=== PATIENT | female | born 1960 | race Caucasian/White ===

== ENCOUNTER 2020-06-09 14:18 | Outpatient (CLI) | payer OTHER, SELFPAY ==
--- NOTE | ~2020-06-09 | XR_ITS ---
XR lumbar spine 2-3V DATE: 06/09/2020 14:40 INDICATION: Low back pain. Injured back lifting items upstairs. TECHNIQUE: AP, lateral, coned lateral lumbosacral views COMPARISON: 05/24/2016 lumbar spine FINDINGS: There is interval mild anterior wedge compression fracture deformity of L3 since 05/24/2006, very likely acute. No other fracture of the lumbar spine is evident. There is diffuse osteopenia. There is severe degenerative disc disease at L5-S1. The sacroiliac joints are intact. Abdominal aortic and bilateral iliac arterial calcifications are noted. IMPRESSION: Likely acute mild anterior wedge compression fracture of L3 Severe degenerative disc disease at L5-S1 Diffuse osteopenia Reviewed, dictated and finalized at location B.
== END 2020-06-09 14:19 | disposition home or self-care (01) ==
LOC: ANHIMG 14:25
PROVIDERS: PCP Physician Assistant; Visit Provider Physician Assistant
DX: M54.5 Low back pain (principal); M51.37 Other intervertebral disc degeneration, lumbosacral region; M85.88 Other specified disorders of bone density and structure, other site
CPT/HCPCS: 72100

== ENCOUNTER 2020-07-02 06:33 | Outpatient (CLI) | payer OTHER, SELFPAY ==
--- NOTE | ~2020-07-02 | MR_ITS ---
EXAMINATION: MR lumbar spine wo con DATE: 07/02/2020 07:13 INDICATION: Wedge fracture of lumbar vertebra. TECHNIQUE: Magnetic resonance imaging (MRI) of the lumbar spine was performed without intravenous con trast. Sequences included sagittal T2-weighted FSE, sagittal STIR FSE, sagittal T1-weighted FSE, and axial T2-weighted FSE. COMPARISON: Lumbar spine radiographs 06/09/2020 FINDINGS: There is 3 degrees levocurvature of lumbar spine. There is a burst fracture of L3 superior endplate with 1/5 loss of height, bone marrow edema, and retropulsion of bone 1 mm into central spina l canal. There is mildly decreased disc height at L4-L5 and severely decreased disc height at L5-S1. The distal spinal cord signal intensity is normal. The conus medullaris is at L1. The following disc levels are specifically discussed: L1-L2: The disc does not extend beyond the endplate margin. There is mild bilateral facet joint osteo arthritis. There is no neural foraminal stenosis. There is no central canal stenosis. L2-L3: The disc is bulging. There is mild bilateral facet joint osteoarthritis. There is mild bilater al neural foraminal stenosis. There is mild central canal stenosis. L3-L4: The disc is bulging. There is mild bilateral facet joint osteoarthritis. There is mild bilater al neural foraminal stenosis. There is no central canal stenosis. L4-L5: The disc is bulging. There is mild right facet joint osteoarthritis. There is mild bilateral n eural foraminal stenosis. There is mild central canal stenosis. L5-S1: The disc is bulging with superimposed right central extrusion that abuts right S1 nerve root i n right lateral recess. There is severe bilateral facet joint osteoarthritis. There is mild bilateral neural foraminal stenosis. There is mild central canal stenosis. IMPRESSION: 1. Subacute L3 burst fracture, stable from 06/09/2020. 2. Severe lower lumbar spondylosis. Reviewed, dictated and finalized at location B.
[2020-07-02 07:39] LABS: Add Urine Microscopic? YES; Appearance Urine Cloudy (Clear); Bacteria Urine Trace /hpf; Bilirubin Urine Negative (Negative); Blood Urine 1+ (Negative); Color Urine Straw (Yellow); Glucose Urine UA Negative (Negative); Ketones Urine Negative (Negative); Leukocyte Esterase Ur Trace LEU/UL (Negative); Mucus Urine Rare /lpf; Nitrate Urine Negative (Negative); Protein Urine Negative (Negative); RBC Urine 0-2 /hpf (0-2); Specific Grav Ur 1.015 (1.001-1.035); Squamous Epithelial Cell Urine Many /hpf (Few); Urobilinogen Urine Negative mg/dL (<2.0); WBC Urine 0-3 /hpf
[2020-07-02 07:46] LABS: Hemoglobin A1C 5.6 % (<5.7)
[2020-07-02 07:48] LABS: Alanine Aminotransferase 22 U/L (4-35); Albumin Level 4.3 g/dL (3.5-5.1); Alkaline Phosphatase 84 U/L (38-126); Anion Gap 8 mmol/L (8-16); Aspartate Amino Transferase 22 U/L (14-36); Bilirubin,Total 0.4 mg/dL (0.2-1.3); Blood Urea Nitrogen 40 mg/dL (7-17); Calcium 8.9 mg/dL (8.4-10.2); Carbon Dioxide 26 mmol/L (22-30); Chloride 101 mmol/L (98-107); Cholesterol 217 mg/dL (0-200); Estimated Glomerular Filt Rate 51; Glucose 99 mg/dL (65-105); HDL Direct 68 mg/dL; Potassium 3.7 mmol/L (3.4-5.0); Sodium 135 mmol/L (137-145); Triglycerides 119 mg/dL (<150)
[2020-07-02 07:55] LABS: Basophils Absolute Auto 0.1 K/mm3 (0.0-0.1); Basophils Percent Auto 0.8 % (0.2-1.2); Eosinophils Absolute Auto 0.3 K/mm3 (0-0.3); Eosinophils Percent Auto 3.9 % (0-4.4); Hematocrit 39.4 % (37.0-47.0); Hemoglobin 12.6 g/dL (12.0-15.0); Immature Granulocyte Absolute 0.04 K/mm3 (0.00-0.031); Immature Granulocyte Percent A 0.5 % (0-0.5); Lymphocytes Absolute Auto 2.19 K/mm3 (0.9-3.2); Lymphocytes Percent Auto 27.4 % (18.3-44.2); Mean Corpuscular Hemoglobin 28.6 pg (26-34); Mean Corpuscular Volume 89.5 fl (80-100); Mean Platelet Volume 9.5 fl (7.4-10.4); Monocytes Absolute Auto 0.9 K/mm3 (0.1-0.6); Monocytes Percent Auto 11.4 % (2.6-8.5); Neutrophils Absolute Auto 4.5 K/mm3 (1.3-6.7); Platelet Count Result 284 k/mm3 (150-375); Red Cell Distribution Width 14.6 % (11.5-14.5)
[2020-07-02 07:59] LABS: LDL Cholesterol Direct 126 mg/dL
[2020-07-02 08:18] LABS: Vitamin D 25 Hydroxy 35.3 ng/mL
== END 2020-07-02 06:34 | disposition home or self-care (01) ==
PROVIDERS: PCP Physician Assistant; Visit Provider Physician Assistant
DX: E55.9 Vitamin D deficiency, unspecified (principal); S32.000A Wedge compression fracture of unspecified lumbar vertebra, initial encounter for closed fracture; I10 Essential (primary) hypertension; E78.5 Hyperlipidemia, unspecified; Z79.899 Other long term (current) drug therapy; Z13.1 Encounter for screening for diabetes mellitus; S32.031A Stable burst fracture of third lumbar vertebra, initial encounter for closed fracture; M47.816 Spondylosis without myelopathy or radiculopathy, lumbar region
CPT/HCPCS: 36415; 72148; 80048; 80061; 80076; 81001; 82306; 83036; 84443; 85025

== ENCOUNTER 2021-03-14 07:25 | Outpatient (CLI) | payer OTHER, SELFPAY ==
[2021-03-14 08:14] LABS: Basophils Absolute Auto 0.1 K/mm3 (0.0-0.1); Basophils Percent Auto 0.5 % (0.2-1.2); Eosinophils Absolute Auto 0.2 K/mm3 (0-0.3); Eosinophils Percent Auto 1.7 % (0-4.4); Hematocrit 40.7 % (37.0-47.0); Immature Granulocyte Absolute 0.04 K/mm3 (0.00-0.031); Immature Granulocyte Percent A 0.4 % (0-0.5); Lymphocytes Absolute Auto 2.02 K/mm3 (0.9-3.2); Lymphocytes Percent Auto 20.6 % (18.3-44.2); Mean Corpuscular HGB Conc 31.9 g/dl (32-36); Mean Corpuscular Hemoglobin 28.4 pg (26-34); Mean Corpuscular Volume 89.1 fl (80-100); Mean Platelet Volume 9.4 fl (7.4-10.4); Monocytes Absolute Auto 1.1 K/mm3 (0.1-0.6); Monocytes Percent Auto 10.7 % (2.6-8.5); Neutrophils Absolute Auto 6.5 K/mm3 (1.3-6.7); Neutrophils Percent Auto 66.1 % (45.5-73.1); Platelet Count Result 289 k/mm3 (150-375); Red Blood Count 4.57 M/mm3 (4.2-5.4); Red Cell Distribution Width 14.2 % (11.5-14.5); White Blood Count 9.8 K/mm3 (4.5-10.0)
[2021-03-14 08:16] LABS: Add Urine Microscopic? YES; Appearance Urine Cloudy (Clear); Bacteria Urine Trace /hpf; Bilirubin Urine Negative (Negative); Blood Urine 1+ (Negative); Color Urine Yellow (Yellow); Glucose Urine UA Negative (Negative); Ketones Urine Negative (Negative); Leukocyte Esterase Ur 1+ LEU/UL (Negative); Mucus Urine Rare /lpf; Nitrate Urine Negative (Negative); Protein Urine 1+ mg/dL (Negative); Specific Grav Ur 1.025 (1.001-1.035); Squamous Epithelial Cell Urine Many /hpf (Few); Urobilinogen Urine Negative mg/dL (<2.0)
[2021-03-14 08:23] LABS: Hemoglobin A1C 5.6 % (<5.7)
[2021-03-14 08:26] LABS: Alanine Aminotransferase 18 U/L (4-35); Albumin Level 4.3 g/dL (3.5-5.1); Alkaline Phosphatase 82 U/L (38-126); Anion Gap 9 mmol/L (8-16); Aspartate Amino Transferase 22 U/L (14-36); Bilirubin,Total 0.5 mg/dL (0.2-1.3); Blood Urea Nitrogen 32 mg/dL (7-17); Calcium 9.4 mg/dL (8.4-10.2); Carbon Dioxide 26 mmol/L (22-30); Chloride 104 mmol/L (98-107); Cholesterol 223 mg/dL (0-200); Estimated Glomerular Filt Rate > 60; Glucose 104 mg/dL (65-105); HDL Direct 74 mg/dL; Potassium 3.4 mmol/L (3.4-5.0); Sodium 139 mmol/L (137-145); Triglycerides 76 mg/dL (<150)
[2021-03-14 08:37] LABS: LDL Cholesterol Direct 121 mg/dL
== END 2021-03-14 07:26 | disposition home or self-care (01) ==
PROVIDERS: PCP Physician Assistant; Visit Provider Physician Assistant
DX: E78.5 Hyperlipidemia, unspecified (principal); Z79.899 Other long term (current) drug therapy; Z13.1 Encounter for screening for diabetes mellitus
CPT/HCPCS: 36415; 80053; 80061; 81001; 83036; 84443; 85025

== ENCOUNTER → 2021-03-15 06:47 | Outpatient (CLI) | payer OTHER, SELFPAY ==
[2021-03-15 20:46] LABS: SARS-CoV-2 RNA PCR Negative
== END ==
PROVIDERS: PCP Physician Assistant; Visit Provider Internal Medicine Gastroenterology
DX: Z01.812 Encounter for preprocedural laboratory examination (principal); Z20.822 Contact with and (suspected) exposure to COVID-19
CPT/HCPCS: C9803; U0003; U0005

== ENCOUNTER 2021-03-16 12:51 | Outpatient (CLI) | payer OTHER, SELFPAY | END 2021-03-16 12:52 | disposition home or self-care (01) | LOC: ANHAUDIO 12:52 | PROVIDERS: PCP Physician Assistant; Visit Provider Physician Assistant | DX: H90.3 Sensorineural hearing loss, bilateral (principal) | CPT/HCPCS: 92557; 92567 ==

== ENCOUNTER 2021-03-18 01:06 | Day surgery (SDC) | payer OTHER, SELFPAY ==
[2021-03-14 15:35] VITALS: BMI 30.7
[2021-03-18 11:59] VITALS: BMI 30.8
[2021-03-18] MEDS: LACTATED RINGERS 1,000 ML 150 ML IV CONT (12:05)
--- NOTE | 2021-03-18 12:06 | WPDANESEPPF ---
Anes - Initial Pre Proc Eval Procedure: Operation Date: 03/18/21 13:00 Proposed Procedures p Esophagogastroduodenoscopy - Nj Wolff MD Date/Time: 03/18/21 12:06 Surgeon: Nj Wolff MD Pre Op Diagnosis: GERD Patient Data Age: 61 Gender: F Height: 5 ft 1 in Weight: 74 kg Allergies Allergy/AdvReac Type Severity Reaction Status Date / Time No Known Allergies Allergy Unverified 03/18/21 11:44 Home Medications Medication Instructions Recorded Confirmed Type diclofenac sodium 75 mg PO DAILY 10/25/19 03/14/21 History esomeprazole magnesium 40 mg PO DAILY 10/25/19 03/14/21 History fluoxetine [Prozac] 20 mg PO DAILY 10/25/19 03/14/21 History hydrochlorothiazide 12.5 mg PO DAILY 10/25/19 03/14/21 History losartan 100 mg PO DAILY 10/25/19 03/14/21 History rosuvastatin 20 mg PO DAILY 10/25/19 03/14/21 History pantoprazole 40 mg PO DAILY 03/14/21 03/14/21 History Patient hx anesthesia problems: none Family hx anesthesia problems: none PMFSH Past Medical History Medical History (Updated 03/18/21 @ 12:06 by George Leahy MD) Anxiety GERD (gastroesophageal reflux disease) Hyperlipidemia Hypertension Family History Family History (Updated 02/23/17 @ 23:56 by DOCTOR UNKNOWN) Father Family history of premature coronary heart disease, Onset Age: 60 Patient's father is Mother Hypertension Family history of elevated blood lipids Other Family history of osteoarthritis Social History Social History Smoking status: Former smoker Tobacco type: cigarettes Alcohol intake: never Substance use type: does not use Living arrangements: with family Gender identity (if verbalized by the patient): Female Spiritual care concerns: No Anes - Eval Final PreProcedure Day of Procedure 03/18/21 12:06 Patient weight: overweight Heart: regular rate and rhythm Lungs: clear to auscultation Airway: Mallampati scale class II Neurological: alert and oriented Last oral intake: >/= 8 hours ASA classification: III Emergent: no Anesthetic plan: proceed Anesthesia type and monitoring: general GIVS and standard monitoring Informed Consent: The patient's anesthetic plan and its attendant risks and benefits were discussed with the patient/family/POA. Questions were solicited and answers provided to the satisfaction of the patient/family/POA.
--- NOTE | 2021-03-18 12:49 | P.CONGI_ITS ---
Assessment and Plan Assessment and plan (1) GERD (gastroesophageal reflux disease): Code(s): K21.9 - Gastro-esophageal reflux disease without esophagitis Status: Inactive Assessment and Plan: patient has chronic heartburn. Many of his symptoms have improved with pantoprazole. She continues to have additional discomfort burning. Is for EGD to assess ongoing pain. Further recommendations will be given after endoscopy. (2) Dysphagia: Code(s): R13.10 - Dysphagia, unspecified Status: Acute Assessment and Plan: Patient notes food catching the mid substernal portion the chest. Plan is for EGD to assess and exclude narrowing or stricture. Further recommendations will be given after endoscopy. GI Consult Note Consult date/time: 03/18/21 12:49 HPI: Rachel Raman is a 61 year old female Presents for evaluation of substernal pain and dysphagia. Patient complains of epigastric substernal discomfort. She has has GE reflux for many years but this symptom has persisted over the last several months. She states that food will catch in the mid substernal portion of the chest. Previously on Nexium her medications were rec ently taken and changed to pantoprazole. She states this helps her heartburn but the chest pain persists. Patient denies any weight loss. Because of ongoing pain she has presents today for EGD. Family history is noncontributory. She denies weight loss or bleeding. Review of Systems Review of Systems: All systems reviewed & are unremarkable except as noted in HPI and below PMFSH Past Medical History Medical History (Updated 03/18/21 @ 12:51 by Nj Wolff MD) Anxiety GERD (gastroesophageal reflux disease) Hyperlipidemia Hypertension Family History Family History (Updated 02/23/17 @ 23:56 by DOCTOR UNKNOWN) Father Family history of premature coronary heart disease, Onset Age: 60 Patient's father is Mother Hypertension Family history of elevated blood lipids Other Family history of osteoarthritis Social History Social History Smoking status: Former smoker Tobacco type: cigarettes Alcohol intake: never Substance use type: does not use Living arrangements: with family Gender identity (if verbalized by the patient): Female Spiritual care concerns: No Meds Home Medications and Allergies Home Medications Medication Instructions Recorded Confirmed Type diclofenac sodium 75 mg PO DAILY 10/25/19 03/14/21 History esomeprazole magnesium 40 mg PO DAILY 10/25/19 03/14/21 History fluoxetine [Prozac] 20 mg PO DAILY 10/25/19 03/14/21 History hydrochlorothiazide 12.5 mg PO DAILY 10/25/19 03/14/21 History losartan 100 mg PO DAILY 10/25/19 03/14/21 History rosuvastatin 20 mg PO DAILY 10/25/19 03/14/21 History pantoprazole 40 mg PO DAILY 03/14/21 03/14/21 History Allergies Allergy/AdvReac Type Severity Reaction Status Date / Time No Known Allergies Allergy Unverified 03/18/21 11:44 Exam Narrative: Exam Narrative: Physical exam reveals patient to be alert. Vital signs stable. HEENT exam unremarkable. Patient is anicteric. Lungs are clear to auscultation and Percussion. Heart is without murmur. abdomen is soft bowel sounds are present nontender with no organomegaly. Digital external rectal exam normal per
[2021-03-18 13:05] VITALS: BP 120/73; PULSE 61; RESP 13; O2SAT 96
[2021-03-18 13:15] VITALS: BP 127/94; PULSE 65; RESP 17; O2SAT 98
[2021-03-18 13:25] VITALS: BP 133/71; PULSE 62; RESP 21; O2SAT 97
== END 2021-03-18 13:44 | disposition home or self-care (01) ==
PROVIDERS: PCP Physician Assistant; Visit Provider Internal Medicine Gastroenterology
PROC: 0DJ08ZZ Inspection of Upper Intestinal Tract, Via Natural or Artificial Opening Endoscopic (ICD-10-PCS; CPT 43235; principal; 2021-03-18 13:00)
DX: R10.13 Epigastric pain (principal); K44.9 Diaphragmatic hernia without obstruction or gangrene; R13.10 Dysphagia, unspecified; F41.9 Anxiety disorder, unspecified; K21.9 Gastro-esophageal reflux disease without esophagitis; E78.5 Hyperlipidemia, unspecified; I10 Essential (primary) hypertension; Z87.891 Personal history of nicotine dependence
CPT/HCPCS: 43235; J2704; J7120

== ENCOUNTER 2021-04-11 08:18 | Outpatient (CLI) | payer OTHER, SELFPAY ==
--- NOTE | ~2021-04-11 | XR_ITS ---
EXAMINATION: XR UGIAC w barium swallow DATE: 04/11/2021 08:58 INDICATION: Diaphragmatic hernia without obstruction or gangrene TECHNIQUE: The patient drank thick barium, gas-producing crystals, and thin barium. Fluoroscopy of th e esophagus, stomach, and proximal small bowel were performed. Fluoroscopy exposure time was 2.1 radha gudelia. The DAP for this procedure was 13.569 Gycm2. COMPARISON: None. FINDINGS: There is no mass or stricture of the esophagus. Esophageal motility is normal. There is a l arge hiatal hernia with much of the stomach intrathoracic in location. Overall there has been little change since the comparison examination. There was no gastroesophageal reflux with provocative maneuv ers. The stomach and proximal small bowel show normal folding patterns. IMPRESSION: 1. Large hiatal hernia without significant change. Reviewed, dictated and finalized at location A.
== END 2021-04-11 08:19 | disposition home or self-care (01) ==
PROVIDERS: PCP Physician Assistant; Visit Provider Surgery
DX: K44.9 Diaphragmatic hernia without obstruction or gangrene (principal)
CPT/HCPCS: 74246

== ENCOUNTER 2021-04-11 15:00 | Outpatient (RCR) | payer OTHER, SELFPAY | END 2021-04-11 23:59 | disposition home or self-care (01) | LOC: ANHAUDIO 15:00 | PROVIDERS: PCP Physician Assistant; Visit Provider Physician Assistant | DX: Z46.1 Encounter for fitting and adjustment of hearing aid (principal) | CPT/HCPCS: V5261 ==

== ENCOUNTER 2021-05-28 06:56 | Outpatient (CLI) | payer OTHER, SELFPAY ==
--- NOTE | 2021-05-28 07:17 | ECG_ITS ---
Measurements Intervals [place] Rate: 70 P: 50 WA: 159 QRS: 50 QRSD: 86 T: 53 QT: 396 QTc: 429 Interpretive Statements SINUS RHYTHM POSSIBLE LEFT ATRIAL ENLARGEMENT DELAYED PRECORDIAL R/S TRANSITION BASELINE ARTIFACT- I, II, III, AVR, AVL, AVF BORDERLINE ECG Electronically Signed On 05-28-2021 15:13:43 CDT by Benjamin Allen D.O.
[2021-05-28 07:24] LABS: Anion Gap 12 mmol/L (8-16); Blood Urea Nitrogen 34 mg/dL (7-17); Carbon Dioxide 23 mmol/L (22-30); Chloride 104 mmol/L (98-107); Estimated Glomerular Filt Rate 56; Glucose 86 mg/dL (65-105); Potassium 3.9 mmol/L (3.4-5.0); Sodium 139 mmol/L (137-145)
== END 2021-05-28 06:57 | disposition home or self-care (01) ==
LOC: ANHLAB 06:58
PROVIDERS: PCP Physician Assistant; Referring Provider Anesthesiology; Visit Provider Surgery
DX: Z01.818 Encounter for other preprocedural examination (principal); Z53.31 Laparoscopic surgical procedure converted to open procedure; I10 Essential (primary) hypertension
CPT/HCPCS: 36415; 80048; 86850; 86900; 86901; 93005

== ENCOUNTER 2021-06-01 13:51 | Inpatient (IN) | payer OTHER, SELFPAY ==
[2021-05-25 13:16] VITALS: BMI 30.8
--- NOTE | 2021-05-30 17:12 | PM.IMHP ---
H&P: HPI History of Present Illness Date/Time: 05/30/21 17:12 Chief Complaint: Chest pain after eating Narrative: patient is a 61-year-old woman who has had trouble with dysphagia and chest pain for quite some time. She had heartburn with burning pain in the substernal area but this was pretty much relieved by taking Protonix daily. However she would notice substernal chest pain that lasted anywhere from 30 minutes to a few hours after eating. She feels that food gets stuck after swallowing. She was seen by Dr. jasmyn mckeon in February and underwent an EGD. This showed a very large hiatal hernia. She was seen in my office in consultation. She had a barium swallow upper GI which showed a very large hiatal hernia with nearly complete intrathoracic stomach. She also underwent esophageal manometry at [facility]. This showed a large hiatal hernia. It also showed normal esophageal peristalsis and a hypotensive lower esophageal sphincter. After discussion, she is taken to surgery now for laparoscopic repair of paraesophageal hiatal hernia with Sherrell fundoplication. Review of Systems Review of Systems: All systems reviewed & are unremarkable except as noted in HPI and below Constitutional: Constitutional: Denies chills and Denies fever(s) Cardiovascular: Cardiovascular: Reports chest pain, Denies diaphoresis, Denies dyspnea and Denies paroxysmal nocturnal dyspnea Respiratory: Respiratory: Denies chest congestion, Denies cough and Denies dyspnea Gastrointestinal: Gastrointestinal: Reports as per HPI and Reports heartburn Integumentary/Breasts: Skin/Breast: Denies lesions and Denies rash PMFSH Past Medical History Medical History Anxiety Depression GERD (gastroesophageal reflux disease) Hyperlipidemia Hypertension Surgical History Surgical History H/O: hysterectomy S/p bilateral carpal tunnel release S/P hemorrhoidectomy S/P trigger finger release Family History Family History Father Family history of premature coronary heart disease, Onset Age: 60 Patient's father is Mother Hypertension Family history of elevated blood lipids Unknown Heart disease Hypertension Nervous disorder Other Family history of osteoarthritis Social History Social History Smoking packs per day: 0.15 Smoking cigarettes per day: 3.0 Years smoked: 5 Smoking pack-years: 0.75 Smoking status: Former smoker Tobacco type: cigarettes Smoking end date: 11/19/89 Alcohol intake: current Substance use: never Substance use type: does not use Gender identity (if verbalized by the patient): Female Spiritual care concerns: No Meds Home Medications and Allergies Home Medications Medication Instructions Recorded Confirmed Type diclofenac sodium 75 mg PO DAILY 10/25/19 05/25/21 History fluoxetine [Prozac] 40 mg PO DAILY 10/25/19 05/25/21 History hydrochlorothiazide 12.5 mg PO DAILY 10/25/19 05/25/21 History losartan 100 mg PO DAILY 10/25/19 05/25/21 History rosuvastatin 20 mg PO DAILY 10/25/19 05/25/21 History pantoprazole 40 mg PO DAILY 03/14/21 05/25/21 History Allergies Allergy/AdvReac Type Severity Reaction Status Date / Time No Known Allergies Allergy Verified 04/04/21 13:57 Exam Const: General: comfortable, no acute distress, alert and awake HENMT: Head: normocephalic and atraumatic Ears: hearing grossly normal bilaterally ( Patient has bilateral hearing aids) and external ears normal General nose exam: Normal external nose present, no nasal discharge noted and no epistaxis Face and sinus: normal facial exam, face symmetric, no tenderness and dry mucous membranes Mouth: Yes Normal oral and palatal mucosa present and No tongue abnormal Eyes: Conjunctivae:
[2021-06-01] VITALS (15 sets, daily range): BP systolic 112–146; BP diastolic 59–85; PULSE 67–87; RESP 12–18; TEMP 35.8–36.7; O2SAT 93–100
--- NOTE | ~2021-06-01 | XR_ITS ---
EXAMINATION: XR esophogram water soluble DATE: 06/04/2021 11:24 INDICATION: Patient status post repair of esophageal laceration TECHNIQUE: The patient drank water-soluble contrast. Fluoroscopy of the esophagus was performed. Fluo roscopy exposure time was 0.8 minutes. The DAP for this procedure was 21.923 Gycm2. COMPARISON: 04/11/2021 FINDINGS: Changes of interval hiatal hernia repair are noted. No esophageal leak is identified. IMPRESSION: 1. No esophageal leak identified. Reviewed, dictated and finalized at location A.
--- NOTE | 2021-06-01 06:26 | WPDANESEPPF ---
Anes - Initial Pre Proc Eval Procedure: Operation Date: 06/01/21 07:30 Proposed Procedures p Laparoscopic Sherrell Fundoplication - Tima Victor MD Date/Time: 06/01/21 06:26 Surgeon: Tima Victor MD Pre Op Diagnosis: paraesophageal hiatal hernia Patient Data Age: 61 Gender: F Height: 1.55 m Weight: 74 kg Allergies Allergy/AdvReac Type Severity Reaction Status Date / Time No Known Allergies Allergy Verified 06/01/21 06:14 Home Medications Medication Instructions Recorded Confirmed Type diclofenac sodium 75 mg PO DAILY 10/25/19 06/01/21 History fluoxetine [Prozac] 40 mg PO DAILY 10/25/19 06/01/21 History hydrochlorothiazide 12.5 mg PO DAILY 10/25/19 06/01/21 History losartan 100 mg PO DAILY 10/25/19 06/01/21 History rosuvastatin 20 mg PO DAILY 10/25/19 06/01/21 History pantoprazole 40 mg PO DAILY 03/14/21 06/01/21 History Patient hx anesthesia problems: none Family hx anesthesia problems: none PMFSH Past Medical History Medical History (Updated 06/01/21 @ 06:26 by Paras Sorensen MD) Anxiety Depression GERD (gastroesophageal reflux disease) Hyperlipidemia Hypertension SVT (supraventricular tachycardia) Surgical History Surgical History H/O: hysterectomy S/p bilateral carpal tunnel release S/P hemorrhoidectomy S/P trigger finger release Family History Family History Father Family history of premature coronary heart disease, Onset Age: 60 Patient's father is Mother Hypertension Family history of elevated blood lipids Unknown Heart disease Hypertension Nervous disorder Other Family history of osteoarthritis Social History Social History Smoking packs per day: 0.15 Smoking cigarettes per day: 3.0 Years smoked: 5 Smoking pack-years: 0.75 Smoking status: Former smoker Tobacco type: cigarettes Smoking end date: 11/19/89 Alcohol intake: current Substance use: never Substance use type: does not use Living arrangements: with family Gender identity (if verbalized by the patient): Female Sexual Orientation (if Verbalized by the Patient): Lesbian, Hyatt, or Homosexual Spiritual care concerns: No Anes - Eval Final PreProcedure Day of Procedure 06/01/21 06:26 Patient weight: obese Heart: regular rate and rhythm Lungs: clear to auscultation Airway: Mallampati scale class II Neurological: alert and oriented Last oral intake: >/= 8 hours ASA classification: III Emergent: no Anesthetic plan: proceed Anesthesia type and monitoring: general ETT and standard monitoring Informed Consent: The patient's anesthetic plan and its attendant risks and benefits were discussed with the patient/family/POA. Questions were solicited and answers provided to the satisfaction of the patient/family/POA.
[2021-06-01] MEDS: LACTATED RINGERS 1,000 ML 30 ML IV CONT ×2 (06:50→12:01)
--- NOTE | 2021-06-01 06:54 | WPDHPUPDATE1 ---
History and Physical Update Update Date/Time: 06/01/21 06:54 History and Physical has been reviewed, including an updated exam of the patient. There are NO changes in the patient's condition. Risks, benefits, and alternatives have been discussed and questions answered. Patient agrees to proceed with procedure.
[2021-06-01] MEDS: ceFAZolin 2 GM/D5W 50 ML 2 GM/50 ML BAG IVPB (07:23)
[2021-06-01] MEDS: BUPIVACAINE/EPINEPHRINE 0.5% 30 ML VIAL INFILTRATE (07:49)
[2021-06-01] MEDS: ceFAZolin 1 GM in DEXTROSE 5% IN WATER 50 ML IVPB (12:27)
[2021-06-01] MEDS: fentaNYL CITRATE INJ (*CRX) 100 MCG/2 ML VIAL 25 MCG IV PUSH ×6 (12:39→13:26)
--- NOTE | 2021-06-01 12:42 | SUR.PHASEI ---
1235; DR CABAN AT BEDSIDE, SPEAKING WITH PT REGARDING PAIN CONTROL. PT STARTED MOANING SOFTLY 5-6 MINUTES AGO. PT STATES PAIN 4/10. DR CABAN SAID IF PAIN WORSENS SHE CAN HAVE OTHER MEANS OF PAIN CONTROL. DR FINNEY ORDERED A TEST ENGINE MECHANIC FOR THE FLOOR.
--- NOTE | 2021-06-01 13:20 | SUR.PHASEI ---
DR FINNEY AT BEDSIDE SPEAKING WITH PT. NOTIFIED OF 2 SHADOW DRAINAGE SPOTS, CIRCLED.
--- NOTE | 2021-06-01 13:55 | ADMGEN ---
This patient, Rachel Raman, was admitted to Medical Room 250-01. Patient/family oriented to hospital policies and general routines including ID bracelet, bed and alarms, visiting hours, pain management, procedures, bathroom and other care routines, personal items, smoking policy, room service/diet, and visiting hours. Information on how to activate the Rapid Response Team has been discussed. Patient/Family are encouraged to report perceived risks to care and to ask questions if they do not understand what they are told or what they should do.
--- OUTSIDE RECORDS SUMMARY | 2021-06-01 14:04 | XMS_ITS ---
:1960 Author Care Team Providers Name Role Phone Menossi Primary Care Provider Unavailable Allergies Code Code System Name Reaction Severity Status Onset NKDA ? Medications Name Status Start Date Stop Date ? ? diclofenac sodium 75 mg tablet,delayed release Active ? Not available TAKE ONE TABLET TWICE A DAY WITH MEALS esomeprazole magnesium 40 mg capsule,delayed release Completed ? 02/25/2021 TAKE 1 CAPSULE BY MOUTH EVERY DAY. CALL FOR APPOINTMENT Estrace 0.01% (0.1 mg/gram) vaginal cream Completed ? 02/13/2018 INSERT 0.5 GRAMS TWICE A WEEK VAGINALLY HS FOR 14 DAYS fluconazole 150 mg tablet Completed ? 2016 TK 2 TS PO FOR 1 DAY. REPEAT IN 1 WK fluoxetine 20 mg capsule Completed ? 019 fluoxetine 40 mg capsule Active ? Not lila ilable TAKE 1 CAPSULE BY MOUTH EVERY DAY hydrochlorothiazide 12.5 mg tablet Active ? Not available TAKE 1 TABLET BY MOUTH EVERY DAY Iron (ferrous sulfate) 325 mg (65 mg iron) tablet Completed ? 08/20/2018 Take 1 tablet twice a day by oral route. ketoconazole 2 % shampoo Completed ? 018 U BODY WASH D FOR 1 WK FOR FLARES THEN 1 TO 2 TIMES PER WK FOR MAINTENANCE losartan 100 mg tablet Active ? Not avail able TAKE 1 TABLET BY MOUTH EVERY DAY losartan 50 mg tablet Completed ? 08/27/2017 TAKE ONE TABLET BY MOUTH ONCE DAILY lovastatin 10 mg tablet Completed ? 02/14/20 18 TK 1 T PO QD lovastatin 20 mg tablet Completed
--- OUTSIDE RECORDS SUMMARY | 2021-06-01 14:04 | XMS_ITS ---
:1960 Author Care Team Providers Name Role Phone ALLEY ACEVEDO MD Weather Forecaster [phone] Allergies Code Code System Name Reaction Severity Status Onset NKDA ? Medications Name Status Start Date Stop Date ? ? diclofenac sodium 75 mg tablet,delayed release Active ? Not available TAKE ONE TABLET TWICE A DAY WITH MEALS esomeprazole magnesium 40 mg capsule,delayed release Active ? Not available TAKE 1 CAPSULE BY MOUTH EVERY DAY. [...] T PO QD lovastatin 20 mg tablet Comple
[2021-06-01] MEDS: LACTATED RINGERS 1,000 ML 100 ML IV CONT (14:20)
[2021-06-01] MEDS: ONDANSETRON INJ 4 MG/2 ML VIAL IV PUSH ×2 (14:20→20:19)
[2021-06-01] MEDS: IBUPROFEN IV 800 MG/200 ML 800 MG/200 ML BAG 400 MG IVPB ×2 (14:39→21:56)
[2021-06-01] MEDS: MORPHINE SULFATE PCA (*CRX) 30 MG/30 ML SYR IV CONT ×2 (15:06→15:10)
--- NOTE | 2021-06-01 16:45 | W.PM.PROC2 ---
Procedure Note - Detailed Date of Procedure 06/01/21 Pre-op Diagnosis paraesophageal hiatal hernia Post-op Diagnosis other ( paraesophageal hiatal hernia, distal esophageal injury) Procedure Performed attempted laparoscopic repair of paraesophageal hiatal hernia with Sherrell fundoplication, open repair of esophageal laceration, open Sherrell fundoplication Surgeon Tima Victor MD Business Continuity Strategy Director Taylor ZHOU Anesthesia general and local ( 0.5% Marcaine with epinephrine) Indications the patient is a 61-year-old woman who has had gastroesophageal reflux disease and a large hiatal hernia for quite some time. She takes Protonix which relieves the heartburn. However she has been having obstructive symptoms and was found to have a paraesophageal hiatal hernia. Her symptoms have been getting worse. She is taken to surgery now for repair with Sherrell fundoplication. Findings Very large hiatal hernia with probably 80% of the stomach in the mediastinum. After having repair the esophageal hiatus laparoscopically, we created the fundoplication held in place by noncrushing clamps. While passing esophageal bougie dilators, it was noted there was a linear distal esophageal perforation. It is unclear at what point in the surgery this occurred. The surgery was converted to open surgery so that the esophageal opening could be safely repaired. The fundoplication was then done in open fashion. Description of Procedure The patient was taken to surgery and induced into general anesthesia. The abdomen was prepped and draped. Local anesthetic was infiltrated prior to placement of each of the trocars. 0.5% Marcaine with epinephrine was used. The initial trocar was in the midline above the umbilicus. Local was infiltrated and incision was made. The varies needle was passed through the abdominal wall into the peritoneal cavity. This was verified by saline drop technique. We then insufflated CO2 through the varies needle. Once there was adequate insufflation, a 10 11 trocar was with optical placement was positioned in the peritoneal cavity without incident. We then insufflated through this trocar and placed our left subcostal trocar which was also a 10 11 trocar. We placed the camera in this location. Right and left hypogastric 10 11 trocars were then placed under direct visualization. A 12 mm right subcostal trocar was also placed. The liver retractor was then placed in the 12 mm port and positioned so that the lateral segment of the left lobe of the liver was elevated and the esophageal hiatus and stomach were exposed. The patient was placed in reverse Trendelenburg. The LigaSure was used for hemostasis and much of the dissection. We started by reducing as much of the stomach as we could. Probably 60-70% of the hiatal hernia was able to be reduced in this fashion. However the stomach was reluctant to stay in this position which is not unusual. Noncrushing clamps were used to place mild traction on the stomach. The right chris was exposed. Using the LigaSure, the hepatogastric ligament was divided. There was some bleeding associated with this which required cautery. There appeared to be an aberrant vessel possibly the left gastric coming off the SMA. It traversed from the liver area under the diaphragm to the herniated stomach. This was preserved throughout the surgery. We further exposed the rice chris of the diaphragm and then proceeded to the apex of the diaphragm. This was likewise freed using the LigaSure. We were then able to reduce a bit more of the stomach. This dissection was continued over to the left chris at its anterior aspect. We went back to the right side and eventually freed enough of the hernia sac that we could see the mediastinum and the remaining herniated stomach quite well. Further dissection was done freeing more the stomach and eventually I was able to see some of the esophagus. I then flipped the stomach to the patient's right si
--- NOTE | 2021-06-01 20:26 | PC.NURSE ---
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 unable to set rate to 0 on JAN. Pharmacy notified by Stephanie FRENCH.
[2021-06-01] MEDS: ENOXAPARIN 30 MG/0.3 ML SYRINGE SUB-Q (21:58)
[2021-06-02] VITALS (7 sets, daily range): BP systolic 122–148; BP diastolic 68–83; PULSE 82–96; RESP 16–20; TEMP 37–37.2; O2SAT 92–94
[2021-06-02] MEDS: LACTATED RINGERS 1,000 ML 100 ML IV CONT ×2 (00:51→13:28)
[2021-06-02] MEDS: IBUPROFEN IV 800 MG/200 ML 800 MG/200 ML BAG 400 MG IVPB ×4 (03:26→22:27)
[2021-06-02 05:45] LABS: Hematocrit 35.7 % (37.0-47.0); Mean Corpuscular HGB Conc 33.6 g/dl (32-36); Mean Corpuscular Hemoglobin 29.1 pg (26-34); Mean Corpuscular Volume 86.4 fl (80-100); Mean Platelet Volume 9.6 fl (7.4-10.4); Platelet Count Result 239 k/mm3 (150-375); Red Blood Count 4.13 M/mm3 (4.2-5.4); Red Cell Distribution Width 14.1 % (11.5-14.5); White Blood Count 13.5 K/mm3 (4.5-10.0)
[2021-06-02 05:53] LABS: Anion Gap 7 mmol/L (8-16); Blood Urea Nitrogen 19 mg/dL (7-17); Calcium 8.3 mg/dL (8.4-10.2); Carbon Dioxide 25 mmol/L (22-30); Chloride 104 mmol/L (98-107); Estimated CRCL calculation 67 ml/min; Estimated Glomerular Filt Rate > 60; Glucose 119 mg/dL (65-105); Potassium 3.6 mmol/L (3.4-5.0); Sodium 136 mmol/L (137-145)
[2021-06-02] MEDS: ENOXAPARIN 30 MG/0.3 ML SYRINGE SUB-Q ×2 (08:43→21:15)
[2021-06-02] MEDS: FLUoxetine HCL 20 MG CAPSULE 40 MG PO (08:44)
--- NOTE | 2021-06-02 12:34 | WPDANESPN ---
Anes - Prog Note Post-Op Date/Time: 06/02/21 12:34 Cardiovascular status: normal Respiratory status: normal Airway patency: baseline Mental status: baseline Post-Op hydration status: normal Vital Signs: Last Vital Signs Temp 37.2 C 06/02/21 09:14 Pulse 82 06/02/21 09:14 Resp 18 06/02/21 09:14 BP 140/79 06/02/21 09:14 Pulse Ox 93 06/02/21 10:12 Pain Score (VAS): 3-4/10 I/O: Intake & Output 06/01/21 06/02/21 06/02/21 23:59 07:59 15:59 Intake Total 250 1451 200 Output Total 150 Balance 250 1301 200 Laboratory Tests 06/02/21 05:22 06/02/21 05:22 06/02/21 06/02/21 05:22 05:22 WBC 13.5 H RBC 4.13 L Hgb 12.0 Hct 35.7 L MCV 86.4 MCH 29.1 MCHC 33.6 RDW 14.1 Plt Count 239 MPV 9.6 Sodium 136 L Potassium 3.6 Chloride 104 Carbon Dioxide 25 Anion Gap 7 L BUN 19 H D Creatinine 0.70 Estim Creat Clear Calc 67 Estimated GFR > 60 Glucose 119 H Calcium 8.3 L Post-procedural complaints: none Patient Feedback: Patient satisfied with anesthetic care.
--- NOTE | 2021-06-02 13:50 | PM.PNGS ---
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 Continue NPO for now. Possibly start some liquids tomorrow. Patient requests no narcotics and is receiving IV Tylenol and IV ibuprofen p.r.n. for pain. Has been getting up in using the commode. Will start dressing changes. Doing well so far. (2) Esophageal laceration: Code(s): K22.8 - Other specified diseases of esophagus Status: Acute Assessment and Plan: Repaired at surgery. Buttressed with the fundoplication. No problems identified as yet. Continue NPO and IV Ancef. Subjective Subjective Date/Time Seen: 06/02/21 13:50 Post Op day: 1 Patient reports: pain is less ( Patient does not want morphine because it made her palms burn), no flatus, no bowel movement and afebrile Review of Systems Review of Systems: All systems reviewed & are unremarkable except as noted in HPI and below Constitutional: Constitutional: Denies anorexia, Denies chills, Denies fever(s), Denies headache(s) and Reports increased appetite Cardiovascular: Cardiovascular: Denies chest pain and Denies dyspnea Respiratory: Respiratory: Denies cough and Denies dyspnea Gastrointestinal: Gastrointestinal: Reports as per HPI, Reports abdominal pain, Denies nausea and Denies vomiting Neurologic: Denies confusion and Denies headache(s) Exam Const: General: comfortable and no acute distress; No confusion Orientation/consciousness: patient oriented x3 and No confusion Resp: Effort & Inspection: normal respiratory effort Auscultation: clear to auscultation bilaterally GI: Inspection: non-distended and incision ( incisions all healing well) GI Palp: Yes Soft to palpation, Yes Tenderness to palpation present (GI) ( fairly mild tenderness, less than expected), No Guarding due to palpation present (GI) and No Rebound tenderness present Neuro: General: patient oriented x3, no focal motor deficits and No confusion Extrem: General: no calf tenderness and no edema Psych: Affect: normal affect Insight: Good insight present (Psych) Judgement: Good judgement present (Psych) Objective Data Vital Signs Vital Signs: Vital Signs - 24 hr 06/01/21 13:55 06/01/21 14:40 06/01/21 15:06 Temperature 35.8 C L 36.1 C L Pulse Rate 69 67 Respiratory Rate 16 16 18 Blood Pressure 122/66 119/77 Pulse Oximetry 96 93 06/01/21 15:10 06/01/21 15:40 06/01/21 20:49 Temperature 36.0 C L 36.2 C L 36.7 C Pulse Rate 68 69 83 Respiratory Rate 16 16 18 Blood Pressure 125/73 124/71 135/78 Pulse Oximetry 94 94 94 06/02/21 04:55 06/02/21 08:43 06/02/21 09:14 Temperature 37.1 C 37.2 C Pulse Rate 96 82 Respiratory Rate 20 18 18 Blood Pressure 122/68 140/79 Pulse Oximetry 92 93 94 06/02/21 10:12 06/02/21 12:00 Temperature 37.0 C Pulse Rate 84 Respiratory Rate 20 Blood Pressure 144/80 H Pulse Oximetry 93 92 Intake/Output Intake/Output: Intake & Output 05/30/21 05/31/21 06/01/21 06/02/21 23:59 23:59 23:59 23:59 Intake Total 930 2751 Output Total 125 150 Balance 805 2601 Meds/Results Medications: Active Medications Generic Name Dose Route Start Last Admin Trade Name Susan PRN Reason Stop Dose Admin Alvimopan 12 mg 06/02/21 21:00 Alvimopan 12 Mg Capsule PO 06/09/21 21:01 Q12HR DELBERT Enoxaparin Sodium 30 mg 06/01/21 21:00 06/02/21 08:43 Enoxaparin 30 Mg/0.3 Ml Syringe SUB-Q 30 mg Q12HR DELBERT Administration Fluoxetine HCl 40 mg 06/02/21 09:00 06/02/21 08:44 Fluoxetine Hcl 20 Mg Capsule PO 40 mg DAILY DELBERT Administration Lactated Ringer's 1,000 mls @ 100 mls/hr 06/01/21 13:51 06/02/21 13:28 Lr - Lactated Ringers Iv IV CONT 100 mls/hr .Q10H DELBERT Administration Ibuprofen 800 mg in 200 mls @ 400 mls/hr 0
[2021-06-02] MEDS: KCL 40 MEQ/D5/0.9% SOD CHL 1,000 ML 80 ML IV CONT (16:14)
[2021-06-03] VITALS (7 sets, daily range): BP systolic 137–149; BP diastolic 71–79; PULSE 84–91; RESP 14–18; TEMP 36.4–37.1; O2SAT 93–95
[2021-06-03] MEDS: IBUPROFEN IV 800 MG/200 ML 800 MG/200 ML BAG 400 MG IVPB ×3 (02:15→20:58)
[2021-06-03 05:50] LABS: Hematocrit 32.3 % (37.0-47.0); Hemoglobin 10.3 g/dL (12.0-15.0); Mean Corpuscular HGB Conc 31.9 g/dl (32-36); Mean Corpuscular Hemoglobin 28.2 pg (26-34); Mean Corpuscular Volume 88.5 fl (80-100); Mean Platelet Volume 9.4 fl (7.4-10.4); Platelet Count Result 206 k/mm3 (150-375); Red Blood Count 3.65 M/mm3 (4.2-5.4); Red Cell Distribution Width 14.5 % (11.5-14.5); White Blood Count 12.2 K/mm3 (4.5-10.0)
[2021-06-03 06:04] LABS: Anion Gap 4 mmol/L (8-16); Blood Urea Nitrogen 12 mg/dL (7-17); Calcium 7.9 mg/dL (8.4-10.2); Carbon Dioxide 26 mmol/L (22-30); Chloride 110 mmol/L (98-107); Estimated CRCL calculation 67 ml/min; Estimated Glomerular Filt Rate > 60; Glucose 101 mg/dL (65-105); Potassium 3.7 mmol/L (3.4-5.0); Sodium 140 mmol/L (137-145)
[2021-06-03] MEDS: ACETAMINOPHEN 500 MG TABLET 1000 MG PO ×3 (06:07→17:56)
[2021-06-03] MEDS: KCL 40 MEQ/D5/0.9% SOD CHL 1,000 ML 80 ML IV CONT (08:12)
[2021-06-03] MEDS: ENOXAPARIN 30 MG/0.3 ML SYRINGE SUB-Q ×2 (08:16→21:06)
[2021-06-03] MEDS: FLUoxetine HCL 20 MG CAPSULE 40 MG PO (08:17)
[2021-06-03] MEDS: IBUPROFEN IV 800 MG/200 ML 800 MG/200 ML BAG 200 MG IVPB (08:18)
--- NOTE | 2021-06-03 11:01 | PM.PNGS ---
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 No complaints of problems swallowing ice chips or pills. Blood pressure is a little high so will restart her losartan and hydrochlorothiazide. Incision healing well. Comfortable on IV acetaminophen as well as IV ibuprofen. Up walking more today. Continue NPO and IV fluids for now. (2) Esophageal laceration: Code(s): K22.8 - Other specified diseases of esophagus Status: Acute Assessment and Plan: Continue IV Ancef in NPO. Will get Gastrografin esophagram tomorrow. If no leak, can start on clear liquids. Subjective Subjective Date/Time Seen: 06/03/21 11:01 Post Op day: 2 Patient reports: feels better, pain is less, flatus, no bowel movement and afebrile Review of Systems Review of Systems: All systems reviewed & are unremarkable except as noted in HPI and below Constitutional: Constitutional: Denies chills, Denies fever(s), Denies headache(s) and Denies poor appetite Cardiovascular: Cardiovascular: Denies chest pain and Denies dyspnea Respiratory: Respiratory: Denies cough and Denies dyspnea Gastrointestinal: Gastrointestinal: Reports as per HPI, Denies abdominal pain, Denies heartburn, Denies nausea and Reports other ( no dysphagia) Neurologic: Denies confusion and Denies headache(s) Exam Const: General: comfortable and no acute distress; No confusion Orientation/consciousness: patient oriented x3 and No confusion GI: Inspection: non-distended and incision ( incision looks good, healing well) GI Palp: Yes Soft to palpation, Yes Tenderness to palpation present (GI) ( appropriate incisional tenderness), No Guarding due to palpation present (GI) and No Rebound tenderness present Neuro: General: patient oriented x3, no focal motor deficits and No confusion Extrem: General: no calf tenderness and no edema Psych: Affect: normal affect Insight: Good insight present (Psych) Judgement: Good judgement present (Psych) Objective Data Vital Signs Vital Signs: Vital Signs - 24 hr 06/02/21 12:00 06/02/21 18:00 06/02/21 20:00 Temperature 37.0 C 37.0 C 37.1 C Pulse Rate 84 87 91 Respiratory Rate 20 18 16 Blood Pressure 144/80 H 144/79 H 148/83 H Pulse Oximetry 92 93 94 06/03/21 06:57 06/03/21 10:00 Temperature 36.6 C 36.4 C Pulse Rate 88 91 Respiratory Rate 18 18 Blood Pressure 137/71 149/77 H Pulse Oximetry 93 93 Intake/Output Intake/Output: Intake & Output 05/31/21 06/01/21 06/02/21 06/03/21 23:59 23:59 23:59 23:59 Intake Total 930 3551 1450 Output Total 125 1850 500 Balance 805 1701 950 Meds/Results Medications: Active Medications Generic Name Dose Route Start Last Admin Trade Name Freq PRN Reason Stop Dose Admin Acetaminophen 1,000 mg 06/03/21 06:01 06/03/21 06:07 Acetaminophen 500 Mg Tablet PO 1,000 mg Q6H PRN Administration Mild Pain (1-3) or Fever Enoxaparin Sodium 30 mg 06/01/21 21:00 06/03/21 08:16 Enoxaparin 30 Mg/0.3 Ml Syringe SUB-Q 30 mg Q12HR DELBERT Administration Fluoxetine HCl 40 mg 06/02/21 09:00 06/03/21 08:17 Fluoxetine Hcl 20 Mg Capsule PO 40 mg DAILY DELBERT Administration Hydrochlorothiazide 12.5 mg 06/03/21 11:00 Hydrochlorothiazide 12.5 Mg Capsule PO DAILY DELBERT Hydrochlorothiazide 12.5 mg 06/03/21 10:59 Hydrochlorothiazide 12.5 Mg Capsule PO 06/03/21 11:00 ONCE ONE Ibuprofen 800 mg in 200 mls @ 400 mls/hr 06/01/21 15:00 06/03/21 08:50 Caldolor 800 Mg/200 Ml IVPB Infused Q6H DELBERT Infusion Cefazolin Sodium 1 gm in 50 mls @ 100 mls/hr 06/02/21 14:50 06/03/21 05:45 Ancef 1 Gm/D5w 50 Ml Pm IVPB Infused Q8HR DELBERT Infusion Potassium Chloride/Dextrose/Sod Cl 1,000 mls @ 80 mls/hr 06/03/21 11:00 Kcl 40 Meq/D5 1/2ns IV CONT .[id number] DELBERT
[2021-06-03] MEDS: KCL 40 MEQ/D5 1/2NS 1,000 ML 80 ML IV CONT (11:51)
[2021-06-03] MEDS: LOSARTAN POTASSIUM 100 MG TABLET PO (12:50)
[2021-06-03] MEDS: hydroCHLOROthiazide 12.5 MG CAPSULE PO (12:57)
[2021-06-03] MEDS: ROSUVASTATIN 10 MG TABLET 20 MG PO (13:41)
[2021-06-04] VITALS: BP 127/61; PULSE 76; RESP 16; TEMP 36.9; O2SAT 95
[2021-06-04] MEDS: ACETAMINOPHEN 500 MG TABLET 1000 MG PO (00:01)
[2021-06-04] MEDS: KCL 40 MEQ/D5 1/2NS 1,000 ML 80 ML IV CONT ×2 (00:02→12:13)
[2021-06-04] MEDS: IBUPROFEN IV 800 MG/200 ML 800 MG/200 ML BAG 400 MG IVPB ×4 (03:11→21:00)
[2021-06-04 04:00] VITALS: BP 122/59; PULSE 81; RESP 18; TEMP 36.4; O2SAT 93
[2021-06-04 06:00] LABS: Hemoglobin 9.7 g/dL (12.0-15.0); Mean Corpuscular HGB Conc 31.3 g/dl (32-36); Mean Corpuscular Hemoglobin 28.5 pg (26-34); Mean Corpuscular Volume 91.2 fl (80-100); Mean Platelet Volume 9.4 fl (7.4-10.4); Platelet Count Result 212 k/mm3 (150-375); Red Cell Distribution Width 14.5 % (11.5-14.5); White Blood Count 11.6 K/mm3 (4.5-10.0)
[2021-06-04 06:12] LABS: Anion Gap 6 mmol/L (8-16); Blood Urea Nitrogen 10 mg/dL (7-17); Calcium 8.1 mg/dL (8.4-10.2); Carbon Dioxide 24 mmol/L (22-30); Chloride 107 mmol/L (98-107); Estimated CRCL calculation 77 ml/min; Estimated Glomerular Filt Rate > 60; Glucose 97 mg/dL (65-110); Potassium 3.7 mmol/L (3.4-5.0); Sodium 137 mmol/L (137-145)
--- NOTE | 2021-06-04 07:41 | PM.PNGS ---
Progress Note: A&P Assessment and Plan (1) GERD (gastroesophageal reflux disease): Code(s): K21.9 - Gastro-esophageal reflux disease without esophagitis Status: Chronic Assessment and Plan: doing well postop day 3. Will get water soluble contrast esophagram this morning. If no evidence of esophageal leak, will start clear liquids. (2) Esophageal laceration: Code(s): K22.8 - Other specified diseases of esophagus Status: Acute Subjective Subjective Date/Time Seen: 06/04/21 07:41 Post Op day: 3 Patient reports: no new complaints, feels better, pain is less and afebrile Interval history: no dysphagia, pain is improving. Anxious to eat something. Review of Systems Review of Systems: All systems reviewed & are unremarkable except as noted in HPI and below Constitutional: Constitutional: Denies headache(s) Cardiovascular: Cardiovascular: Denies chest pain and Denies dyspnea Respiratory: Respiratory: Denies cough and Denies dyspnea Gastrointestinal: Gastrointestinal: Reports as per HPI Neurologic: Denies confusion and Denies headache(s) Exam Const: General: comfortable and no acute distress; No confusion Orientation/consciousness: patient oriented x3 and No confusion GI: Inspection: non-distended and incision ( Continues to heal well) GI Palp: Yes Soft to palpation, Yes Tenderness to palpation present (GI) ( minimal incisional tenderness), No Guarding due to palpation present (GI) and No Rebound tenderness present Auscultation: normal bowel sounds Extrem: General: no calf tenderness and no edema Objective Data Vital Signs Vital Signs: Vital Signs - 24 hr 06/03/21 08:17 06/03/21 10:00 06/03/21 11:55 Temperature 36.4 C 36.4 C Pulse Rate 91 Respiratory Rate 18 18 Blood Pressure 149/77 H Pulse Oximetry 95 93 06/03/21 13:36 06/03/21 18:00 06/03/21 20:00 Temperature 37.1 C 36.8 C 36.9 C Pulse Rate 86 84 85 Respiratory Rate 14 16 16 Blood Pressure 141/79 H 137/76 148/79 H Pulse Oximetry 94 95 94 06/04/21 00:00 Temperature 36.9 C Pulse Rate 76 Respiratory Rate 16 Blood Pressure 127/61 Pulse Oximetry 95 Intake/Output Intake/Output: Intake & Output 06/01/21 06/02/21 06/03/21 06/04/21 23:59 23:59 23:59 23:59 Intake Total 930 3551 1950 1250 Output Total 125 1850 1400 Balance 805 5597 499 4635 Meds/Results Medications: Active Medications Generic Name Dose Route Start Last Admin Trade Name Freq PRN Reason Stop Dose Admin Acetaminophen 1,000 mg 06/03/21 06:01 06/04/21 00:01 Acetaminophen 500 Mg Tablet PO 1,000 mg Q6H PRN Administration Mild Pain (1-3) or Fever Enoxaparin Sodium 30 mg 06/01/21 21:00 06/03/21 21:06 Enoxaparin 30 Mg/0.3 Ml Syringe SUB-Q 30 mg Q12HR DELBERT Administration Fluoxetine HCl 40 mg 06/02/21 09:00 06/03/21 08:17 Fluoxetine Hcl 20 Mg Capsule PO 40 mg DAILY DELBERT Administration Hydrochlorothiazide 12.5 mg 06/03/21 11:00 06/03/21 12:57 Hydrochlorothiazide 12.5 Mg Capsule PO 12.5 mg DAILY DELBERT Administration Ibuprofen 800 mg in 200 mls @ 400 mls/hr 06/01/21 15:00 06/04/21 03:41 Caldolor 800 Mg/200 Ml IVPB Infused Q6H DELBERT Infusion Cefazolin Sodium 1 gm in 50 mls @ 100 mls/hr 06/02/21 14:50 06/04/21 05:50 Ancef 1 Gm/D5w 50 Ml Pm IVPB Infused Q8HR DELBERT Infusion Potassium Chloride/Dextrose/Sod Cl 1,000 mls @ 80 mls/hr 06/03/21 11:00 06/04/21 00:02 Kcl 40 Meq/D5 1/2ns IV CONT 80 mls/hr .[id number] DELBERT Administration Losartan Potassium 100 mg 06/03/21 11:00 06/03/21 12:50 Losartan Potassium 100 Mg Tablet PO 100 mg DAILY DELBERT Administration Ondansetron HCl 4 mg 06/01/21 13:51 06/01/21 20:19 Ondansetron Inj 4 Mg/2 Ml Vial IV PUSH 4 mg Q4H PRN Administration Nausea And Vomiting Rosuvastatin Calcium 20 mg 06/03/21 11:00 06/03/21 13:41 Rosuvastatin 10 Mg Tablet PO 20 mg DAILY DELBERT Administration Labs Labs: Laborato
[2021-06-04] MEDS: FLUoxetine HCL 20 MG CAPSULE 40 MG PO (10:09)
[2021-06-04] MEDS: ROSUVASTATIN 10 MG TABLET 20 MG PO (10:09)
[2021-06-04] MEDS: ENOXAPARIN 30 MG/0.3 ML SYRINGE SUB-Q ×2 (10:09→21:01)
[2021-06-04] MEDS: LOSARTAN POTASSIUM 100 MG TABLET PO (10:10)
[2021-06-04 10:43] VITALS: BP 127/61; PULSE 82; RESP 18; TEMP 37; O2SAT 95
[2021-06-04] MEDS: hydroCHLOROthiazide 12.5 MG CAPSULE PO (12:11)
[2021-06-04 14:00] VITALS: BP 152/81; PULSE 72; RESP 18; TEMP 36.3; O2SAT 99
[2021-06-04] MEDS: POTASSIUM CHLORIDE 20 MEQ TABLET.ER PO (16:54)
[2021-06-04 20:00] VITALS: BP 153/75; PULSE 76; RESP 16; TEMP 36.9; O2SAT 97
[2021-06-05] VITALS: BP 129/58; PULSE 78; RESP 16; TEMP 36.9; O2SAT 94
[2021-06-05] MEDS: IBUPROFEN IV 800 MG/200 ML 800 MG/200 ML BAG 400 MG IVPB (03:15)
[2021-06-05 04:00] VITALS: BP 127/88; PULSE 76; RESP 18; TEMP 36.6; O2SAT 94
[2021-06-05 08:09] LABS: Hematocrit 31.2 % (37.0-47.0); Hemoglobin 9.8 g/dL (12.0-15.0); Mean Corpuscular HGB Conc 31.4 g/dl (32-36); Mean Corpuscular Hemoglobin 28.4 pg (26-34); Mean Corpuscular Volume 90.4 fl (80-100); Mean Platelet Volume 9.2 fl (7.4-10.4); Platelet Count Result 267 k/mm3 (150-375); Red Blood Count 3.45 M/mm3 (4.2-5.4); Red Cell Distribution Width 14.5 % (11.5-14.5); White Blood Count 8.2 K/mm3 (4.5-10.0)
[2021-06-05 08:10] VITALS: BP 142/64; PULSE 72; RESP 16; TEMP 36.8; O2SAT 97
[2021-06-05 08:18] LABS: Anion Gap 6 mmol/L (8-16); Blood Urea Nitrogen 10 mg/dL (7-17); Calcium 8.4 mg/dL (8.4-10.2); Carbon Dioxide 26 mmol/L (22-30); Chloride 106 mmol/L (98-107); Estimated CRCL calculation 77 ml/min; Estimated Glomerular Filt Rate > 60; Glucose 82 mg/dL (65-110); Potassium 3.8 mmol/L (3.4-5.0); Sodium 138 mmol/L (137-145)
--- NOTE | 2021-06-05 09:43 | PM.PNGS ---
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 Tolerating liquids well. Will advance to low fiber diet today. Increase ambulation. Change analgesics to oral ibuprofen. Possibly home tomorrow if continues to do well. (2) Esophageal laceration: Code(s): K22.8 - Other specified diseases of esophagus Status: Acute Assessment and Plan: No leak on esophagram. Appears to be healing nicely. White blood cell count normal today. Continue IV antibiotics another day. Subjective Subjective Date/Time Seen: 06/05/21 09:43 Post Op day: 4 Patient reports: feels better, pain is less, tolerating liquids well and bowel movement ( several) Exam GI: Inspection: abdominal wall ecchymosis, non-distended and incision ( incisions dry and healing well.) GI Palp: Yes Soft to palpation, Yes Tenderness to palpation present (GI) ( Minimal tenderness) and No Palpable mass present Auscultation: normal bowel sounds Objective Data Vital Signs Vital Signs: Vital Signs - 24 hr 06/04/21 10:43 06/04/21 14:00 06/04/21 20:00 Temperature 37.0 C 36.3 C L 36.9 C Pulse Rate 82 72 76 Respiratory Rate 18 18 16 Blood Pressure 127/61 152/81 H 153/75 H Pulse Oximetry 95 99 97 06/05/21 00:00 06/05/21 04:00 06/05/21 08:10 Temperature 36.9 C 36.6 C 36.8 C Pulse Rate 78 76 72 Respiratory Rate 16 18 16 Blood Pressure 129/58 L 127/88 142/64 H Pulse Oximetry 94 94 97 Intake/Output Intake/Output: Intake & Output 06/02/21 06/03/21 06/04/21 06/05/21 23:59 23:59 23:59 23:59 Intake Total 3551 1950 3670 500 Output Total 1850 1400 1720 1200 Balance 4111 668 9494 -700 Meds/Results Medications: Active Medications Generic Name Dose Route Start Last Admin Trade Name Freq PRN Reason Stop Dose Admin Acetaminophen 1,000 mg 06/05/21 06:58 Acetaminophen 500 Mg Tablet PO Q6H PRN Pain Rated 5 or Less Acetaminophen 500 mg 06/05/21 09:40 Acetaminophen 500 Mg Tablet PO Q6H PRN Mild Pain (1-3) or Fever Enoxaparin Sodium 30 mg 06/01/21 21:00 06/04/21 21:01 Enoxaparin 30 Mg/0.3 Ml Syringe SUB-Q 30 mg Q12HR DELBERT Administration Fentanyl Citrate 25 mcg 06/05/21 09:40 Fentanyl Citrate Inj (*Crx) 100 Mcg/2 Ml Vial IV PUSH Q2H PRN Pain Rated 7-10 Fluoxetine HCl 40 mg 06/02/21 09:00 06/04/21 10:09 Fluoxetine Hcl 20 Mg Capsule PO 40 mg DAILY DELBERT Administration Hydrochlorothiazide 12.5 mg 06/03/21 11:00 06/04/21 12:11 Hydrochlorothiazide 12.5 Mg Capsule PO 12.5 mg DAILY DELBERT Administration Cefazolin Sodium 1 gm in 50 mls @ 100 mls/hr 06/02/21 14:50 06/05/21 06:40 Ancef 1 Gm/D5w 50 Ml Pm IVPB Infused Q8HR DELBERT Infusion Ibuprofen 800 mg in 200 mls @ 400 mls/hr 06/05/21 06:58 Caldolor 800 Mg/200 Ml IVPB Q6H PRN Pain Rated 6 or Greater Ibuprofen 600 mg 06/05/21 09:40 Ibuprofen 600 Mg Tablet PO Q6H PRN Pain Rated 4-6 Losartan Potassium 100 mg 06/03/21 11:00 06/04/21 10:10 Losartan Potassium 100 Mg Tablet PO 100 mg DAILY DELBERT Administration Ondansetron HCl 4 mg 06/01/21 13:51 06/01/21 20:19 Ondansetron Inj 4 Mg/2 Ml Vial IV PUSH 4 mg Q4H PRN Administration Nausea And Vomiting Potassium Chloride 20 meq 06/04/21 17:00 06/04/21 16:54 Potassium Chloride 20 Meq Tablet.Er PO 20 meq BIDWM DELBERT Administration Rosuvastatin Calcium 20 mg 06/03/21 11:00 06/04/21 10:09 Rosuvastatin 10 Mg Tablet PO 20 mg DAILY DELBERT Administration Radiology Results: ITS Impressions Esophagus X-Ray 06/04/21 15:42 IMPRESSION: 1. No esophageal leak identified. Labs Labs: Laboratory Results - last 24 hr 06/05/21 06/05/21 07:26 07:26 WBC 8.2 RBC 3.45 L Hgb 9.8 L Hct 31.2 L MC
[2021-06-05] MEDS: LOSARTAN POTASSIUM 100 MG TABLET PO (09:47)
[2021-06-05] MEDS: FLUoxetine HCL 20 MG CAPSULE 40 MG PO (09:47)
[2021-06-05] MEDS: hydroCHLOROthiazide 12.5 MG CAPSULE PO (09:47)
[2021-06-05] MEDS: ENOXAPARIN 30 MG/0.3 ML SYRINGE SUB-Q ×2 (09:47→20:18)
[2021-06-05] MEDS: ROSUVASTATIN 10 MG TABLET 20 MG PO (09:47)
[2021-06-05] MEDS: POTASSIUM CHLORIDE 20 MEQ TABLET.ER PO ×2 (09:47→16:21)
[2021-06-05] MEDS: ACETAMINOPHEN 500 MG TABLET 1000 MG PO (09:48)
[2021-06-05 12:30] VITALS: BP 150/76; PULSE 81; RESP 16; TEMP 36.9; O2SAT 97
[2021-06-05] MEDS: IBUPROFEN 600 MG TABLET PO ×2 (13:05→20:17)
[2021-06-05 16:15] VITALS: BP 147/90; PULSE 70; RESP 16; TEMP 37; O2SAT 98
[2021-06-05] MEDS: ACETAMINOPHEN 500 MG TABLET PO ×2 (16:19→23:00)
[2021-06-05 22:00] VITALS: BP 141/73; PULSE 72; RESP 18; TEMP 36.4; O2SAT 96
[2021-06-06] VITALS: BP 140/75; PULSE 79; RESP 16; TEMP 36.7; O2SAT 95
[2021-06-06 04:00] VITALS: BP 138/68; PULSE 70; RESP 18; TEMP 36.9; O2SAT 94
--- NOTE | 2021-06-06 08:43 | PM.DS ---
DS: Admitting Diagnosis Admitting Diagnosis Admitting Diagnosis: Paraesophageal hiatal hernia DS: Discharge Diagnosis Discharge Diagnosis (1) Paraesophageal hiatal hernia: Code(s): K44.9 - Diaphragmatic hernia without obstruction or gangrene Status: Chronic (2) Esophageal laceration: Code(s): K22.8 - Other specified diseases of esophagus Status: Acute (3) GERD (gastroesophageal reflux disease): Code(s): K21.9 - Gastro-esophageal reflux disease without esophagitis Status: Chronic DS: Summary Hospital Course Hospital Course: The patient was seen preoperatively in the office and prepared for surgery. She had a history of a very large hiatal hernia with obstructive symptoms consistent with paraesophageal hiatal hernia. She also had symptoms of reflux but these were pre well alleviated with oral acid reducing medication. She was taken to surgery on the day of admission, 06/01/2021 for repair of paraesophageal hiatal hernia and Sherrell fundoplication. This was attempted laparoscopically but towards the end of the procedure, it was noted there was a distal esophageal laceration. The procedure was converted to open surgery and the esophageal laceration was repaired. Fundoplication was performed open. Following surgery, the patient was kept NPO until approximately 72 hours following surgery. She was on IV antibiotics postoperatively. On postop day 3. , 06/04/2021 she underwent a water-soluble esophagram. This showed the fundoplication and stomach to be in good position and no evidence of an esophageal leak. She was started on liquids and her diet was gradually advanced. She was taking only ibuprofen for pain and comfortable on solid food. She is discharged today in good condition on regular diet with plans for follow-up with Dr. perez on 06/09/2021 this week. Status at Discharge Overall status at discharge: patient is progressing back to baseline Time Spent with Patient Time attestation: Total time spent providing and/or coordinating discharge services: Discharge Plan Discharge Attending physician on discharge: Tima Perez Discharging Clinician: Tima Perez Anticipated Discharge Date/Time: 06/06/21 08:46 Patient Disposition: Home, Self-Care Activity: may shower, no straining and as tolerated Diet: as tolerated and regular Wound Care Instructions: keep dressing dry, remove dressing to shower and change dressing daily Discharge Instructions: Ambulate 3-4 x per day and as tolerated. No lifting over 15-20lbs. May bathe or shower. Stairs are OK. May drive a car in 3 days. Remove any dressings before shower and replace after. Patient Instructions: Antibiotic Form Stand Alone Forms: General Discharge Information Follow-up/Referrals: Tima Perez MD [Physician] - 06/09/21 ( Call Dr. alejo office for appointment on morning.) Discharge Medications: New amoxicillin-pot clavulanate [Augmentin] 875-125 mg tablet 1 tablet PO Q12H Qty: 4 RF: 0 Continued diclofenac sodium 75 mg tablet,delayed release (DR/EC) 75 mg PO DAILY RF: 0 losartan 100 mg tablet 100 mg PO DAILY RF: 0 fluoxetine [Prozac] 20 mg capsule 40 mg PO DAILY RF: 0 rosuvastatin 20 mg tablet 20 mg PO DAILY RF: 0 hydrochlorothiazide 12.5 mg tablet 12.5 mg PO DAILY RF: 0 Discontinued pantoprazole 40 mg tablet,delayed release (DR/EC) 40 mg PO DAILY RF: 0 Date of admission: 06/01/21 13:51 Primary Care Provider: Juany,Colleen Admitting Provider: Tima Perez Attending physician on admission: Tima Perez Condition: Improved
[2021-06-06] MEDS: ENOXAPARIN 30 MG/0.3 ML SYRINGE SUB-Q (09:03)
[2021-06-06] MEDS: LOSARTAN POTASSIUM 100 MG TABLET PO (09:03)
[2021-06-06] MEDS: FLUoxetine HCL 20 MG CAPSULE 40 MG PO (09:03)
[2021-06-06] MEDS: ROSUVASTATIN 10 MG TABLET 20 MG PO (09:03)
[2021-06-06] MEDS: hydroCHLOROthiazide 12.5 MG CAPSULE PO (09:03)
[2021-06-06] MEDS: POTASSIUM CHLORIDE 20 MEQ TABLET.ER PO (09:03)
[2021-06-06 10:00] VITALS: BP 142/77; PULSE 72; RESP 18; TEMP 36.4; O2SAT 97
== END 2021-06-06 11:47 | disposition home or self-care (01) | DRG 328 ==
LOC: ANH2MED 14:02
PROVIDERS: Admitting Provider Surgery; PCP Physician Assistant; Visit Provider Surgery
PROC: 0DV44ZZ Restriction of Esophagogastric Junction, Percutaneous Endoscopic Approach (ICD-10-PCS; CPT 43281; principal; 2021-06-01 07:30)
DX: K44.9 Diaphragmatic hernia without obstruction or gangrene (principal); K22.8 Other specified diseases of esophagus; Z53.31 Laparoscopic surgical procedure converted to open procedure; K21.9 Gastro-esophageal reflux disease without esophagitis; F41.9 Anxiety disorder, unspecified; F32.9 Major depressive disorder, single episode, unspecified; E78.5 Hyperlipidemia, unspecified; I10 Essential (primary) hypertension; R13.10 Dysphagia, unspecified; E66.9 Obesity, unspecified; Z68.31 Body mass index [BMI] 31.0-31.9, adult; Z90.710 Acquired absence of both cervix and uterus; Z87.891 Personal history of nicotine dependence
CPT/HCPCS: 36415; 74220; 80048; 85027; A9270; C1713; J0131; J0690; J1100; J1170; J1650; J1741; J2250; J2270; J2405; J2704; J2710; J3010; J3480; J7120

== ENCOUNTER 2021-08-15 08:05 | Outpatient (CLI) | payer OTHER, SELFPAY ==
--- NOTE | ~2021-08-15 | CT_ITS ---
EXAMINATION: CT abdomen wo con EXAM DATE: 08/15/2021 08:25 INDICATION: R11.2 - Nausea with vomiting, unspecified. TECHNIQUE: Spiral CT of the abdomen was performed without contrast. Axial, coronal and sagittal fouzia ges of the abdomen were reviewed. The dose-length product (DLP) for this examination was 298.79 mGy- cm. The exposure was tailored according to patient size (auto mA exposure control), and iterative re construction (ASIR) was used as additional dose reduction technique. There is no prior study for com jhon. FINDINGS: There are bilateral low-density adrenal gland lesions consistent with adenomas, measuring u p to 2 cm. Liver, spleen, pancreas are unremarkable. Gallbladder is unremarkable. No biliary obstr uction. There is a 3 mm right inferior calyceal stone. No hydronephrosis. There is no retroperiton eal lymphadenopathy. No evidence of prior midline laparotomy. There is mild scattered colonic diverticulosis. There is no adjacent inflammatory change to suggest diverticulitis. Possible surgical changes of Sherrell fundoplication, with this bulging partly through the hiatus. There is expected amount of colonic stool. No free intraperitoneal gas. The heart is normal in size. There are no pericardial or pleural effusions. The lung bases are unremarkable. T here are no osteoblastic or osteolytic lesions identified. IMPRESSION: 1. Probable changes of Sherrell fundoplication, with mild bulging into the gastroesophageal hiatus. 2. Right nephrolithiasis. 3. Mild colonic diverticulosis. 4. No acute findings. Reviewed, dictated and finalized at location A. IMPRESSION: 1. Probable changes of Sherrell fundoplication, with mild bulging into the gastr oesophageal hiatus. 2. Right nephrolithiasis. 3. Mild colonic diverticulosis. 4. No acute findings.
== END 2021-08-15 08:06 | disposition home or self-care (01) ==
PROVIDERS: PCP Physician Assistant; Visit Provider Surgery
DX: R11.2 Nausea with vomiting, unspecified (principal); Z98.890 Other specified postprocedural states; N20.0 Calculus of kidney; K57.90 Diverticulosis of intestine, part unspecified, without perforation or abscess without bleeding
CPT/HCPCS: 74150

== ENCOUNTER 2022-05-18 23:10 | Outpatient (CLI) | payer OTHER, SELFPAY ==
[2022-05-18 23:36] LABS: Basophils Absolute Auto 0.1 K/mm3 (0.0-0.1); Basophils Percent Auto 0.7 % (0.2-1.2); Eosinophils Absolute Auto 0.1 K/mm3 (0-0.3); Eosinophils Percent Auto 1.4 % (0-4.4); Hematocrit 40.7 % (37.0-47.0); Hemoglobin 12.7 g/dL (12.0-15.0); Immature Granulocyte Absolute 0.03 K/mm3 (0.00-0.031); Immature Granulocyte Percent A 0.4 % (0-0.5); Lymphocytes Absolute Auto 1.78 K/mm3 (0.9-3.2); Lymphocytes Percent Auto 21.2 % (18.3-44.2); Mean Corpuscular HGB Conc 31.2 g/dl (32-36); Mean Corpuscular Hemoglobin 28.5 pg (26-34); Mean Corpuscular Volume 91.5 fl (80-100); Monocytes Absolute Auto 0.8 K/mm3 (0.1-0.6); Monocytes Percent Auto 9.6 % (2.6-8.5); Neutrophils Absolute Auto 5.6 K/mm3 (1.3-6.7); Neutrophils Percent Auto 66.7 % (45.5-73.1); Platelet Count Result 324 k/mm3 (150-375); Red Blood Count 4.45 M/mm3 (4.2-5.4); Red Cell Distribution Width 14.8 % (11.5-14.5); White Blood Count 8.4 K/mm3 (4.5-10.0)
[2022-05-18 23:46] LABS: Alanine Aminotransferase 21 U/L (6-35); Albumin Level 5.1 g/dL (3.5-5.1); Alkaline Phosphatase 84 U/L (38-126); Anion Gap 10 mmol/L (8-16); Aspartate Amino Transferase 28 U/L (14-36); Bilirubin,Total 0.4 mg/dL (0.2-1.3); Blood Urea Nitrogen 33 mg/dL (7-17); Calcium 9.2 mg/dL (8.4-10.2); Carbon Dioxide 27 mmol/L (22-30); Chloride 103 mmol/L (98-107); Cholesterol 229 mg/dL (0-200); Estimated Glomerular Filt Rate 56; Glucose 109 mg/dL (65-110); HDL Direct 72 mg/dL; Potassium 3.6 mmol/L (3.4-5.0); Sodium 140 mmol/L (137-145); Triglycerides 105 mg/dL (<150)
[2022-05-18 23:47] LABS: Hemoglobin A1C 5.7 % (<5.7)
[2022-05-18 23:48] LABS: Appearance Urine Clear (Clear); Bilirubin Urine Negative (Negative); Blood Urine 1+ (Negative); Color Urine Yellow (Yellow); Glucose Urine UA Negative (Negative); Ketones Urine Negative (Negative); Leukocyte Esterase Ur 1+ LEU/UL (Negative); Nitrate Urine Positive (Negative); Protein Urine Negative (Negative); Specific Grav Ur 1.025 (1.001-1.035); Urobilinogen Urine 0.2 mg/dL (<2.0)
[2022-05-18 23:54] LABS: Bacteria Urine 3+ /hpf; Mucus Urine Rare /lpf; Squamous Epithelial Cell Urine Few /hpf (Few); WBC Urine 16-20 /hpf
[2022-05-18 23:57] LABS: LDL Cholesterol Direct 99 mg/dL
[2022-05-19 00:09] LABS: Add Urine Microscopic? YES
[2022-05-19 00:29] LABS: Thyroid Stimulating Hormone Reflex 0.685 uIU/mL (0.465-4.68)
== END 2022-05-18 23:11 | disposition home or self-care (01) ==
LOC: ANHOBOP 23:14
PROVIDERS: PCP Physician Assistant; Visit Provider Physician Assistant
DX: E78.5 Hyperlipidemia, unspecified (principal); Z79.899 Other long term (current) drug therapy; Z13.1 Encounter for screening for diabetes mellitus
CPT/HCPCS: 36415; 80053; 80061; 81001; 83036; 84443; 85025; 87077; 87086; 87186

== ENCOUNTER 2022-08-18 14:06 | Outpatient (CLI) | payer OTHER, SELFPAY ==
--- NOTE | 2022-08-18 14:55 | ECG_ITS ---
Measurements Intervals [place] Rate: 58 P: 34 NV: 160 QRS: 16 QRSD: 76 T: 30 QT: 414 QTc: 410 Interpretive Statements SINUS BRADYCARDIA POSSIBLE LEFT ATRIAL ENLARGEMENT BORDERLINE R WAVE PROGRESSION, ANTERIOR LEADS BORDERLINE ST-T WAVE ABNORMALITY- INFERIOR LEADS BASELINE ARTIFACT- I, II, III, AVR, AVL, AVF, V3-V6 BORDERLINE ECG COMPARED TO ECG 05/28/2021 07:21:36 HEART RATE HAS DECREASED BORDERLINE ST-T WAVE ABNORMALITY- INFERIOR LEADS NOW PRESENT Electronically Signed On 08-18-2022 16:45:18 CDT by Benjamin Allen D.O.
[2022-08-18 15:54] LABS: Basophils Absolute Auto 0.1 K/mm3 (0.0-0.1); Basophils Percent Auto 0.6 % (0.2-1.2); Eosinophils Absolute Auto 0.5 K/mm3 (0-0.3); Eosinophils Percent Auto 6.1 % (0-4.4); Hematocrit 39.5 % (37.0-47.0); Hemoglobin 12.4 g/dL (12.0-15.0); Immature Granulocyte Absolute 0.04 K/mm3 (0.00-0.031); Immature Granulocyte Percent A 0.5 % (0-0.5); Lymphocytes Absolute Auto 1.49 K/mm3 (0.9-3.2); Lymphocytes Percent Auto 17.1 % (18.3-44.2); Mean Corpuscular HGB Conc 31.4 g/dl (32-36); Mean Corpuscular Hemoglobin 29.2 pg (26-34); Mean Corpuscular Volume 92.9 fl (80-100); Mean Platelet Volume 9.4 fl (7.4-10.4); Monocytes Absolute Auto 0.9 K/mm3 (0.1-0.6); Monocytes Percent Auto 10.8 % (2.6-8.5); Neutrophils Absolute Auto 5.7 K/mm3 (1.3-6.7); Neutrophils Percent Auto 64.9 % (45.5-73.1); Platelet Count Result 306 k/mm3 (150-375); Red Blood Count 4.25 M/mm3 (4.2-5.4); Red Cell Distribution Width 14.5 % (11.5-14.5); White Blood Count 8.7 K/mm3 (4.5-10.0)
[2022-08-18 16:05] LABS: Partial Thromboplastin Time 27.9 SECONDS (22.3-36.8)
[2022-08-18 16:07] LABS: Alanine Aminotransferase 29 U/L (6-35); Albumin Level 4.3 g/dL (3.5-5.1); Alkaline Phosphatase 73 U/L (38-126); Anion Gap 13 mmol/L (8-16); Aspartate Amino Transferase 26 U/L (14-36); Bilirubin,Total 0.4 mg/dL (0.2-1.3); Blood Urea Nitrogen 22 mg/dL (7-17); Calcium 8.7 mg/dL (8.4-10.2); Carbon Dioxide 26 mmol/L (22-30); Chloride 101 mmol/L (98-107); Estimated Glomerular Filt Rate > 60; Glucose 95 mg/dL (65-110); Potassium 4.2 mmol/L (3.4-5.0); Sodium 140 mmol/L (137-145)
== END 2022-08-18 14:07 | disposition home or self-care (01) ==
LOC: ANHSURGERY 14:15
PROVIDERS: PCP Physician Assistant; Visit Provider Urology
DX: Z01.818 Encounter for other preprocedural examination (principal); I10 Essential (primary) hypertension; N81.9 Female genital prolapse, unspecified; R94.31 Abnormal electrocardiogram [ECG] [EKG]
CPT/HCPCS: 36415; 80053; 85025; 85610; 85730; 86850; 86900; 86901; 87086; 87088; 93005

== ENCOUNTER 2022-08-25 01:27 | Day surgery (SDC) | payer OTHER, SELFPAY ==
--- NOTE | 2022-08-18 14:18 | PC.NURSE ---
Report to the Outpatient Waiting Room, entrance under the green pavilion located off [facility], at time __6:15AM on date __08/25/22 . OR Time: __8:15AM . Time changes happen often and if your time is changed the preop area will call you the afternoon before. - You and your visitor will be asked to self-screen and do not enter if you have any COVID symptoms. - Only one visitor and NO children visitors are allowed at this time. - The patient visitor is requested to leave or wait in car when not with patient due to restrictions. - A mask is required within the hospital. Patients may have clear liquids (water, carbonated beverages, clear teas, apple juice) until 3 hours prior to surgery with a maximum of 20 ounces. - No food from midnight until time of surgery Take the following medications with a SIP of water the morning of surgery: ___NO MEDS Medications to discontinue per physician ____NONE Date to take last dose Please no make-up, nail [place], hairspray, perfume, deodorant, or body powder the day of surgery. No jewelry (including any body piercings) or valuables the day of surgery, leave them at home. Please take a shower or bath the night before, or the morning of, surgery with an antibacterial soap. Wear comfortable, loose fitting clothing. Children are encouraged to wear pajamas. - Jewelry must be removed prior to entering the operating room. Rings and piercings that are not removed may be cut off. - The hospital will not accept responsibility for valuables. - Please leave all valuables, including medications, at home the day of surgery. If you are going home after surgery, a licensed recycling collections driver must drive you home. - NO public transportation without another adult. - We recommend that an adult stay with you for 24 hours following discharge. - We also recommend that you do not drive, make important decision, drink alcoholic beverages, or take any drugs that were not prescribed by your health care provider for at least 24 hours after your discharge time. Follow any additional instructions given to you from your surgeon. If you or anyone in your household have experienced Covid symptoms in the past week, please notify your surgeon or the nurse liaison at the phone number below for possible testing. Telephone instructions given to __PATIENT and asked if any additional questions and then verbalized understanding. Patient advised to call surgeon office or pre surgery nurse liaison [phone] if any additional questions.
[2022-08-18 14:26] VITALS: BP 123/74; PULSE 60; RESP 14; TEMP 37.7; O2SAT 98; BMI 28.3
--- NOTE | 2022-08-20 08:53 | PM.IMHP ---
H&P: HPI History of Present Illness Date/Time: 08/20/22 08:53 Chief Complaint: POP Narrative: 62 you woman with prolpase and BHUMIKA on urodynamics. SHe does not have penitirative intercourse. Would like a minimally invasive surgical option Review of Systems Review of Systems: All systems reviewed & are unremarkable except as noted in HPI and below PMFSH Past Medical History Medical History Anxiety Depression GERD (gastroesophageal reflux disease) Hyperlipidemia Hypertension SVT (supraventricular tachycardia) Surgical History Surgical History H/O: hysterectomy History of Sherrell fundoplication Attempted Laparoscopic converted to open S/p bilateral carpal tunnel release S/P hemorrhoidectomy S/P trigger finger release Family History Family History Father Family history of premature coronary heart disease, Onset Age: 60 Patient's father is Mother Hypertension Family history of elevated blood lipids Unknown Heart disease Hypertension Nervous disorder Other Family history of osteoarthritis Social History Social History Smoking packs per day: 0.1 Smoking cigarettes per day: 2.0 Years smoked: 4 Smoking pack-years: 0.40 Smoking status: Former smoker Tobacco type: cigarettes Smoking end date: 05/19/90 Alcohol intake: current Substance use: never Substance use type: does not use Additional living arrangements comments: SPOUSE AND SON Gender identity (if verbalized by the patient): Female Sexual Orientation (if Verbalized by the Patient): Lesbian, Hyatt, or Homosexual Spiritual care concerns: No Meds Home Medications and Allergies Home Medications Medication Instructions Recorded Confirmed Type diclofenac sodium 75 mg 75 mg PO DAILY 10/25/19 08/18/22 History tablet,delayed release hydrochlorothiazide 12.5 mg tablet 12.5 mg PO DAILY 10/25/19 08/18/22 History losartan 100 mg tablet 100 mg PO DAILY 10/25/19 08/18/22 History rosuvastatin 20 mg tablet 20 mg PO DAILY 10/25/19 08/18/22 History famotidine 40 mg tablet 40 mg PO DAILY 08/18/22 08/18/22 History fluoxetine 60 mg tablet 60 mg PO DAILY 08/18/22 08/18/22 History Allergies Allergy/AdvReac Type Severity Reaction Status Date / Time nitrofurantoin AdvReac Nausea and Verified 08/18/22 14:21 [From Macrobid] Vomiting sulfamethoxazole AdvReac Nausea Verified 08/18/22 14:21 [From Bactrim] trimethoprim [From Bactrim] AdvReac Nausea Verified 08/18/22 14:21 Exam Narrative: apex prolapse at +5 + urethral mobility Assessment and Plan Assessment and plan (1) Prolapse of vaginal vault after hysterectomy: Code(s): N99.3 - Prolapse of vaginal vault after hysterectomy Status: Acute (2) BHUMIKA (stress urinary incontinence, female): Code(s): N39.3 - Stress incontinence (female) (male) Status: Acute Plan Plan for colpocleisis and urethral sling. We discussed risks, benefits, alternatives. We discussed minimally invasive options. we discussed conservative therapies. We discussed vaginal and abdominal procedures. She does not have penetrative intercourse. She would like a less invasive vaginal procedure. Will perform a colpocleisis. She has stress incontinence on urodynamics her therefore will do a stress incontinence procedure as well
--- NOTE | 2022-08-24 16:57 | WPDANESEPPF ---
Anes - Initial Pre Proc Eval Procedure: Operation Date: 08/25/22 08:15 Proposed Procedures p Colpocleisis, - Moshe Kebede MD s Urethral Sling - Moshe Kebede MD Date/Time: 08/24/22 16:57 Surgeon: Moshe Kebede MD Pre Op Diagnosis: vaginal vault prolapse Patient Data Age: 62 Gender: F Height: 1.55 m Weight: 67.9 kg Last Vital Signs Temp 37.7 C H 08/18/22 14:26 Pulse 60 08/18/22 14:26 Resp 14 08/18/22 14:26 BP 123/74 08/18/22 14:26 Pulse Ox 98 08/18/22 14:26 O2 Del Method Room Air 08/18/22 14:26 Allergies Allergy/AdvReac Type Severity Reaction Status Date / Time nitrofurantoin AdvReac Nausea and Verified 08/18/22 14:21 [From Macrobid] Vomiting sulfamethoxazole AdvReac Nausea Verified 08/18/22 14:21 [From Bactrim] trimethoprim [From Bactrim] AdvReac Nausea Verified 08/18/22 14:21 Home Medications Medication Instructions Recorded Confirmed Type diclofenac sodium 75 mg 75 mg PO DAILY 10/25/19 08/18/22 History tablet,delayed release hydrochlorothiazide 12.5 mg tablet 12.5 mg PO DAILY 10/25/19 08/18/22 History losartan 100 mg tablet 100 mg PO DAILY 10/25/19 08/18/22 History rosuvastatin 20 mg tablet 20 mg PO DAILY 10/25/19 08/18/22 History famotidine 40 mg tablet 40 mg PO DAILY 08/18/22 08/18/22 History fluoxetine 60 mg tablet 60 mg PO DAILY 08/18/22 08/18/22 History Patient hx anesthesia problems: none Family hx anesthesia problems: none Results Review: All pre-operative results and documents have been reviewed as part of the pre-operative evaluation. [facility] Past Medical History Medical History (Updated 08/25/22 @ 07:18 by Jt Masters DO) Anxiety Depression GERD (gastroesophageal reflux disease) Hyperlipidemia Hypertension Palpitations Surgical History Surgical History H/O: hysterectomy History of Sherrell fundoplication Attempted Laparoscopic converted to open S/p bilateral carpal tunnel release S/P hemorrhoidectomy S/P trigger finger release Family History Family History Father Family history of premature coronary heart disease, Onset Age: 60 Patient's father is Mother Hypertension Family history of elevated blood lipids Unknown Heart disease Hypertension Nervous disorder Other Family history of osteoarthritis Social History Social History Smoking packs per day: 0.15 Smoking cigarettes per day: 3.0 Years smoked: 5 Smoking pack-years: 0.75 Smoking status: Former smoker Tobacco type: cigarettes Smoking end date: 11/19/89 Alcohol intake: current Substance use: never Substance use type: does not use Living arrangements: with family Additional living arrangements comments: SPOUSE AND SON Gender identity (if verbalized by the patient): Female Sexual Orientation (if Verbalized by the Patient): Lesbian, Hyatt, or Homosexual Spiritual care concerns: No Anes - Eval Final PreProcedure Day of Procedure 08/24/22 16:57 Patient weight: overweight Heart: regular rate and rhythm Lungs: clear to auscultation Airway: Mallampati scale class II Neurological: alert and oriented Last oral intake: >/= 8 hours ASA classification: II Emergent: no Anesthetic plan: proceed Anesthesia type and monitoring: general LMA and standard monitoring Results Review: All pre-operative results and documents have been reviewed as part of the pre-operative evaluation. Informed Consent: The patient's anesthetic plan and its attendant risks and benefits were discussed with the patient/family/POA. Questions were solicited and answers provided to the satisfaction of the patient/family/POA.
[2022-08-25] VITALS (10 sets, daily range): BP systolic 97–144; BP diastolic 59–81; PULSE 66–86; RESP 12–16; TEMP 36.5–37.5; O2SAT 95–99
[2022-08-25] MEDS: LACTATED RINGERS 1,000 ML 30 ML IV CONT ×2 (06:50→11:08)
--- NOTE | 2022-08-25 07:10 | WPDHPUPDATE1 ---
History and Physical Update Update Date/Time: 08/25/22 07:10 History and Physical has been reviewed, including an updated exam of the patient. There are NO changes in the patient's condition. Risks, benefits, and alternatives have been discussed and questions answered. Patient agrees to proceed with procedure.
[2022-08-25] MEDS: ceFAZolin 2 GM/D5W 50 ML 2 GM/50 ML BAG IVPB (08:24)
[2022-08-25] MEDS: BUPIVACAINE/EPINEPHRINE 0.25% 50 ML VIAL INFILTRATE (08:47)
--- NOTE | 2022-08-25 10:17 | P.OP_ITS ---
Procedure Note - Detailed Date of Procedure 08/25/22 Pre-op Diagnosis vaginal vault prolapse Female perineal laxity Stress incontinence Post-op Diagnosis Same Procedure Performed Classic colpocleisis Perineorrhaphy Trans obturator urethral sling Surgeon Moshe Kebede MD Anesthesia General Indications This is a woman post surgery prolapse. She does not have penetrated intercourse. She was offered various options including observation, Kegel exercises, pessary, surgery. She would like a surgical approach. She was offered a colpopexy as well as a vaginal procedure. She did not want abdominal procedure. Penetrated intercourse is not a concern for her so she opted for a colpocleisis. She understands risks of bleeding, infection, damage surrounding organs, damage to the bowel or urinary tract, fistula formation, recurrent prolapse, postoperative voiding dysfunction including incontinence and ret ention, need for ancillary procedures, inability to have penetrative intercourse. She agreed to proceed. Findings Significant vaginal vault prolapse. Urethral hypermobility Description of Procedure She was correctly identified. Informed consent obtained. From the operating room. She was given general anesthesia. She was placed in dorsal lithotomy position. She was prepped and draped sterile fashion. Time-out performed. I placed Torres catheter. I placed a [place] retractor. I grafts the vaginal wall prolapse. It was well beyond the introitus. I rhys 2 rectangle areas on the anterior and posterior vaginal wall. I anesthetized the posterior vaginal wall. I removed the mucosa off the posterior vaginal wall taking great care not to injure the peritoneum or injure any underlying organs. I then did the same on the anterior vaginal wall. I then performed a classic colpocleisis using pursestring sutures to completely reduce the prolapse. There is no sign of any underlying bowel injury. I closed only the perivaginal fascial tissues. I then completed the colpocleisis by close the mucosa with interrupted horizontal mattress sutures. I then turned my attention towards urethral sling. I anesthetized the anterior vaginal wall over the mid urethra. I anesthetized the incision on the inner thigh and made those incisions. I made a midline vaginal incision. I dissected out laterally taking great care not to injure the urethra vaginal wall. I then passed the helical trocars 1st on the left than on the right from the thigh incision towards the vaginal incision. Sling was connected to trocars and brought out through the thigh incision. I tensioned the sling appropriately. I cut new plastic sheaths. I then closed the incision with 2-0 Vicryl. I performed cystoscopy. She had mild trabeculations. No surgical artifact in the bladder or urethra. No sign of any bladder urethral injury. Both ureters were seen to excrete clear yellow urine. I cut the excess sling material. Closed the incisions with glue. I then turned my attention to the perineorrhaphy. I anesthetized a nani- shaped area of skin on the perineum. I removed this area of skin. I then performed a perineorrhaphy using 0 Vicryl sutures. This significantly narrow the vaginal introitus. This was done intentionally to complete the colpocleisis. I then closed the skin with a 2-0 Vicryl suture. There was excellent prolapse support and perineal support. Rectal exam showed no abnorm alities. She was awakened and transferred to PACU in stable condition. Estimated Blood Loss 50 Complications No immediate complications Condition Stable Disposition PACU
--- NOTE | 2022-08-25 12:00 | SUR.PHASEII ---
1200 - family member updated. waiting in parking lot.
--- NOTE | 2022-08-25 13:09 | SUR.PHASEII ---
1245 - pt voided. blood clots present.
== END 2022-08-25 13:05 | disposition home or self-care (01) ==
PROVIDERS: PCP Physician Assistant; Visit Provider Urology
PROC: (CPT 57120; principal; 2022-08-25 08:15)
PROC: (CPT 57260; 2022-08-25 08:15)
DX: N99.3 Prolapse of vaginal vault after hysterectomy (principal); N39.3 Stress incontinence (female) (male); K21.9 Gastro-esophageal reflux disease without esophagitis; E78.5 Hyperlipidemia, unspecified; I10 Essential (primary) hypertension; Z87.891 Personal history of nicotine dependence
CPT/HCPCS: 57260; 57288; A9270; C1771; J0690; J1100; J1885; J2250; J2405; J2704; J3010; J7030; J7120; Q9968

== ENCOUNTER 2022-11-17 10:59 | Outpatient (CLI) | payer OTHER, SELFPAY ==
--- NOTE | ~2022-11-17 | MM_ITS ---
EXAMINATION: MM screening [place] BI w gage HISTORY: Screening mammogram TECHNIQUE: Craniocaudal and mediolateral oblique 3-D tomosynthesis images were obtained and synthetic 2-D images were generated. CAD analysis was submitted and interpreted. COMPARISON: 11/25/2019 diagnostic right mammogram 10/04/2019, 11/16/2017 bilateral screening mammogram examinations BREAST PARENCHYMAL COMPOSITION: There are scattered areas of fibroglandular density. FINDINGS: There is no evidence of suspicious mass, calcification, or architectural distortion to sugg est malignancy in either breast. There has been no suspicious interval change. IMPRESSION: 1. No mammographic evidence of malignancy. 2. Recommend routine screening mammography in one year. BI-RADS Category 1: Negative Reviewed, dictated and finalized at location A. IFIED PERSONAL CHEF
== END 2022-11-17 11:00 | disposition home or self-care (01) ==
LOC: ANHIMG 11:01
PROVIDERS: PCP Physician Assistant; Visit Provider Physician Assistant
DX: Z12.31 Encounter for screening mammogram for malignant neoplasm of breast (principal)
CPT/HCPCS: 77063; 77067

== ENCOUNTER 2023-03-01 13:53 | Outpatient (CLI) | payer OTHER, SELFPAY ==
[2023-03-01 14:43] LABS: Basophils Percent Auto 0.3 % (0.2-1.2); Eosinophils Absolute Auto 0.2 K/mm3 (0-0.3); Eosinophils Percent Auto 2.3 % (0-4.4); Hematocrit 38.6 % (37.0-47.0); Hemoglobin 12.4 g/dL (12.0-15.0); Immature Granulocyte Absolute 0.02 K/mm3 (0.00-0.031); Immature Granulocyte Percent A 0.3 % (0-0.5); Lymphocytes Absolute Auto 1.16 K/mm3 (0.9-3.2); Lymphocytes Percent Auto 17.8 % (18.3-44.2); Mean Corpuscular HGB Conc 32.1 g/dl (32-36); Mean Corpuscular Hemoglobin 28.8 pg (26-34); Mean Corpuscular Volume 89.8 fl (80-100); Mean Platelet Volume 9.4 fl (7.4-10.4); Monocytes Absolute Auto 0.8 K/mm3 (0.1-0.6); Neutrophils Absolute Auto 4.4 K/mm3 (1.3-6.7); Neutrophils Percent Auto 67.3 % (45.5-73.1); Platelet Count Result 288 k/mm3 (150-375); Red Cell Distribution Width 15.5 % (11.5-14.5); White Blood Count 6.5 K/mm3 (4.5-10.0)
[2023-03-01 14:59] LABS: Alanine Aminotransferase 23 U/L (6-35); Alkaline Phosphatase 78 U/L (38-126); Anion Gap 7 mmol/L (8-16); Aspartate Amino Transferase 25 U/L (14-36); Bilirubin,Total 0.6 mg/dL (0.2-1.3); Blood Urea Nitrogen 20 mg/dL (7-17); Calcium 8.6 mg/dL (8.4-10.2); Carbon Dioxide 27 mmol/L (22-30); Chloride 106 mmol/L (98-107); Cholesterol 160 mg/dL (0-200); Estimated Glomerular Filt Rate > 60; Glucose 106 mg/dL (65-110); HDL Direct 68 mg/dL; Potassium 3.3 mmol/L (3.4-5.0); Sodium 140 mmol/L (137-145); Triglycerides 76 mg/dL (<150)
[2023-03-01 15:10] LABS: LDL Cholesterol Direct 66 mg/dL
[2023-03-01 15:16] LABS: Appearance Urine Cloudy (Clear); Bacteria Urine 1+ /hpf; Bilirubin Urine Negative (Negative); Blood Urine Trace (Negative); Color Urine Yellow (Yellow); Glucose Urine UA Negative (Negative); Ketones Urine Negative (Negative); Leukocyte Esterase Ur Trace LEU/UL (Negative); Nitrate Urine Negative (Negative); Non Pathogenic Casts 0-2; Protein Urine Negative (Negative); Specific Grav Ur 1.018 (1.001-1.035); Squamous Epithelial Cell Urine Many /hpf (Few); Urobilinogen Urine 0.2 mg/dL (<2.0); WBC Urine 0-5 /hpf
[2023-03-01 15:23] LABS: Add Urine Microscopic? YES
[2023-03-01 15:46] LABS: Thyroid Stimulating Hormone Reflex 0.466 uIU/mL (0.465-4.68)
[2023-03-01 19:50] LABS: Hemoglobin A1C 5.6 % (<5.7)
== END 2023-03-01 13:54 | disposition home or self-care (01) ==
LOC: ANHLAB 13:55
PROVIDERS: PCP Physician Assistant; Visit Provider Physician Assistant
DX: E78.5 Hyperlipidemia, unspecified (principal); Z79.899 Other long term (current) drug therapy; Z13.1 Encounter for screening for diabetes mellitus
CPT/HCPCS: 36415; 80053; 80061; 81001; 83036; 84443; 85025

== ENCOUNTER 2023-07-04 12:07 | Emergency (ER) | payer OTHER, SELFPAY ==
--- NOTE | ~2023-07-04 | XR_ITS ---
EXAMINATION: XR knee LT min 4V DATE: 07/04/2023 12:45 INDICATION: Left knee pain and swelling post fall TECHNIQUE: Anteroposterior, 2 oblique, sunrise and crosstable lateral views of the left knee were obt ained COMPARISON: None. FINDINGS: Alignment is normal. No fracture. Small marginal osteophytes consistent with at least mild osteoarth ritis at the medial and patellofemoral compartments. No joint effusion/layering lipohemarthrosis. Inf rapatellar subcutaneous soft tissue swelling anterior to the patellar tendon. IMPRESSION: 1. No left knee joint effusion or acute osseous abnormality. Reviewed, dictated and finalized at location A.
[2023-07-04 12:16] VITALS: BP 124/73; PULSE 66; RESP 20; TEMP 37.2; O2SAT 98
--- NOTE | 2023-07-04 12:49 | ED.LOWEXIN ---
HPI - Extremity Injury (Lower) General Chief Complaint: Extremity Injury, Lower Stated Complaint: Lt Knee Pain Due To Fall Source: patient and RN notes reviewed History of Present Illness HPI Narrative: 63 yo F presents to urgent care with left knee pain and swelling. Pt states she fell last night onto her left knee while at the movies. Pt states she had a rug burn pain afterwards but nothing more. Pt states she then was walking the dog when she thinks she might have hit it on something causing more pain. Pt presents with pain, swelling, and bruising over the left patella. Pt also has small area of bruising and abrasion to right knuckles of hand from fall last night but denies any significant pain. Denies any head injury, LOC, neck pain, or other complaints. Pt did take Motrin [employer]. Related Data Home Medications Medication Instructions Recorded Confirmed diclofenac sodium 75 mg 75 mg PO DAILY 10/25/19 07/04/23 tablet,delayed release hydrochlorothiazide 12.5 mg tablet 12.5 mg PO DAILY 10/25/19 07/04/23 losartan 100 mg tablet 100 mg PO DAILY 10/25/19 07/04/23 rosuvastatin 20 mg tablet 20 mg PO DAILY 10/25/19 07/04/23 fluoxetine 60 mg tablet 60 mg PO DAILY 08/18/22 07/04/23 pantoprazole 40 mg tablet,delayed 40 mg PO DAILY 07/04/23 07/04/23 release Allergies Allergy/AdvReac Type Severity Reaction Status Date / Time morphine AdvReac Nausea and Verified 07/04/23 12:08 Vomiting nitrofurantoin AdvReac Nausea and Verified 07/04/23 12:08 [From Macrobid] Vomiting sulfamethoxazole AdvReac Nausea Verified 07/04/23 12:08 [From Bactrim] trimethoprim [From Bactrim] AdvReac Nausea Verified 07/04/23 12:08 Review of Systems Review of Systems: CONSTITUTIONAL: Denies fever, chills, or sweats. EYES: Denies visual changes, redness, or discharge. ENT: Denies otalgia and sore throat CARDIOVASCULAR: Denies chest pain, palpitations, or edema. RESPIRATORY: Denies cough or dyspnea. GASTROINTESTINAL: Denies abdominal pain, nausea, vomiting, or diarrhea. GENITOURINARY: Denies dysuria or hematuria. SKIN: Denies rash or itching. MUSCULOSKELETAL: Left knee pain and swelling NEUROLOGIC: Denies headache, numbness, or weakness. Pertinent positives per HPI. [facility] Past Medical History Medical History (Updated 07/04/23 @ 12:57 by Cindy Montoya APRN) Anxiety Depression GERD (gastroesophageal reflux disease) Hyperlipidemia Hypertension Palpitations Surgical History Surgical History H/O: hysterectomy History of Sherrell fundoplication Attempted Laparoscopic converted to open S/p bilateral carpal tunnel release S/P hemorrhoidectomy S/P trigger finger release Family History Family History Father Family history of premature coronary heart disease, Onset Age: 60 Patient's father is Mother Hypertension Family history of elevated blood lipids Unknown Heart disease Hypertension Nervous disorder Other Family history of osteoarthritis Social History Social History Smoking packs per day: 0.1 Smoking cigarettes per day: 2.0 Years smoked: 4 Smoking pack-years: 0.40 Smoking status: Former smoker Tobacco type: cigarettes Smoking end date: 05/19/90 Alcohol intake: current Substance use: never Substance use type: does not use Living arrangements: with family Additional living arrangements comments: SPOUSE AND SON Gender identity (if verbalized by the patient): Female Sexual Orientation (if Verbalized by the Patient): Lesbian, Hyatt, or Homosexual Spiritual care concerns: No Comments At the time of my signature, I reviewed and agree with the nursing past medical, surgical, social, and family history. There is no relevant family history pertinent to the patient complaint. Exam
== END 2023-07-04 12:59 | disposition home or self-care (01) ==
PROVIDERS: Emergency Provider Nurse Practitioner Family; PCP Physician Assistant
DX: S80.02XA Contusion of left knee, initial encounter (principal); W19.XXXA Unspecified fall, initial encounter; F41.9 Anxiety disorder, unspecified; F32.A Depression, unspecified; K21.9 Gastro-esophageal reflux disease without esophagitis; E78.5 Hyperlipidemia, unspecified; I10 Essential (primary) hypertension; Z87.891 Personal history of nicotine dependence
CPT/HCPCS: 73564; 99213; G0463

== ENCOUNTER 2024-01-28 13:18 | Outpatient (CLI) | payer OTHER, SELFPAY ==
--- NOTE | ~2024-01-28 | XR_ITS ---
EXAMINATION: XR knee RT 3V DATE: 01/28/2024 13:44 INDICATION: Right knee pain. TECHNIQUE: 3 views of right knee including standing views were obtained. COMPARISON: None. FINDINGS: There is varus angulation at the knee. No fracture. There is severe osteoarthritis of media l compartment and mild osteoarthritis of lateral and patellofemoral compartments. No knee joint effus ion. IMPRESSION: 1. Severe right knee osteoarthritis. Reviewed, dictated and finalized at location A.
--- NOTE | ~2024-01-28 | XR_ITS ---
EXAMINATION: XR shoulder LT min 2V DATE: 01/28/2024 13:44 INDICATION: Left shoulder pain TECHNIQUE: AP internally and externally rotated, AP oblique externally rotated and transscapular Y vi ews of the left shoulder were obtained. COMPARISON: None FINDINGS: Normal alignment. No fracture.Mild glenohumeral osteoarthritis. Mild to moderate osteoarthritis at t he acromioclavicular joint. There is cystic change with thin sclerotic margins projecting over the le sser tuberosity. Soft tissues are unremarkable. Visualized portion of the left lung are clear. IMPRESSION: Mild left glenohumeral and mild to moderate acromioclavicular osteoarthritis. Reviewed, dictated and finalized at location B.
== END 2024-01-28 13:19 | disposition home or self-care (01) ==
LOC: ANHIMG 13:20
PROVIDERS: PCP Physician Assistant; Visit Provider Physician Assistant
DX: M17.11 Unilateral primary osteoarthritis, right knee (principal); M19.012 Primary osteoarthritis, left shoulder
CPT/HCPCS: 73030; 73562

== ENCOUNTER 2024-02-12 08:42 | Outpatient (CLI) | payer OTHER, SELFPAY ==
[2024-02-12 09:33] LABS: Basophils Percent Auto 0.6 % (0.2-1.2); Eosinophils Absolute Auto 0.2 K/mm3 (0-0.3); Eosinophils Percent Auto 2.7 % (0-4.4); Hematocrit 40.5 % (37.0-47.0); Hemoglobin 12.7 g/dL (12.0-15.0); Immature Granulocyte Absolute 0.03 K/mm3 (0.00-0.031); Immature Granulocyte Percent A 0.4 % (0-0.5); Lymphocytes Absolute Auto 1.32 K/mm3 (0.9-3.2); Lymphocytes Percent Auto 19.5 % (18.3-44.2); Mean Corpuscular HGB Conc 31.4 g/dl (32-36); Mean Corpuscular Hemoglobin 28.5 pg (26-34); Mean Corpuscular Volume 90.8 fl (80-100); Mean Platelet Volume 9.6 fl (7.4-10.4); Monocytes Absolute Auto 0.8 K/mm3 (0.1-0.6); Monocytes Percent Auto 12.1 % (2.6-8.5); Neutrophils Absolute Auto 4.4 K/mm3 (1.3-6.7); Neutrophils Percent Auto 64.7 % (45.5-73.1); Platelet Count Result 263 k/mm3 (150-375); Red Blood Count 4.46 M/mm3 (4.2-5.4); Red Cell Distribution Width 14.9 % (11.5-14.5); White Blood Count 6.8 K/mm3 (4.5-10.0)
[2024-02-12 09:44] LABS: Alanine Aminotransferase 21 U/L (6-35); Albumin Level 4.1 g/dL (3.5-5.1); Alkaline Phosphatase 94 U/L (38-126); Anion Gap 6 mmol/L (8-16); Aspartate Amino Transferase 25 U/L (14-36); Bilirubin,Total 0.7 mg/dL (0.2-1.3); Blood Urea Nitrogen 32 mg/dL (7-17); Calcium 8.9 mg/dL (8.4-10.2); Carbon Dioxide 25 mmol/L (22-30); Chloride 105 mmol/L (98-107); Cholesterol 182 mg/dL (0-200); Estimated Glomerular Filt Rate 56; Glucose 98 mg/dL (65-110); HDL Direct 80 mg/dL; Potassium 3.7 mmol/L (3.4-5.0); Sodium 136 mmol/L (137-145); Triglycerides 59 mg/dL (<150)
[2024-02-12 09:55] LABS: LDL Cholesterol Direct 83 mg/dL
[2024-02-12 10:41] LABS: Hemoglobin A1C 5.8 % (<5.7)
[2024-02-12 10:50] LABS: Free T4 Free Thyroxine 1.61 ng/mL (0.78-2.19)
== END 2024-02-12 08:43 | disposition home or self-care (01) ==
LOC: ANHLAB 08:44
PROVIDERS: PCP Physician Assistant; Visit Provider Physician Assistant
DX: E78.5 Hyperlipidemia, unspecified (principal); Z79.899 Other long term (current) drug therapy; Z13.1 Encounter for screening for diabetes mellitus
CPT/HCPCS: 36415; 80053; 80061; 82607; 82746; 83036; 84439; 84443; 85025

== ENCOUNTER 2024-07-23 09:57 | Outpatient (CLI) | payer OTHER, SELFPAY ==
--- NOTE | ~2024-07-23 | XR_ITS ---
Clinical Indication: Wheezing PA and lateral views of the chest: Comparison: 06/21/2012 Findings: The lungs are clear, without evidence of focal consolidation or pleural effusion. Cardiome diastinal silhouette is within normal limits. Bones and soft tissues are unremarkable. Impression: Normal chest. Reviewed, dictated and finalized at [facility]. Impression: Normal chest.
== END 2024-07-23 09:58 | disposition home or self-care (01) ==
PROVIDERS: PCP Physician Assistant; Visit Provider Physician Assistant
DX: R06.2 Wheezing (principal)
CPT/HCPCS: 71046

== ENCOUNTER 2024-09-03 15:33 | Outpatient (CLI) | payer OTHER, SELFPAY ==
--- NOTE | ~2024-09-03 | XR_ITS ---
3 VIEWS LUMBAR SPINE Ordering provider: Dilcia Harrington, PAJacey History: . LUMBAR RADICULOPATHY. CHRONIC PAIN, NKI . Comparison: June 09, 2020 FINDINGS: VERTEBRAL BODIES: Chronic compression fracture of L3 unchanged from previous examination. No visible fracture or subluxation. Severe bending of the coccyx. DISK SPACES: Degenerative disc disease at the level of L5-S1. SOFT TISSUES: Aortic atherosclerotic changes. IMPRESSION: No acute osseous abnormality lumbar spine. Old compression fracture of L3. No significant change from previous examination. Reviewed, dictated and finalized at location A.
--- NOTE | ~2024-09-03 | XR_ITS ---
XR hip LT min 2V Ordering provider: Dilcia Harrington, ERA History: . LUMBAR RADICULOPATHY;PAIN IN LEFT HIP JOINT, NKI . Comparison: May 24, 2016 FINDINGS: BONES: No acute fracture or dislocation. HIP JOINT SPACES: Left hip moderate osteoarthritic changes. SACROILIAC JOINT SPACES/LUMBAR SPINE: The sacroiliac joint spaces are normal. Mild degenerative gracia es of the visualized lower lumbar spine. PUBIC SYMPHYSIS: Normal. SOFT TISSUES: Normal. IMPRESSION: No acute osseous abnormality pelvis and left hip. Left hip moderate osteoarthritic changes. Reviewed, dictated and finalized at location A.
== END 2024-09-03 15:34 | disposition home or self-care (01) ==
LOC: ANHIMG 15:34
PROVIDERS: PCP Physician Assistant; Visit Provider Physician Assistant
DX: M54.16 Radiculopathy, lumbar region (principal); M16.12 Unilateral primary osteoarthritis, left hip
CPT/HCPCS: 72100; 73502

== ENCOUNTER 2024-10-09 08:25 | Outpatient (CLI) | payer OTHER, SELFPAY ==
--- NOTE | ~2024-10-09 | MR_ITS ---
MRI of the lumbar spine Clinical History: Radiculopathy Technique: Axial T2-weighted images, and sagittal T1-weighted, T2-weighted, and T2 fat-sat images wer e acquired. Findings: There is no acute fracture or subluxation of the lumbar spine. There is prominent Schmorl's node with probable mild compression deformity at the superior endplate region of L3. No suspicious o r acute bone marrow signal abnormality seen. At L1-L2, there is no disc bulge or herniation. There is mild facet hypertrophy. No spinal canal sten osis or neural foraminal narrowing. L2-L3, there is no significant disc bulge or herniation. There is moderate facet arthropathy. No cent ral canal stenosis or neural foraminal narrowing. At L3-L4, there is no disc bulge or herniation. There is moderate facet arthropathy. No central canal stenosis or neural foraminal narrowing. L4-L5, there is mild diffuse disc bulge with mild facet arthropathy. No central canal stenosis or alicia ral foraminal narrowing. At L5-S1, there is advanced degenerative distended with diffuse disc bulge and probable small superim posed disc extrusion, which may focally impinges the descending right S1-S2 level nerve root.. There is advanced facet arthropathy. No central canal stenosis. There is mild bilateral neural foraminal na rrowing. Paravertebral soft tissues are unremarkable. Impression: Mild degenerative spondylosis overall, as above. Small disc extrusion at L5-S1 which may focally impinge the descending right S1-S2 level nerve root. Reviewed, dictated and finalized at [facility]. [employer] Impression: Mild degenerative spondylosis overall, as above. Small disc extrusion at L5-S1 which may focally impinge the descending right S1 -S2 level nerve root.
== END 2024-10-09 08:26 | disposition home or self-care (01) ==
PROVIDERS: PCP Physician Assistant; Visit Provider Physician Assistant
DX: M47.817 Spondylosis without myelopathy or radiculopathy, lumbosacral region (principal); M51.27 Other intervertebral disc displacement, lumbosacral region
CPT/HCPCS: 72148

== ENCOUNTER 2025-03-25 09:36 | Outpatient (CLI) | payer MEDICARE, SELFPAY ==
--- NOTE | 2025-03-25 | EST_ITS ---
Patient Info Name: Rachel Raman Age: 65 years : 1960 Gender: Female Ht: 61 in Wt: 155 lbs BSA: 1.76 m2 HR: 51 bpm BP: 138 / 90 mmHg Exam Date: 03/25/2025 10:53 AM Exam Location: Echo Lab Patient Status: Outpatient Admit Date: 03/25/2025 Staff Ordering Physician: Juany, Dilcia GIRARD Attending Provider: JuanyDilcia PA-C Exercise Technologist: Miladis Wan RDCS Exercise Physician: Benjamin Allen DO Exam Type: CA stress sola w NM Study Info A regadenoson stress test was performed. Summary 1. 1. Negative lexiscan stress test for ischemic ST changes by ECG criteria. 2. 2. Stable hemodynamics throughout the test. 3. 3. Nuclear scan to follow and will be reported separately. Please correlate with it. 4. 4. Patient informed of the above results. Protocol: Lexiscan Stress ECG Details Stage: REST Duration (min): 1 min : 12 sec HR (bpm): 50 SBP (mmHg): 138 DBP (mmHg): 90 Stage: REST Duration (min): 9 min : 41 sec HR (bpm): 53 SBP (mmHg): 138 DBP (mmHg): 90 Stage: STAGE 1 Duration (min): 0 min : 59 sec HR (bpm): 76 SBP (mmHg): 131 DBP (mmHg): 73 Stage: RECOVERY Duration (min): 1 min : 0 sec HR (bpm): 79 SBP (mmHg): 131 DBP (mmHg): 73 Stage: RECOVERY Duration (min): 2 min : 0 sec HR (bpm): 77 SBP (mmHg): 131 DBP (mmHg): 73 Stage: RECOVERY Duration (min): 3 min : 0 sec HR (bpm): 75 SBP (mmHg): 139 DBP (mmHg): 75 Stage: RECOVERY Duration (min): 3 min : 9 sec HR (bpm): 74 SBP (mmHg): 139 DBP (mmHg): 75 Rest HR: 53 bpm Peak HR: 83 bpm Rest Sys BP: 138 mmHg Peak Sys BP: 139 mmHg Max Pred HR: 155 bpm % Max Pred HR: 54 % Target HR: 132 bpm Max RPP: 11,537 bpm*mmHg Termination Reason: Completed protocol Cardiac Symptoms: Shortness of breath Total Time: 1 min : 0 sec Rest Chavez BP: 90 mmHg Peak Chavez BP: 75 mmHg Total Dose: 0.4 mg Resting ECG Sinus bradycardia. Stress ECG No ST changes. Arrhythmias None. Report Signatures
--- NOTE | ~2025-03-25 | NM_ITS ---
EXAMINATION: NM sola stress w perfusion DATE: 03/25/2025 12:03 INDICATION: Abnormal stress test TECHNIQUE: Rest images were obtained following intravenous administration of 9.5 mCi Tc99m tetrofosmi n (Myoview). The patient was infused intravenously with Lexiscan (Regadenoson). Then, 30 mCi Tc99m te trofosmin (Myoview) was administered intravenously, and stress images were obtained. Data was reconst ructed into short axis and horizontal and vertical long axis SPECT images. Gated SPECT images were al so obtained. COMPARISON: None. FINDINGS: There is no definite reversible or fixed perfusion abnormality to suggest ischemia or infar ction. There is normal left ventricular chamber size, wall motion and ejection fraction. Left ventr icular ejection fraction measures 65%. IMPRESSION: 1. Normal myocardial perfusion at rest and during stress. 2. Left ventricular ejection fraction measuring 65%. Reviewed, dictated and finalized at location A.
--- OUTSIDE RECORDS SUMMARY | 2025-03-25 10:10 | XMS_ITS | Data Portability ---
Author Organization [facility] Address [address] [facility] [address] Assessment No assessment recorded. Plan of Treatment Reminders Order Date Submit Date Provider Last Modified By Organization Details Last Modified Time Details Appointments ANY 15 2024 11:00A M GUNNAR Lorenzo Not available Not available Not available Lab CBC w/ auto diff [address] [facility], [address] [place] [address], [id number], 03/11/2025 11:23:24 CMP, serum or plasma [address] [facility], [address] [place] [address], [id number], 03/11/2025 11:23:31 TSH + free T4, serum [address] [facility], [address] [place] [address], [id number], 03/11/2025 11:24:05 vitamin B12 + folate, serum or blood [address] [facility], [address] [place] [address], [id number], 03/11/2025 11:23:55 HbA1c (hemoglob in A1c), blood [address] [facility], [facility] [address], [address], 03/11/2025 11:23:45 lipid panel, serum [email or web address] [facility], [facility] [address] [place] [address], [id number], 03/11/2025 11:23:16 CBC w/ auto diff 2023 024 [facility], [address] [place] [address] [place] [address], [id number], 02/13/2024 16:04:46 CMP, serum or plasma 2023 024 [facility], [address] [place] [address] [place] [address], [address], 02/12/2024 12:41:49 vitamin B12 + folate, serum or blood 2023 024 [facility], [address] [place] [address] [place] [address], [id number], 02/13/2024 16:04:47 TSH + free T4, serum 2023 024 [facility], [address] [place] [address] [place] [address], [address], 02/12/2024 13:03:05 HbA1c (hemoglob in A1c), blood 2023 024 [facility], [address] [place] [address] [place] [address], [id number], 02/13/2024 16:04:47 lipid panel, serum 2023 024 [facility], [address] [place] [address] [place] [address], [id number], 02/12/2024 12:48:34 Referral None recorded. Procedures lexiscan cardiolit e stress test (PROC) - this is preop requireme nt for abnormal EKG. upcoming April JENNA. [address] (Cardiology & Emg), [address] [place] [address] [place] [address], [id number], 03/23/2025 23:27:28 Surgeries None recorded. Imaging MRI, lumbar spine, w/o contrast 2023 024 [facility] (Imaging), [address] [place] [address], [id number], 10/09/2024 16:40:30 XR, lumbosacr al spine 2023 024 [facility] (Imaging), [address] [place] [address], [phone], 09/04/2024 10:32:34 XR, hip, unilatera l, 2 or 3 view 2023 024 [facility] (Imaging), [address] [place] [address], [id number], 03/10/2025 12:29:16 MAMMO, screening , digital, bilateral 2023 024 [facility] (Imaging), [address] [place] [address], [id number], 03/20/2025 11:59:45 XR, chest, 2 view 2023 024 [facility] (Imaging), [address] [place] [address], [address], 07/23/2024 15:09:33 XR, shoulder, 2 or more view 2023 024 [facility] (Imaging), [address] [place] [address], [id number], 03/12/2024 12:45:27 XR, knee, 3 view 2023 024 [facility] (Imaging), [address] [place] [address], [phone], 03/12/2024 12:44:02 Medication Orders Medrol (Rolando) 4 mg tablets in a dose pack 2023 025 [facility][id number], [address] [facility], [place], [place], [id number], 11/26/2024 18:09:10 cyclobenz aprine 10 mg tablet 2023 025 [facility] #[id number], [address] [facility], [place], [place], [id number], 03/10/2025 12:18:58 buspirone 5 mg tablet 2023 [facility] #[id number], [address] [facility], [place], [place], [id number], 11/10/2024 18:16:49 prednison e 20 mg tablet 2023 [facility] #[id number], [address] [facility], [place], [place], [id number], 09/03/2024 16:00:54 Patient TargetsNo targets recorded. Patient Instructions Encounter Date Encounter Id Patient Instructions Last Modified By Organization Details Last Modified Time 07/23/2024 [id number] A healthy lifestyle: care instructions Not available 07/23/2024 10:39:53 09/03/2024 [id number] low back pain: exercises Not available 09/03/2024 16:20:38 03/10/2025 [id number] A healthy lifestyle: care instructions Not available 03/10/2025 12:49:05 Reason for Referral None Reported. Results Created Date Observation Date Name Description Value Unit Range Abnormal Flag Note LastModifiedBy Organization Detail LastModifiedTime 03/06/2003/06/2025 25-hy droxy vitam in D3 [Mass /volu me] in Serum or Plasm a 25-hydroxyvi tamin D3 [mass/volume ] in serum or plasma 20.7 NG/mL low: 30NG/m Lhigh: 80NG/m L low Vitam in D, 25 [place] xy 20.7 (L) 30 - 80 ng/mL 04/18 /2025 1:03 PM CDT [facility] Not Available Not Available 03/09/2025 12:12:58 03/06/20 25 03/06/2025 25-hy droxy vitam in D3 [Mass /volu me] in Serum or Plasm a Unknown Analyte VITAMI N D STATUS : DEFICI ENCY <20 NG/ML INSUFF ICIENC Y 20-30 NG/ML SUFFIC IENCY 30-100 NG/ML TOXICI TY >100 NG/ML Vitam in D Statu s: Defic iency <20 ng/mL Insuf ficie ncy 20-30 ng/mL Suffi cienc y 30-10 0 ng/mL Toxic ity >100 ng/mL Not Available Not Available 03/09/2025 12:12:58 03/06/20 25 03/06/2025 25-hy droxy vitam in D3 [Mass /volu me] in Serum or Plasm a interpretati on and review of laboratory results ABNORM AL Not Available Not Available 12:12:58 03/06/2003/06/2025 Compr ehens tenisha metab olic 1999 panel - Serum or Plasm a glucose [mass/volume ] in serum or plasma 124 mg/dL low: 70mg/d Lhigh: 99mg/d L high Gluco se 124 (H) 70 - 99 mg/dL 03/06 12:46 PM CDT [facility] Not Available Not Available 03/09/2025 12:12:58 03/06/20 25 03/06/2025 Compr ehens tenisha metab olic 1999 panel - Serum or Plasm a sodium [moles/volum e] in serum or plasma 141 mmol/ L low: 136mmo l/Lhig h: 145mmo l/L Sodiu m 141 136 - 145 mmol/ L 03/06 12:46 PM CDT [facility] Not Available Not Available 03/09/2025 12:12:58 03/06/20 25 03/06/2025 Compr ehens tenisha metab olic 1999 panel - Serum or Plasm a potassium [moles/volum e] in serum or plasma 4 mmol/ L low: 3.5mmo l/Lhig h: 5.1mmo l/L Potas sium 4.0 3.5 - 5.1 mmol/ L 03/06 12:46 PM CDT [facility] Not Available Not Available 03/09/2025 12:12:58 03/06/2003/06/2025 Compr ehens tenisha metab olic 1999 panel - Serum or Plasm a chloride [moles/volum e] in serum or plasma 108 mmol/ L low: 98mmol /Lhigh : 107mmo l/L high Chlor sarah 108 (H) 98 - 107 mmol/ L 03/06 12:46 PM CDT [facility] Not Available Not Available 03/09/2025 12:12:58 03/06/20 25 03/06/2025 Compr ehens tenisha metab olic 1999 panel - Serum or Plasm a carbon dioxide, total [moles/volum e] in serum or plasma 26 mmol/ L low: 22mmol /Lhigh : 29mmol /L CO2 26 22 - 29 mmol/ L 03/06 12:46 PM CDT [facility] Not Available Not Available 03/09/2025 12:12:58 03/06/2003/06/2025 Compr ehens tenisha metab olic 1999 panel - Serum or Plasm a calcium [mass/volume ] in serum or plasma 8.9 mg/dL low: 8.4mg/ dLhigh : 10.4mg /dL Calci um 8.9 8.4 - 10.4 mg/dL 03/06 12:46 PM CDT [facility] Not Available Not Available 03/09/2025 12:12:58 03/06/2003/06/2025 Compr ehens tenisha metab olic 1999 panel - Serum or Plasm a anion gap in blood by calculation 7 mmol/ L low: 6mmol/ Lhigh: 16mmol /L Anion Gap 7 6 - 16 mmol/ L 03/06 12:46 PM CDT [facility] Not Available Not Available 03/09/2025 12:12:58 03/06/20 25 03/06/2025 Compr ehens tenisha metab olic 1999 panel - Serum or Plasm a urea nitrogen [mass/volume ] in serum or plasma 25 mg/dL low: 7mg/dL high: 26mg/d L BUN 25 7 - 26 mg/dL 04/18 /2025 12:46 PM CDT [facility] Not Available Not Available 03/09/2025 12:12:58 03/06/20 25 03/06/2025 Compr [employer] tenisha metab [facility] 1999 panel - Serum or Plasm a creatinine [mass/volume ] in serum or plasma 0.75 mg/dL low: 0.57mg /dLhig h: 1.11mg /dL Creat inine 0.75 0.57 - 1.11 mg/dL 03/06 12:46 PM CDT [facility] Not Available Not Available 03/09/2025 12:12:58 03/06/20 25 03/06/2025 Compr [employer] tenisha metab ic 1999 panel - Serum or Plasm a alkaline phosphatase [enzymatic activity/vol ume] in serum or plasma 104 U/L low: 40U/Lh igh: 150U/L Alkal ine Phosp hatas e 104 40 - 150 U/L 03/06 12:46 PM CDT [facility] Not Available Not Available 03/09/2025 12:12:58 03/06/20 25 03/06/2025 Compr [employer] tenisha metab ic 1999 panel - Serum or Plasm a alanine aminotransfe rase [enzymatic activity/vol ume] in serum or plasma 25 U/L low: 6U/Lhi gh: 57U/L ALT 25 6 - 57 U/L 03/06 12:46 PM CDT [facility] Not Available Not Available 03/09/2025 12:12:58 03/06/20 25 03/06/2025 Compr [employer] tenisha metab olic 1999 panel - Serum or Plasm a aspartate aminotransfe rase [enzymatic activity/vol ume] in serum or plasma 26 U/L low: 10U/Lh igh: 48U/L AST 26 10 - 48 U/L 03/06 12:46 PM CDT [facility] Not Available Not Available 03/09/2025 12:12:58 03/06/20 25 03/06/2025 Compr [employer] tenisha metab olic 1999 panel - Serum or Plasm a protein [mass/volume ] in serum or plasma 6.6 text: 6.4 - 8.3 gm/dL Prote in Total 6.6 6.4 - 8.3 gm/dL 03/06 12:46 PM CDT [facility] Not Available Not Available 03/09/2025 12:12:58 03/06/20 25 03/06/2025 Compr [employer] tenisha [employer] olic 1999 panel - Serum or Plasm a albumin [mass/volume ] in serum or plasma 3.6 text: 3.4 - 5.0 gm/dL Album in 3.6 3.4 - 5.0 gm/dL 03/06 12:46 PM CDT [facility] Not Available Not Available 03/09/2025 12:12:58 03/06/2003/06/2025 Compr [employer] tenisha [employer] 1999 panel - Serum or Plasm a bilirubin.to galileo [mass/volume ] in serum or plasma 0.4 mg/dL low: 0.2mg/ dLhigh : 1.2mg/ dL Bilir ubin Total 0.4 0.2 - 1.2 mg/dL 03/06 12:46 PM CDT [facility] Not Available Not Available 03/09/2025 12:12:58 03/06/20 25 03/06/2025 Compr [employer] tenisha [employer] 1999 panel - Serum or Plasm a glomerular filtration rate [volume rate/area] in serum, plasma or blood by creatinine-b ased formula (CKD-epi 2020)/1.73 sq M 88 text: >=90 mL/min /1.73 m2 low eGFR by CKD-E PI 88 (L) >=90 mL/mi n/1.7 3 m2 03/06 12:46 PM CDT [facility] Not Available Not Available 03/09/2025 12:12:58 03/06/2003/06/2025 Compr [employer] tenisha [employer] 1999 panel - Serum or Plasm a interpretati on and review of laboratory results ABNORM AL Not Available Not Available 12:12:58 03/06/20 25 03/06/2025 CBC W Auto Diffe renti al panel - Blood leukocytes [#/volume] in blood by automated count 7.1 text: 4.0 - 10.7 x10e9/ L WBC 7.1 4.0 - 10.7 x10E9 /L 03/06 12:28 PM CDT [facility] Not Available Not Available 03/09/2025 12:12:58 03/06/20 25 03/06/2025 CBC W Auto Diffleroy ahumada panel - Blood erythrocytes [#/volume] in blood by automated count 4.5 text: 3.90 - 5.20 x10e12 /L RBC Count 4.50 3.90 - 5.20 x10E1 2/L 03/06 12:28 PM CDT [facility] Not Available Not Available 03/09/2025 12:12:58 03/06/2003/06/2025 CBC W Auto Chacha ahumada panel - Blood hemoglobin [mass/volume ] in blood 12.9 g/dL low: 11.9g/ dLhigh : 15.8g/ dL Hemog lobin 12.9 11.9 - 15.8 g/dL 03/06 12:28 PM CDT [facility] Not Available Not Available 03/09/2025 12:12:58 03/06/2003/06/2025 CBC W Auto Chacha ahumada panel - Blood hematocrit [volume fraction] of blood by automated count 40.4 % low: 34.8%h igh: 46.1% Hemat ocrit 40.4 34.8 - 46.1 % 03/06 12:28 PM CDT [facility] Not Available Not Available 03/09/2025 12:12:58 03/06/2003/06/2025 CBC W Auto Diffleroy ahumada panel - Blood MCV [entitic mean volume] in red blood cells by automated count 89.8 fL low: 80fLhi gh: 98fL MCV 89.8 80.0 - 98.0 fL 03/06 12:28 PM CDT [facility] Not Available Not Available 03/09/2025 12:12:58 03/06/20 25 03/06/2025 CBC W Auto Diffleroy ahumada panel - Blood MCH [entitic mass] by automated count 28.7 pg low: 26.7pg high: 33.6pg MCH 28.7 26.7 - 33.6 pg 03/06 12:28 PM CDT [facility] Not Available Not Available 03/09/2025 12:12:58 03/06/20 25 03/06/2025 CBC W Auto Diffe renti al panel - Blood MCHC [entitic mass/volume] in red blood cells by automated count 31.9 g/dL low: 31.7g/ dLhigh : 36.3g/ dL MCHC 31.9 31.7 - 36.3 g/dL 03/06 12:28 PM CDT [facility] Not Available Not Available 03/09/2025 12:12:58 03/06/20 25 03/06/2025 CBC W Auto Diffe henrique ahumada panel - Blood erythrocyte [distwidth] in red blood cells by automated count 13.6 % low: 11.3%h igh: 14.8% RDW-C V 13.6 11.3 - 14.8 % 03/06 12:28 PM CDT [facility] Not Available Not Available 03/09/2025 12:12:58 03/06/20 25 03/06/2025 CBC W Auto Diffe henrique ahumada panel - Blood platelets [#/volume] in blood by automated count 271 text: 150 - 420 x10e9/ L Plate let Count 271 150 - 420 x10E9 /L 03/06 12:28 PM CDT [facility] Not Available Not Available 03/09/2025 12:12:58 03/06/20 25 03/06/2025 CBC W Auto Diffe renmeghna al panel - Blood platelet [entitic mean volume] in blood by automated count 9.3 fL low: 7.8fLh igh: 11.4fL MPV 9.3 7.8 - 11.4 fL 03/06 12:28 PM CDT [facility] Not Available Not Available 03/09/2025 12:12:58 03/06/20 25 03/06/2025 CBC W Auto Diffe renti al panel - Blood neutrophils/ leukocytes in blood by automated count 76.4 % low: 41%hig h: 74% high Neutr ophil % 76.4 (H) 41.0 - 74.0 % 03/06 12:28 PM CDT [facility] Not Available Not Available 03/09/2025 12:12:58 03/06/2003/06/2025 CBC W Auto Diffe renti al panel - Blood lymphocytes/ leukocytes in blood by automated count 10.3 % low: 17%hig h: 47% low Lymph ocyte % 10.3 (L) 17.0 - 47.0 % 03/06 12:28 PM CDT [facility] Not Available Not Available 03/09/2025 12:12:58 03/06/20 25 03/06/2025 CBC W Auto Diffe renti al panel - Blood monocytes/le ukocytes in blood by automated count 10.3 % low: 3%high : 11% Monoc yte % 10.3 3.0 - 11.0 % 03/06 12:28 PM CDT [facility] Not Available Not Available 03/09/2025 12:12:58 03/06/20 25 03/06/2025 CBC W Auto Diffe renti al panel - Blood eosinophils/ leukocytes in blood by automated count 2 % low: 0%high : 7% Eosin ophil % 2.0 0.0 - 7.0 % 03/06 12:28 PM CDT [facility] Not Available Not Available 03/09/2025 12:12:58 03/06/20 25 03/06/2025 CBC W Auto Diffe renti al panel - Blood basophils/le ukocytes in blood by automated count 0.6 % low: 0%high : 1.6% Basop hil % 0.6 0.0 - 1.6 % 03/06 12:28 PM CDT [facility] Not Available Not Available 03/09/2025 12:12:58 03/06/20 25 03/06/2025 CBC W Auto Diffe renti al panel - Blood immature granulocytes /leukocytes in blood by automated count 0.4 % low: 0%high : 1% Immat ure Granu locyt es % 0.4 0.0 - 1.0 % 03/06 12:28 PM CDT [facility] Not Available Not Available 03/09/2025 12:12:58 03/06/20 25 03/06/2025 CBC W Auto Diffe renti al panel - Blood neutrophils [#/volume] in blood by automated count 5.45 text: 1.60 - 7.50 x10e9/ L Neutr ophil Absol gakona 5.45 1.60 - 7.50 x10E9 /L 03/06 12:28 PM CDT [facility] Not Available Not Available 03/09/2025 12:12:58 03/06/20 25 03/06/2025 CBC W Auto Diffe renti al panel - Blood lymphocytes [#/volume] in blood by automated count 0.73 text: 1.00 - 4.40 x10e9/ L low Lymph ocyte Absol gakona 0.73 (L) 1.00 - 4.40 x10E9 /L 03/06 12:28 PM CDT [facility] Not Available Not Available 03/09/2025 12:12:58 03/06/20 25 03/06/2025 CBC W Auto Diffe renti al panel - Blood monocytes [#/volume] in blood by automated count 0.73 text: 0.15 - 1.00 x10e9/ L Monoc yte Absol gakona 0.73 0.15 - 1.00 x10E9 /L 03/06 12:28 PM CDT [facility] Not Available Not Available 03/09/2025 12:12:58 03/06/20 25 03/06/2025 CBC W Auto Diffe renti al panel - Blood eosinophils [#/volume] in blood 0.14 text: 0.00 - 0.60 x10e9/ L Eosin ophil Absol gakona 0.14 0.00 - 0.60 x10E9 /L 03/06 12:28 PM CDT [facility] Not Available Not Available 03/09/2025 12:12:58 03/06/20 25 03/06/2025 CBC W Auto Diffe renti al panel - Blood basophils [#/volume] in blood by automated count 0.04 text: 0.00 - 0.13 x10e9/ L Basop hil Absol gakona 0.04 0.00 - 0.13 x10E9 /L 03/06 12:28 PM CDT [facility] Not Available Not Available 03/09/2025 12:12:58 03/06/2003/06/2025 CBC W Auto Diffe renti al panel - Blood interpretati on and review of laboratory results ABNORM AL Not Available Not Available 12:12:58 03/12/20 24 01/28/2024 XR, knee, 3 view No observ ation record ed. [address] [id number], [place], [address], 03/12/2024 13:49:31 03/12/20 24 01/28/2024 XR, shoul edy, 2 or more view No observ ation record ed. [address] [id number], [place], [address], 03/12/2024 13:48:59 07/23/20 24 07/23/2024 XR, chest , 2 view No observ ation record ed. [address] [address], [place], [address], 08/08/2024 16:02:35 09/04/20 24 09/03/2024 XR, lumbo sacra l spine No observ ation record ed. [address] [address], [place], [address], 09/04/2024 17:19:32 10/09/20 24 10/09/2024 MRI, lumba r spine , w/o contr ast No observ ation record ed. [address] [address], [place], [address], 10/12/2024 12:54:00 03/10/2009/03/2024 XR, lumbo sacra l spine No observ ation record ed. [address] [address], [place], [address], 03/19/2025 14:12:32 03/10/20 25 09/03/2024 XR, hip, unila teral , 2 or 3 view No observ ation record ed. [facility] [address], [place], [address], 03/19/2025 14:12:33 Result Notes None recorded. Problems Name Problem SNOMED Code Status Onset Date Resolution Date Notes Provider Name and Address Organization Details Recorded Time Benign essential hypertensio n 2352053 Active 2023 Gail Con[place] null, [place] - [facility] 4 16:03:28 Mixed anxiety and depressive disorder 652844353 Active 2023 G[place] [facility] 4 16:03:38 Hyperlipide jameson 37908400 Active 2023 Gail [place] [facility] 4 16:03:49 Blood glucose outside reference range 808235258 Active 2023 GUNNAR Lorenzo Attn: Accountin g,[address] [place], [address], [place] - [facility] 4 10:30:28 Body mass index 25-29 - overweight 167270150 Active 2023 GUNNAR Lorenzo Attn: Accountin g,[address] [place], [address], [place] [facility] 4 10:30:29 Overweight 598360775 Active 2023 GUNNAR Lorenzo Attn: Accountin g,[address] [place], [address], [place] [facility] 4 10:30:30 Long-term drug therapy Active 2023 GUNNAR Lorenzo Attn: Accountin g,[address] [place], [address], [place] [facility] 4 10:30:31 Adult health examination Active 2023 GUNNAR Lorenzo Attn: Accountin g,[address] [place], [address], [place] [facility] 4 10:30:36 Right side sciatica 5793428365113 01 Active 2023 GUNNAR Lorenzo Attn: Emma brian,[address] [place], [address], [place] - [facility] 4 23:09:51 Gastroesoph ageal reflux disease without esophagitis 799938317 Active 2023 GUNNAR Lorenzo Attn: Tanamary torres,[address] [place], [address], [place] [facility] 4 23:11:01 Pain of left hip joint 5469597043731 00 Active 2023 GUNNAR Lorenzo Attn: Tanamary torres,[address] [place], [address], [place] [facility] 4 11:46:29 Left side sciatica 5444687675255 04 Active 2023 GUNNAR Lorenzo Attn: Emma torres,[address] [place], [address], [place] [facility] 4 11:46:30 Lumbar radiculopat hy 611563780 Active 2023 GUNNAR Lorenzo Attn: Tanamary torres,[address] [place], [address], [place] - [facility] 4 11:46:44 Prediabetes 830610822 Active 2024 GUNNAR Lorenzo Attn: Emma torres,[address] [place], [address], [place] [facility] 5 12:33:00 Electrocard iogram abnormal 104091979 Active 2024 GUNNAR Lorenzo Attn: Emma torres,[address] [place], [address], [place] [facility] 5 01:01:04 Problem Notes None recorded. Procedures Surgical History Date Name Laterality Status Provider Name and Address Organization Details Recorded Time Hernia Repair completed MARICARMEN Rodriguez - [facility] 01/22/2024 15:15:02 Total hysterectomy completed MARICARMEN Rodriguez [facility] 01/22/2024 15:15:09 Imaging Results Imaging Date Name Status LastModified by Organiz ation Details LastModified Time 01/28/2024 XR, knee, 3 view completed [address], [place], [address], 03/12/2024 13:49:31 01/28/2024 XR, shoulder, 2 or more view completed [address] [place] [address], [address], 03/12/2024 13:48:59 07/23/2024 XR, chest, 2 view completed [address] [place] [address], [address], 08/08/2024 16:02:35 09/03/2024 XR, lumbosacral spine completed [address], [place], [address], 09/04/2024 17:19:32 10/09/2024 MRI, lumbar spine, w/o contrast completed [address] [facility], [place], [address], 10/12/2024 12:54:00 09/03/2024 XR, lumbosacral spine completed [address] [facility], [place], [address], 03/19/2025 14:12:32 09/03/2024 XR, hip, unilateral, 2 or 3 view completed [address] [place] [address], [address], 03/19/2025 14:12:33 Procedure Notes None recorded. Medical Equipment None Reported. Allergies No known drug allergies Medications Name Sig Start Date Stop Date Status Note LastModified by Organization Details LastModified Time cyclobenzap rine 10 mg tablet TAKE 1 TABLET BY MOUTH THREE TIMES DAILY NEEDED FOR SCIATICA 03/10 completed Not Available Not Available Not Available buspirone 5 mg tablet TAKE 1.5 TABLET BY MOUTH TWICE DAILY 11/10 completed Not Available Not Available Not Available prednisone 20 mg tablet TAKE 2 TABLETS BY MOUTH EVERY DAY FOR 5 DAYS 09/03 completed Not Available Not Available Not Available pantoprazol e 40 mg tablet,shandra yed release TAKE 1 TABLET BY MOUTH EVERY DAY active Not Available Not Available No t Available fluoxetine 20 mg tablet TAKE 3 TABLETS BY MOUTH EVERY DAY 03/10 completed Not Available Not Available Not Available buspirone 10 mg tablet TAKE 1 TABLET BY MOUTH TWICE DAILY active Not Available Not Available No t Available diclofenac sodium 75 mg tablet,shandra yed release TAKE 1 TABLET BY MOUTH TWICE DAILY WITH FOOD NEEDED active Not Available Not Available No t Available methylpredn isolone 4 mg tablets in a dose pack FOLLOW PACKAGE DIRECTION S 11/26 completed Not Available Not Available Not Available losartan 100 mg tablet TAKE 1 TABLET BY MOUTH EVERY DAY active Not Available Not Available No t Available rosuvastati n 20 mg tablet TAKE 1 TABLET BY MOUTH EVERY DAY active Not Available Not Available No t Available hydrochloro thiazide 12.5 mg tablet TAKE 1 TABLET BY MOUTH EVERY DAY active Not Available Not Available No t Available fluoxetine 60 mg tablet TAKE 1 TABLET BY MOUTH EVERY DAY active Not Available Not Available No t Available Paxlovid 300 mg (150 mg x 2)-100 mg tablets in a dose pack TK 2 NIRMATREL VIR TS AND 1 RITONAVIR T TOGETHER PO TWICE DAILY FOR 5 DAYS 09/03 completed Not Available Not Available Not Available Vitals Date Recorded Body weight Heart rate Respiratory rate Oxygen saturation Oxygen saturation in Arterial blood by Pulse oximetry Body mass index (BMI) Body height Systolic blood pressure Diastolic blood pressure Provider Name and Address Organization Details Last Updated DateTime 4 65679.4 5 g 70 /min 18 /min 97 % 97 % 28.5 kg/m2 154.94 cm 108 mm[Hg] 73 mm[Hg] Patricia Crawford [place] - [facility] 4 14:55:05 Date Recorded Systolic blood pressure Diastolic blood pressure Provider Name and Address Organization Details Last Updated DateTime 01/22/2024 110 mm[Hg] 80 mm[Hg] GUNNAR Lorenzo Attn: Accounting,[address] [place], [address], [facility] 01/22/2024 15:49:38 Date Recorded Body height Body mass index (BMI) Body weight Oxygen saturation Oxygen saturation in Arterial blood by Pulse oximetry Heart rate Systolic blood pressure Diastolic blood pressure Provider Name and Address Organization Details Last Updated DateTime 4 154.94 cm 28.5 kg/m2 09661.7 4 g 98 % 98 % 60 /min 140 mm[Hg] 88 mm[Hg] Patricia Crawford MA [facility] 4 10:10:30 Date Recorded Respiratory rate Systolic blood pressure Diastolic blood pressure Provider Name and Address Organization Details Last Updated DateTime 07/23/2024 18 /min 130 mm[Hg] 80 mm[Hg] GUNNAR Lorenzo Attn: Accounting, [address] [place], [address], [facility] 07/23/2024 10:38:58 Date Recorded Body height Body mass index (BMI) Body weight Respiratory rate Oxygen saturation Oxygen saturation in Arterial blood by Pulse oximetry Heart rate Systolic blood pressure Diastolic blood pressure Provider Name and Address Organization Details Last Updated DateTime 4 154.94 cm 29.1 kg/m2 84539.2 2 g 18 /min 97 % 97 % 60 /min 126 mm[Hg] 82 mm[Hg] Patricia Crawford MA [facility] 4 16:03:01 Date Recorded Body height Body mass index (BMI) Body weight Oxygen saturation Oxygen saturation in Arterial blood by Pulse oximetry Heart rate Systolic blood pressure Diastolic blood pressure Provider Name and Address Organization Details Last Updated DateTime 5 154.94 cm 28.3 kg/m2 66383.8 6 g 98 % 98 % 69 /min 116 mm[Hg] 82 mm[Hg] Patricia Crawford MA [facility] 5 12:20:50 Date Recorded Respiratory rate Systolic blood pressure Diastolic blood pressure Provider Name and Address Organization Details Last Updated DateTime 03/10/2025 16 /min 130 mm[Hg] 84 mm[Hg] GUNNAR Lorenzo Attn: Accounting, [address] [place], [address], [facility] 03/10/2025 12:50:15 Social History Question Answer Notes LastModified by Organizat ion Details LastModified Time Tobacco Smoking Status Former Smoker Patricia Crawford MA [facility], [facility] 01/22/2024 14:54:02 Do You Have An Advance Directive? No Information not available 07/23/2024 What Is Your Level Of Alcohol Consumption? Occasional Information not available 01/22/2024 Are You Blind Or Do You Have Difficulty Seeing? Yes Glasses Information not available 01/22/2024 What Is Your Level Of Caffeine Consumption? Occasional Information not available 01/22/2024 In The 14 Days Before Symptom Onset, Have You Had Close Contact With A Laboratory-confir med COVID-19 While That Case Was Ill? No Information not available 01/22/2024 In The 14 Days Before Symptom Onset, Have You Had Close Contact With A Person Who Is Under Investigation For COVID-19 While That Person Was Ill? No Information not available 01/22/2024 Have You Been To An Area Known To Be High Risk For COVID-19? No Information not available 01/22/2024 Are You Deaf Or Do You Have Serious Difficulty Hearing? No Information not available 01/22/2024 What Type Of Diet Are You Following? REGULAR Information not available 01/22/2024 Are There Any Guns Present In Your Home? No Information not available 01/22/2024 What Was The Date Of Your Most Recent Tobacco Screening? 03/10/2025 Information not available 03/10/2025 What Is Your Current Pack Years? [email or web address] ars Information not available 01/22/2024 Do You Use Your Seat Belt Or Car Seat Routinely? Yes Information not available 01/22/2024 Do You Have Smoke And Carbon Monoxide Detectors In Your Home? Yes Information not available 01/22/2024 At What Age Did You Start Smoking Tobacco? 18 Information not available 01/22/2024 How Much Tobacco Do You Smoke? No Information not available 01/22/2024 Do You Feel Stressed (tense, Restless, Nervous, Or Anxious, Or Unable To Sleep At Night)? [id number] Information not available 01/22/2024 Do You Use Any Illicit Or Recreational Drugs? No Information not available 01/22/2024 Do You Use Sunscreen Routinely? No Information not available 01/22/2024 Has Tobacco Cessation Counseling Been Provided? No Information not available 01/22/2024 How Many Years Have You Smoked Tobacco? 30 Information not available 01/22/2024 Do You Or Have You Ever Used Any Other Forms Of Tobacco Or Nicotine? No Information not available 01/22/2024 Sex: Female Functional Status Question Answer Note LastModified by Organization D etails LastModified Time Are you able to care for yourself? Yes Information n ot available 01/22/2024 What is your exercise level? None Information not available 01/22/2024 Mental Status None recorded. Family History Relationship Description Onset Age of this Age Resolved Age Notes LastModified by Organization Details LastModified Time Mother Depressive disorder [email or web address] Not available 2023 15:15:31 Mother Disorder of thyroid gland tcarterma Not available 2023 15:15:43 Mother Hypertensive disorder tcarterma Not available 2023 15:16:11 Mother Osteoporosis tcarterma Not avai lable 01/22/2024 15:16:28 Father Heart disease tcarterma Not available 2023 15:15:59 Father Myocardial infarction tcarterma Not available 01/21 15:16:19 Medical History Condition Response Coronary Artery Disease N Other N Atrial Fibrillation N High Blood Pressure Y Depression N COPD N Blood Clots N Anxiety Disorder Y Muscle, Joint, or Bone Problems Y Acid Reflux (GERD) N Cancer N Stroke N Headaches N Kidney or Bladder Problems N Skin Problems N Asthma N Allergies N Hepatitis N High Cholesterol N Liver Disease N Thyroid Problems N GI Problems N Anemia N Heart Attack ([place]) N Diabetes N Seizures/Epilepsy N Heart Failure N Osteoporosis N Gynecological History Statement/Question Response Menses Monthly N Current Control Method Hysterectom y Obstetrics History GPAL:G 2 P 2 0 0 2 Type Value Multiple Births 0 Full Term 2 Induced 0 Spontaneous 0 Premature 0 Living 2 Ectopics 0 Total 2 Immunizations Vaccine Type Date Status Note Provider Petr harper and Address Organization Details Recorded Time COVID-19, mRNA, LNP-S, PF, 30 mcg/0.3 mL dose 11/29/2020 completed Patricia Crawford [place], [place] [facility] 03/10/2025 12:18:00 COVID-19, mRNA, LNP-S, PF, 30 mcg/0.3 mL dose 09/23/2021 completed Patricia Crawford [place], [place] [facility] 03/10/2025 12:18:00 COVID-19, mRNA, LNP-S, PF, 30 mcg/0.3 mL dose 11/08/2020 completed Patricia Crawford [place], [place] [facility] 03/10/2025 12:18:00 COVID-19, mRNA, LNP-S, bivalent, PF, 30 mcg/0.3 mL dose 08/04/2022 completed Patricia Crawford [place], [place] [facility] 03/10/2025 12:18:00 COVID-19, mRNA, LNP-S, PF, 50 mcg/0.5 mL 09/01/2023 completed MARICARMEN Rodriguez, [place] [facility] 03/10/2025 12:18:00 Influenza, split virus, quadrivalent, PF 09/13/2023 completed MARICARMEN [place], [place] - [facility] 03/10/2025 12:18:00 Past Encounters Encounter ID Performer Location Encounter Start Date Encounter Closed Date Diagnosis/Indication Diagnosis SNOMED-CT Code Diagnosis ICD10 Code Diagnosis Note [id number] Teofilo Jeter MD [facility] [address] [place] [address] 01/22/2024 14:39:52 01/22/2024 16:03:05 Benign essential hypertension 8241137 I10 stable on losartan 100mg daily. and HCTZ 12.5mg daily. Hyperlipidemia 76305877 E78.5 on statin therapy , crestor 20mg, and due for lipid panel Mixed anxi ety and depressive disorder 087518766 F41.8 stable on fluoxetine 60mg daily. Long-term drug therapy 586278258 Z79.899 routine cbc, cmp, b12, folate and TFTs ordered Diabetes m ellitus screening 683074233 Z13.1 annual a1c screening due Pain of le ft shoulder joint 8544626683 2383784 M25.512 check xray left shoulder joint Pain of ri ght knee joint 0054116739 39423 M25.561 check xray right knee [id number] Teofilo Jeter MD [facility] [address] [place] [address] 07/23/2024 09:55:49 07/23/2024 11:04:04 Body mass index 25-29 - overweight 597174170 Z68.28 BMI is 28.5 Overweight 324839243 E66 .3 Benign ess ential hypertension 5899752 I10 stable on losartan 100mg daily. and HCTZ 12.5mg daily. Mixed anxi ety and depressive disorder 572518733 F41.8 some anxiety spike currently; on fluoxetine 60mg daily. Add BuSpar 5 mg twice daily for tighter anxiety control Hyperlipidemia 00988983 E78.5 on statin therapy , crestor 20mg, and due for lipid panel Long-term drug therapy 748669569 Z79.899 routine cbc, cmp, b12, folate and TFTs ordered for February 05, 2025 Adult heal th examination 548344971 Z00.01 well exam completed Blood gluc ose outside reference range 931639662 R73.09 Following A1c which is 5.8% currently on exam. Repeat in January Screening mammography 24 774417 Z12.31 Annual mammogram is ordered Wheezing 69633171 R06.2 Wheezing appreciate d on exam today with some acute respirator y symptoms that presented in the last 2 days. She was originally negative on COVID test and has been encouraged to repeat again tomorrow. Check a chest x-ray today Gastroesop hageal reflux disease without esophagitis 423022938 K21.9 Stable on PPI therapy continue without changes Right side sciatica 3202 278933 04595 M54.31 Start prednisone 40 mg daily x5 days to calm down sciatic nerve inflammati on [id number] Teofilo Jeter MD [facility] [address] [place] [address] 09/03/2024 15:45:40 09/03/2024 16:22:23 Lumbar radiculopathy 471826822 M54.16 Check baseline x-ray of the lumbosacra l spine and then proceed with MRI of the lumbar spine to evaluate disc spacing and nerve impingemen t Left side sciatica 40169 16960 06829 M54.32 Start Medrol Dosepak, Flexeril 10 mg 3 times a day as needed and home low back exercises Pain of le ft hip joint 1805353124 77935 M25.552 Check baseline x-ray of the left hip [id number] Teofilo Jeter MD [facility] Price [address] [place] [address] 03/10/2025 12:07:55 03/10/2025 14:00:35 Body mass index 25-29 - overweight 636386404 Z68.28 BMI is 28.3 Overweight 071548727 E66 .3 Benign ess ential hypertension 7892234 I10 stable on losartan 100mg daily. and HCTZ 12.5mg daily. Blood pressure is 130/84 Hyperlipidemia 10252911 E78.5 on statin therapy , crestor 20mg Mixed anxi ety and depressive disorder 878239650 F41.8 Stable on BuSpar 10 mg twice daily and fluoxetine 60 mg daily Long-term drug therapy 221443580 Z79.899 Prediabetes 743104844 R7 3.03 5.8% A1c January of 2024 Gastroesop hageal reflux disease 159182611 K21.9 Stable on pantoprazo le 40 mg daily continue without changes Vitamin D deficiency 347 68585 E55.9 On high-dose vitamin-D supplement now Electrocar diogram abnormal 572324173 R94.31 EKG is abnormal that was ordered by the surgeon preoperati navin, we will send for Lexiscan Cardiolite stress testing for preop clearance needs. Possible ischemia patterns possible old infarct pattern on EKG Health Concerns Section Related Observation LastModified by Organization Detai ls LastModified Time None Recorded Concern Status LastModified by Organization Details LastModified Time None Recorded Advance Directives Directive N: Payers Encounter Date Sequence Insurance Name Policy Number Policy Kaufman Covered Member ID Kaufman Member ID Guarantor Name 01/22/2024 1 [employer] [id number] Rachel Raman [id number] Rachel Raman 07/23/2024 1 R [id number] Rachel Raman [id number] Rachel Raman 09/03/2024 1 R [id number] Rachel Raman [id number] Rachel Raman 03/10/2025 1 [employer] (MEDICARE REPLACEMENT PPO) [id number] Rachel Raman [id number] Rachel Raman Notes Date Note Type Note Provider Name and Address Organization Details Recorded Time 024 text/ht ml Anxiety/DepressionReported bypatient.Quality:symptoms improved Severity:denies suicidal ideations; able to maintain relationships; does not interfere with activities of daily living Context:no major life stressors Modifying Factors:social support; medications as directed Associated Symptoms:denies homicidal ideations; mood good; appetite good; energy good; maintaining functionalityHyperlipidemiaReported bypatient.Type of hyperlipidemia:hypercholesterolemia Duration:chronic Control:usually well controlled; improving; at goal Current Therapy:currently taking: Compliance:compliant; compliant with diet Complications:no coronary artery disease; no peripheral artery disease; no cardiovascular disease Risk Factors:hypertensionHypertensionRepor [place] bypatient.Severity:mild Duration:has noted for years Onset/Timing:better Alleviating Factors:medication Associated Symptoms:no shortness of breath; no fatigue; no palpitations; no decline in exercise capacity; no snoringMusculoskeletal PainReported bypatient.Location:left shoulder; right knee Quality:dull Severity:worsening Duration:present for 6-12 months Timing:constant Context:overuse Aggravating factors:movement/positioning Associated Symptoms:no fever; no weak limbs; no tinglingReflux/GERDReported bypatient.SymptomsAsymptomatic Severity:improving Duration:present 5 or more years Context:non-smoker; no drug/alcohol abuse; no drug alcohol withdrawal Alleviating Factors:medication; protein pump inhibitors Aggravating Factors:worsened by food Associated Symptoms:no frequent coughing; no feeling of fullness/mass in throat; no hoarseness; no food getting stuck; no belching/burping; no nausea; no vomiting; not vomiting blood; no regurgitation; no shortness of breath; no chest pain; no heartburn; no difficulty swallowing; no pain when swallowing; no bad taste; no decreased appetite; no weight loss; no black/tarry stools; no fatigue; no throat pain GUNNAR Lorenzo Attn: Accounting ,[address] [place], [address] , [place] [facility] 01/22/2024 23:22:50 024 text/ht ml Anxiety/DepressionReported bypatient.Quality:symptoms improved Severity:denies suicidal ideations; able to maintain relationships; does not interfere with activities of daily living Context:no major life stressors Modifying Factors:social support; medications as directed Associated Symptoms:denies homicidal ideations; mood good; appetite good; energy good; maintaining functionalityHyperlipidemiaReported bypatient.Type of hyperlipidemia:hypercholesterolemia Duration:chronic Control:usually well controlled; improving; at goal Current Therapy:currently taking: Compliance:compliant; compliant with diet Complications:no coronary artery disease; no peripheral artery disease; no cardiovascular disease Risk Factors:hypertensionHypertensionRepor [place] bypatient.Severity:mild Duration:has noted for years Onset/Timing:better Alleviating Factors:medication Associated Symptoms:no shortness of breath; no fatigue; no palpitations; no decline in exercise capacity; no snoringMusculoskeletal PainReported bypatient.Location:pain radiating to the buttocks;pain radiating to the legs right; right knee; right gluteal to upper right thigh. Quality:dull Severity:same Duration:present <1 month Timing:constant Context:overuse Aggravating factors:movement/positioning Associated Symptoms:no fever; no weak limbs; no tinglingReflux/GERDReported bypatient.SymptomsAsymptomatic Severity:improving Duration:present 5 or more years Context:non-smoker; no drug/alcohol abuse; no drug alcohol withdrawal Alleviating Factors:medication; protein pump inhibitors Aggravating Factors:worsened by food Associated Symptoms:no frequent coughing; no feeling of fullness/mass in throat; no hoarseness; no food getting stuck; no belching/burping; no nausea; no vomiting; not vomiting blood; no regurgitation; no shortness of breath; no chest pain; no heartburn; no difficulty swallowing; no pain when swallowing; no bad taste; no decreased appetite; no weight loss; no black/tarry stools; no fatigue; no throat pain GUNNAR Lorenzo Attn: Accounting ,[address] [facility], [place], [address] , [facility] 07/27/2024 23:11:41 024 text/ht ml Musculoskeletal PainReported bypatient.Notes:left leg pain, states that it radiates from her buttock into her groin and down into her left knee, States that it has been persistent these last couple of day, no popping/cracking noises. She did have the sciatica in the past but it has flared back up again. There was even pain that is in her left hip joint. GUNNAR Lorenzo Attn: Accounting ,[address] [facility], [place], [address] , [facility] 09/21/2024 11:46:58 025 text/ht ml Anxiety/DepressionReported bypatient.Quality:symptoms improved Severity:denies suicidal ideations; able to maintain relationships; does not interfere with activities of daily living Context:no major life stressors Modifying Factors:social support; medications as directed Associated Symptoms:denies homicidal ideations; mood good; appetite good; energy good; maintaining functionalityHyperlipidemiaReported bypatient.Type of hyperlipidemia:hypercholesterolemia Duration:chronic Control:usually well controlled; improving; at goal Current Therapy:currently taking: Compliance:compliant; compliant with diet Complications:no coronary artery disease; no peripheral artery disease; no cardiovascular disease Risk Factors:hypertensionHypertensionRepor [place] bypatient.Severity:mild Duration:has noted for years Onset/Timing:better Alleviating Factors:medication Associated Symptoms:no shortness of breath; no fatigue; no palpitations; no decline in exercise capacity; no snoringMusculoskeletal PainReported bypatient.Location:pain radiating to the buttocks;pain radiating to the legs right; right knee; right gluteal to upper right thigh. Quality:dull Severity:same Duration:present <1 month Timing:constant Context:overuse Aggravating factors:movement/positioning Associated Symptoms:no fever; no weak limbs; no tinglingReflux/GERDReported bypatient.SymptomsAsymptomatic Severity:improving Duration:present 5 or more years Context:non-smoker; no drug/alcohol abuse; no drug alcohol withdrawal Alleviating Factors:medication; protein pump inhibitors Aggravating Factors:worsened by food Associated Symptoms:no frequent coughing; no feeling of fullness/mass in throat; no hoarseness; no food getting stuck; no belching/burping; no nausea; no vomiting; not vomiting blood; no regurgitation; no shortness of breath; no chest pain; no heartburn; no difficulty swallowing; no pain when swallowing; no bad taste; no decreased appetite; no weight loss; no black/tarry stools; no fatigue; no throat pain GUNNAR Lorenzo Attn: Accounting ,[address] [place], [address] , [facility] 03/23/2025 01:01:28 OBGyn Episode No OBEpisode recorded.
--- OUTSIDE RECORDS SUMMARY | 2025-03-25 10:10 | XMS_ITS | Data Portability ---
Author Organization [place] [facility] [employer], Main Office Address [address] [place] [address] Assessment Encounter Date Assessment Date Assessment LastModified by Organization Details LastModified Time 05/18/2023 05/18/2023 colonoscopy 2016. [email or web address] Not available 05/18/2023 15:47:00 Plan of Treatment Reminders Order Date Submit Date Provider Last Modified By Organization Details Last Modified Time Details Appointments None record ed. Lab None record ed. Referral None record ed. Procedures None record ed. Surgeries None record ed. Imaging None record ed. Medication Orders None record ed. Patient TargetsNo targets recorded. Patient InstructionsNo instructions recorded. Reason for Referral None Reported. Results Created Date Observation Date Name Description Value Unit Range Abnormal Flag Note LastModifiedBy Organization Detail LastModifiedTime 03/18/20 21 03/18/2021 upper endos copy proce dure (EGD) (PROC ) No observ ation record ed. [id number] Not Available 01/17/2023 18:01:30 05/11/20 21 04/11/2021 imagi ng/di agnos tic resul t No observ ation record ed. [id number] [facility] [address] [facility] [address] [place] [address], [address], 01/17/2023 18:01:30 07/06/20 21 06/04/2021 XR, da mejía No observ ation record ed. [id number] [facility] (Imaging) [address] [facility] [address], [place], [address], 01/17/2023 18:01:30 08/16/20 21 08/15/2021 CT, abdom en, w/o contr ast No observ ation record ed. [id number] [facility] (Imaging) [address], [place], [address], 01/17/2023 18:01:30 02/14/20 23 11/17/2022 MAMMO , scree lachelle, digit al, bilat eral No observ ation record ed. [email or web address] [facility] [address], [place], [address], 05/18/2023 15:56:44 Result Notes None recorded. Problems Name Problem SNOMED Code Status Onset Date Resolution Date Notes Provider Name and Address Organization Details Recorded Time Decreased hearing 045456002 Active 2021 Not Available [facility] 3 18:00:40 Benign hypertensi on 87900515 Active Not Available [facility] 3 18:00:40 Benign essential hypertensi on 0618236 Active 2021 Not Available [facility] 3 18:00:40 Pain of right shoulder joint 1286423500586 9100 Active 2021 Not Available [facility] 3 18:00:40 Serum total protein outside reference range 526922732 Active 2021 Not Available [facility] 3 18:00:40 Mixed anxiety and depressive disorder 675259312 Active 2021 Not Available [facility] 3 18:00:40 Gastroesop hageal reflux disease 837315214 Active 2021 Not Available [facility] 3 18:00:40 Multiple gastric erosions 064772274 Active Not Available [facility] 3 18:00:40 Anemia 425423615 Active Not Available [facility] 3 18:00:40 Low back pain 331466830 Active Not Available [facility] 3 18:00:40 Vitamin D deficiency 76090087 Active Not Available [facility] 3 18:00:40 Hiatal hernia with gastroesop hageal reflux 633364270 Active 2020 Not Available [facility] 3 18:00:41 Pain of hip region 36467961 Active Not Available [facility] 3 18:00:41 Cough 18524148 Active Not Available [facility] 3 18:00:41 Hyperlipid emia 60959522 Active Not Available [facility] 3 18:00:41 Dyspnea on exertion 35697077 Active Not Available [facility] 3 18:00:41 Bursitis of hip 40853750 Active Not Available [facility] 3 18:00:41 Iron deficiency anemia 10328642 Active Not Available [facility] 3 18:00:41 Weight gain 1023730 Active Not Available [facility] 3 18:00:41 Problem Notes None recorded. Procedures Surgical History Date Name Laterality Status Provider Name and Address Organization Details Recorded Time 08/25/20 22 perineorrhaphy completed Not Available [facility] 01/17/2023 18:00:24 08/19/20 22 repair of urinary bladder completed Not Available [facility] 01/17/2023 18:00:24 06/01/20 21 hernia repair completed Not Available [facility] 01/17/2023 18:00:24 07/31/20 16 Date of Last Colonoscopy completed Not Available [facility] 01/17/2023 18:00:24 07/31/20 16 Colonoscopy completed Not Available [facility] 01/17/2023 18:00:24 11/19/19 12 hysterectomy completed Not Available [facility] 01/17/2023 18:00:24 06/03/20 08 release of trigger thumb completed Not Available [facility] 01/17/2023 18:00:24 03/07/20 07 Carpal tunnel surgery completed Not Available [facility] 01/17/2023 18:00:24 11/19/18 88 Ligation of hemorrhoid(s) completed Not Available [facility] 01/17/2023 18:00:24 Imaging Results Imaging Date Name Status LastModified by [facility] Details LastModified Time 03/18/2021 upper endoscopy procedure (EGD) (PROC) completed [id number] Information not available 01/17/2023 18:01:30 04/11/2021 imaging/diagnos tic result completed [id number], [address], 01/17/2023 18:01:30 06/04/2021 XR, esophagram completed [id number] [facility] (Imaging) [address] [place] [address], [address], 01/17/2023 18:01:30 08/15/2021 CT, abdomen, w/o contrast completed [id number] [facility] (Imaging) [address] [place] [address], [address], 01/17/2023 18:01:30 11/17/2022 MAMMO, screening, digital, bilateral completed [email or web address] [address], [address], 05/18/2023 15:56:44 Procedure Notes None recorded. Medical Equipment None Reported. Allergies Allergen ID Allergen Name Allergen Category Reaction Reaction Severity Criticality Documentation Date Start Date Code Code System Note Provider Name and Address Organization Details Recorded Time 10893 Macrobid medicatio n Not available Not available Not available 01/17/2023 54824 1 RxNorm Not Available [facility] 3 18:01:29 10626 Bactrim medicatio n Not available Not available Not available 01/17/2023 59124 9 RxNorm Not Available [facility] 3 18:01:29 Medications Name Sig Start Date Stop Date Status Note LastModified by Organization Details LastModified Time losartan 50 mg tablet TAKE ONE TABLET BY MOUTH ONCE DAILY 08/27 completed Not Available Not Available Not Available fluoxetine 40 mg capsule TAKE 1 CAPSULE BY MOUTH EVERY DAY active Not Available Not Available No t Available ketoconazo le 2 % shampoo U BODY WASH D FOR 1 WK FOR FLARES THEN 1 TO 2 TIMES PER WK FOR MAINTENAN CE 02/13 completed Not Available Not Available Not Available Iron (ferrous sulfate) 325 mg (65 mg iron) tablet Take 1 tablet twice a day by oral route. 08/20 completed takes once or twice a week. Not Available Not Available Not Available fluconazol e 150 mg tablet TK 2 TS PO FOR 1 DAY. REPEAT IN 1 WK 08/07 completed Not Available Not Available Not Available hydrocodon e 5 mg-acetami nophen 325 mg tablet TAKE 1 TABLET BY MOUTH EVERY 6 HOURS NEEDED FOR PAIN 10/31 completed Not Available Not Available Not Available famotidine 40 mg tablet TAKE 1 TABLET BY MOUTH EVERY DAY 10/31 completed Not Available Not Available Not Available sulfametho xazole 800 mg-trimeth oprim 160 mg tablet TAKE 1 TABLET BY MOUTH TWICE DAILY 10/31 completed Not Available Not Available Not Available lovastatin 10 mg tablet TK 1 T PO QD 02/13 completed Not Available Not Available Not Available methocarba mol 750 mg tablet TK 1 T PO TID PRN active Not Available Not Available No t Available pantoprazo le 40 mg tablet,del ayed release TAKE 1 TABLET BY MOUTH EVERY DAY 2022 active Not Available Not Available Not Avai lable esomeprazo le magnesium 40 mg capsule,de layed release TAKE 1 CAPSULE BY MOUTH EVERY DAY. CALL FOR APPOINTME NT 02/25 completed Not Available Not Available Not Available docusate sodium 100 mg capsule TAKE ONE CAPSULE BY MOUTH TWICE DAILY 10/31 completed Not Available Not Available Not Available diclofenac sodium 75 mg tablet,del ayed release TAKE 1 TABLET BY MOUTH TWICE DAILY WITH MEALS NEEDED 2022 active Not Available Not Available Not Avai lable lovastatin 20 mg tablet TK 1 T PO QPM 02/13 completed Not Available Not Available Not Available Vitamin D2 1,250 mcg (50,000 unit) capsule Take 1 capsule(s ) every week x 8 weeks, then once monthly after 01/25 completed Not Available Not Available Not Available losartan 100 mg tablet TAKE 1 TABLET BY MOUTH EVERY DAY 2022 active Not Available Not Available Not Avai lable fluoxetine 20 mg capsule TK 1 C PO D 10/28 completed Not Available Not Available Not Available amoxicilli n 875 mg-potassi um clavulanat e 125 mg tablet TAKE 1 TABLET BY MOUTH TWICE DAILY 05/17 completed Not Available Not Available Not Available Estrace 0.01% (0.1 mg/gram) vaginal cream INSERT 0.5 GRAMS TWICE A WEEK VAGINALLY HS FOR 14 DAYS 02/13 completed Not Available Not Available Not Available rosuvastat in 20 mg tablet TAKE 1 TABLET BY MOUTH EVERY DAY 2022 active Not Available Not Available Not Avai lable nitrofuran toin monohydrat e/macrocry stals 100 mg capsule TAKE 1 CAPSULE BY MOUTH TWICE DAILY 10/31 completed Not Available Not Available Not Available hydrochlor othiazide 12.5 mg tablet TAKE 1 TABLET BY MOUTH EVERY DAY active Not Available Not Available No t Available fluoxetine 60 mg tablet TAKE 1 TABLET BY MOUTH EVERY DAY 2022 active Not Available Not Available Not Avai lable Vitals Date Recorded Body mass index (BMI) Body height Oxygen saturation Oxygen saturation in Arterial blood by Pulse oximetry Heart rate Body temperature Body weight Systolic blood pressure Diastolic blood pressure Provider Name and Address Organization Details Last Updated DateTime 1 31 kg/m2 154.94 cm 96 % 96 % 76 /min 97.4 [degF] 49454.1 5 g 130 mm[Hg] 80 mm[Hg] Not Available [facility] 3 18:00:34 Date Recorded Body mass index (BMI) Body height Oxygen saturation Oxygen saturation in Arterial blood by Pulse oximetry Heart rate Body temperature Body weight Systolic blood pressure Diastolic blood pressure Provider Name and Address Organization Details Last Updated DateTime 1 28.9 kg/m2 154.94 cm 98 % 98 % 87 /min 97 [degF] 41210.6 3 g 110 mm[Hg] 80 mm[Hg] Not Available [facility] 3 18:00:34 Date Recorded Body mass index (BMI) Body height Oxygen saturation Oxygen saturation in Arterial blood by Pulse oximetry Heart rate Body temperature Body weight Systolic blood pressure Diastolic blood pressure Provider Name and Address Organization Details Last Updated DateTime 2 27.6 kg/m2 154.94 cm 97 % 97 % 83 /min 97.3 [degF] 53667.4 9 g 120 mm[Hg] 74 mm[Hg] Not Available [facility] 3 18:00:34 Date Recorded Body mass index (BMI) Body height Oxygen saturation Oxygen saturation in Arterial blood by Pulse oximetry Heart rate Respiratory rate Body temperature Body weight Systolic blood pressure Diastolic blood pressure Provider Name and Address Organization Details Last Updated DateTime 2 27.8 kg/m2 154.94 cm 99 % 99 % 77 /min 16 /min 97.8 [degF] 11252.0 8 g 120 mm[Hg] 80 mm[Hg] Not Available [facility] 3 18:00:34 Date Recorded Body height Body mass index (BMI) Body weight Body temperature Heart rate Oxygen saturation Oxygen saturation in Arterial blood by Pulse oximetry Systolic blood pressure Diastolic blood pressure Provider Name and Address Organization Details Last Updated DateTime 3 154.94 cm 28.7 kg/m2 98616.0 4 g 97.8 [degF] 67 /min 98 % 98 % 110 mm[Hg] 78 mm[Hg] Bekah Jasso RN [place] [employer] 3 15:31:00 Date Recorded Systolic blood pressure Diastolic blood pressure Provider Name and Address Organization Details Last Updated DateTime 05/18/2023 110 mm[Hg] 70 mm[Hg] GUNNAR Lorenzo [address] [place] [address], [address], [employer] 05/18/2023 15:48:05 Social History Question Answer Notes LastModified by Organizat ion Details LastModified Time Tobacco Smoking Status Former Smoker Bekah Jasso RN [facility], [employer] 05/18/2023 15:26:16 What Is Your Level Of Alcohol Consumption? Occasional [id number] Information not available 01/17/2023 What Is Your Level Of Caffeine Consumption? Occasional [id number] Information not available 01/17/2023 How Much Tobacco Do You Chew? None [id number] Information not available 01/17/2023 In The 14 Days Before Symptom Onset, Have You Had Close Contact With A Laboratory-confir med COVID-19 While That Case Was Ill? No [email or web address] Information not available 05/18/2023 In The 14 Days Before Symptom Onset, Have You Had Close Contact With A Person Who Is Under Investigation For COVID-19 While That Person Was Ill? No [email or web address] Information not available 05/18/2023 Are You Currently Employed? Yes [email or web address] Information not available 05/18/2023 What Type Of Diet Are You Following? REGULAR [id number] Information not available 01/17/2023 Which Illicit Or Recreational Drugs Have You Used? 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 No [email or web address] Information no t available 05/18/2023 Are There Any Guns Present In Your Home? No [email or web address] Information not available 05/18/2023 Do You Use Insect Repellent Routinely? No [email or web address] Information not available 05/18/2023 Do You Use Your Seat Belt Or Car Seat Routinely? Yes [email or web address] Information not available 05/18/2023 Do You Have Smoke And Carbon Monoxide Detectors In Your Home? Yes [email or web address] Information not available 05/18/2023 How Much Tobacco Do You Smoke? 1 PPW [id number] Information not available 01/17/2023 Do You Use Any Illicit Or Recreational Drugs? No [email or web address] Information not available 05/18/2023 Do You Use Sunscreen Routinely? Yes [email or web address] Information not available 05/18/2023 Have You Recently Traveled Abroad? No [email or web address] Information not available 05/18/2023 Do You Have Any Dietary Restrictions? No [email or web address] Information not available 05/18/2023 Sex: Female Functional Status Question Answer Note LastModified by Organizat ion Details LastModified Time What is your exercise level? None [id number] Information not available 01/17/2023 Mental Status None recorded. Family History Relationship Description Onset Age of this Age Resolved Age Notes LastModified by Organization Details LastModified Time Mother Diverticulit is [email or web address] Not available 15:26:16 Mother Hypertensive disorder [id number] Not available 01/17/2023 18:00:25 Mother Anxiety disorder [id number] Not available 01/17/2023 18:00:25 Father Coronary arterioscler osis [email or web address] Not available 15:26:16 Medical History Condition Response INSOMNIA Y HEARTBURN / REFLUX Y HYPERTENSION Y HIGH CHOLESTEROL / HYPERLIPIDEMIA Y Deficiency Y CARDIAC ARRHYTHMIA Y EYE PROBLEMS N OBESITY Y ANXIETY DISORDER Y URINARY/BLADDER/KIDNEY PROBLEMS Y SLEEP DISORDER Y DEPRESSION (INCLUDING POST ) Y BACK / NECK PROBLEMS Y Gynecological History Statement/Question Response How many live births 2 Date of Last Mammogram 11/25/2019 Date of Last Colonoscopy 07/31/2016 Sexually Active? N Menses Monthly N Date of Last Pap 09/19/2011 Current Control Method Hysterectom y Obstetrics History GPAL:G 3 P 0 0 0 2 Type Value Living 2 Total 3 Immunizations Vaccine Type Date Status Note Provider Nam e and Address Organization Details Recorded Time SARS-COV-2 (COVID-19) vaccine, UNSPECIFIED 1 completed Not Available [facility] 01/17/2023 18:01:29 SARS-COV-2 (COVID-19) vaccine, UNSPECIFIED 0 completed Not Available [facility] 01/17/2023 18:01:29 Influenza, split virus, quadrivalent, preservative 9 completed Not Available [facility] 01/17/2023 18:01:29 influenza, unspecified formulation 6 completed Not Available [facility] 01/17/2023 18:01:29 influenza, unspecified formulation 5 completed Not Available [facility] 01/17/2023 18:01:29 Past Encounters Encounter ID Performer Location Encounter Start Date Encounter Closed Date Diagnosis/Indication Diagnosis SNOMED-CT Code Diagnosis ICD10 Code Diagnosis Note [id number] GUNNAR Lorenzo [facility] [place] [address] [place] [address] 02/25/2021 00:00:00 03/18/2021 08:43:57 [id number] GUNNAR Lorenzo [facility] [place] [address] [place] [address] 11/04/2021 00:00:00 11/17/2021 20:11:02 [id number] Teofilo Jeter MD [facility] [place] [address] [place] [address] 05/01/2022 00:00:00 05/18/2022 16:29:28 [id number] GUNNAR Lorenzo [facility] [place] [address] [place] [address] 10/31/2022 00:00:00 11/16/2022 16:39:24 [id number] GUNNAR Lorenzo [facility] [place] [address] [place] [address] 05/18/2023 15:25:17 05/18/2023 15:56:17 Adult health examination 551067387 Z00.01 well exam completed. labs were completed in february but not faxed to us. we have called to get them. Benign ess ential hypertension 5708775 I10 great control on medication . Hiatal her juanito with gastroesophageal reflux 286185052 K21.9 stable on PPI therapy Hyperlipidemia 77094206 E78.5 stable on statin therapy. Mixed anxi ety and depressive disorder 229633344 F41.8 stable. no c/o on fluoxetine . Long-term drug therapy 250879379 Z79.899 f/u 6 months. Health Concerns Section Related Observation LastModified by Organization Detai ls LastModified Time None Recorded Concern Status LastModified by Organization Details LastModified Time None Recorded Advance Directives Directive None Recorded Payers Encounter Date Sequence Insurance Name Policy Number Policy K[place]man Covered Member ID Kaufman Member ID Guarantor Name 05/18/2023 1 [facility] [employer] (PPO) [id number] Rachel Raman [id number] Rachel Raman Notes Date Note Type Note Provider Name and Address Organization Details Recorded Time 021 text/h tml Anxiety/DepressionReported bypatient.Severity:denies suicidal ideations; able to maintain relationships; does not interfere with activities of daily living Context:no major life stressors Associated Symptoms:denies homicidal ideations; no significant weight gain; no significant weight loss; no visual/auditory hallucinations; no delusions; no shortness of breath; mood good; no anxiety; no crying spells; no panic; no isolation; sleeping well; appetite good; energy good; no apathy; maintaining functionalityHyperlipidemiaReported bypatient.Control:usually well controlled; improving; at goal Compliance:compliant; compliant with diet; exercises Complications:no coronary artery disease; no peripheral artery disease; no cardiovascular diseaseHypertensionReported bypatient.Onset/Timing:better Self Care:not under emotional stress Associated Symptoms:no shortness of breath; no fatigue; no palpitations; no decline in exercise capacity; no snoringReflux/GERDReported bypatient.Symptomsasymptomatic; no difficulty swallowing; no pain swallowing; no postprandial pain Severity:improving Context:non-smoker; no drug/alcohol abuse; no drug alcohol withdrawal; not related to food/drink Associated Symptoms:no frequent coughing; no feeling of fullness/mass in throat; no hoarseness; no food getting stuck; no belching/burping; no nausea; no vomiting; not vomiting blood; no regurgitation; no shortness of breath; no chest pain; no heartburn; no difficulty swallowing; no pain when swallowing; no bad taste; no decreased appetite; no weight loss; no black/tarry stools; no fatigue; no throat pain; no dental erosion; no bloating; no early satiety; no halitosisNotes:Ins doesn't cover her Esomperazole anymore, needs something else. Not Available [facility] [employer] [facility] 03/18/2021 08:43:57 021 text/h tml Anxiety/DepressionReported bypatient.Severity:denies suicidal ideations; able to maintain relationships; does not interfere with activities of daily living Context:no major life stressors Associated Symptoms:denies homicidal ideations; no significant weight gain; no significant weight loss; no visual/auditory hallucinations; no delusions; no shortness of breath; mood good; no anxiety; no crying spells; no panic; no isolation; sleeping well; appetite good; energy good; no apathy; maintaining functionalityHyperlipidemiaReported bypatient.Control:usually well controlled; improving; at goal Compliance:compliant; compliant with diet; exercises Complications:no coronary artery disease; no peripheral artery disease; no cardiovascular diseaseHypertensionReported bypatient.Onset/Timing:better Self Care:not under emotional stress Associated Symptoms:no shortness of breath; no fatigue; no palpitations; no decline in exercise capacity; no snoringReflux/GERDReported bypatient.Symptomsasymptomatic; no difficulty swallowing; no pain swallowing; no postprandial pain Severity:improving Context:non-smoker; no drug/alcohol abuse; no drug alcohol withdrawal; not related to food/drink Associated Symptoms:no frequent coughing; no feeling of fullness/mass in throat; no hoarseness; no food getting stuck; no belching/burping; no nausea; no vomiting; not vomiting blood; no regurgitation; no shortness of breath; no chest pain; no heartburn; no difficulty swallowing; no pain when swallowing; no bad taste; no decreased appetite; no weight loss; no black/tarry stools; no fatigue; no throat pain; no dental erosion; no bloating; no early satiety; no halitosis Not Available [facility] 11/17/2021 20:11:02 022 text/h tml Anxiety/DepressionReported bypatient.Severity:denies suicidal ideations; able to maintain relationships; does not interfere with activities of daily living Context:no major life stressors Associated Symptoms:denies homicidal ideations; no significant weight gain; no significant weight loss; no visual/auditory hallucinations; no delusions; no shortness of breath; mood good; no anxiety; no crying spells; no panic; no isolation; sleeping well; appetite good; energy good; no apathy; maintaining functionalityHyperlipidemiaReported bypatient.Control:usually well controlled; improving; at goal Compliance:compliant; compliant with diet; exercises Complications:no coronary artery disease; no peripheral artery disease; no cardiovascular diseaseHypertensionReported bypatient.Onset/Timing:better Self Care:not under emotional stress Associated Symptoms:no shortness of breath; no fatigue; no palpitations; no decline in exercise capacity; no snoringReflux/GERDReported bypatient.Symptomsasymptomatic; no difficulty swallowing; no pain swallowing; no postprandial pain Severity:improving Context:non-smoker; no drug/alcohol abuse; no drug alcohol withdrawal; not related to food/drink Associated Symptoms:no frequent coughing; no feeling of fullness/mass in throat; no hoarseness; no food getting stuck; no belching/burping; no nausea; no vomiting; not vomiting blood; no regurgitation; no shortness of breath; no chest pain; no heartburn; no difficulty swallowing; no pain when swallowing; no bad taste; no decreased appetite; no weight loss; no black/tarry stools; no fatigue; no throat pain; no dental erosion; no bloating; no early satiety; no halitosis Not Available [facility] [employer] [facility] 05/18/2022 16:29:28 022 text/h tml Anxiety/DepressionReported bypatient.Quality:doesnt matter time of day Severity:denies suicidal ideations; able to maintain relationships; does not interfere with activities of daily living Duration:symptoms lasting over 2 weeks Onset/Timing:still present Context:major life stressors;family problems Modifying Factors:medications as directed Associated Symptoms:denies homicidal ideations; no significant weight gain; no significant weight loss; no visual/auditory hallucinations; no delusions; no shortness of breath; mood good; no anxiety; no crying spells; no panic; no isolation; sleeping well; appetite good; energy good; no apathy; maintaining functionalityHyperlipidemiaReported bypatient.Duration:chronic Control:usually well controlled Current Therapy:currently taking: (rosuvastatin 20mg) Compliance:compliant;noncompliant with diet;does not exercise Complications:no coronary artery disease; no peripheral artery disease; no cardiovascular disease Risk Factors:hypertensionHypertensionRepor [place] bypatient.Duration:has noted for years Onset/Timing:better Alleviating Factors:medication Self Care:under emotional stress Associated Symptoms:no shortness of breath; no fatigue; no palpitations; no decline in exercise capacity; no snoring Not Available [facility] [employer] [facility] 11/16/2022 16:39:24 023 text/h tml Anxiety/DepressionReported bypatient.Severity:denies suicidal ideations; able to maintain relationships; does not interfere with activities of daily living Context:no major life stressors Associated Symptoms:denies homicidal ideations; no significant weight gain; no significant weight loss; no visual/auditory hallucinations; no delusions; no shortness of breathHyperlipidemiaReported bypatient.Duration:chronic Control:usually well controlled; improving; at goal Compliance:compliant; compliant with diet;does not exercise Complications:no coronary artery disease; no peripheral artery disease; no cardiovascular diseaseHypertensionReported bypatient.Onset/Timing:better Alleviating Factors:medication Associated Symptoms:no shortness of breath; no fatigue; no palpitations; no decline in exercise capacity; no snoringReflux/GERDReported bypatient.Severity:improving Context:non-smoker; no drug/alcohol abuse; no drug alcohol withdrawal; not related to food/drink Associated Symptoms:no frequent coughing; no feeling of fullness/mass in throat; no hoarseness; no food getting stuck; no belching/burping; no vomiting; not vomiting blood; no regurgitation; no shortness of breath; no chest pain; no heartburn; no difficulty swallowing; no pain when swallowing; no bad taste; no decreased appetite; no weight loss; no black/tarry stools; no fatigue; no throat pain wellness [facility] [address], [address], [place] - [facility] 05/18/2023 15:59:30 OBGyn Episode No OBEpisode recorded.
--- OUTSIDE RECORDS SUMMARY | 2025-03-25 10:10 | XMS_ITS | Clinical Summary ---
Author Organization [facility] Address [address] [place] [address] Care Team Providers Care Math Tutor Name Role Phone Dilcia Garcia Primary Care Pr ovider Source Comments [facility],non-owned Affiliates and Associated Physician Practices is amultiple site organization consisting of ambulatory clinics and hospital sitesin [place], [place], [place] and [place]. This disclosure is being madepursuant to the Care Everywhere program and may not contain all information available regarding this patient. Last updated 18.[facility] Allergies No known active allergies Medications * Be aware that medications may not be up to date on this document. Alwaysverify current medications with the patient. hydroCHLOROthia zide 12.5 MG Take 1 (one) tablet by mouth once daily 5 Active losartan (Cozaar) 100 MG tablet Take 1 (one) tablet by mouth once daily 5 Active rosuvastatin (Crestor) 20 MG tablet Take 1 (one) tablet by mouth once daily 5 Active diclofenac sodium EC (Voltaren) 75 MG tablet Take 1 (one) tablet by mouth once daily 5 Active pantoprazole EC (Protonix) 40 MG tablet Take 1 (one) tablet by mouth once daily 5 Active FLUoxetine (PROzac) 60 MG tablet Take 1 (one) tablet by mouth once daily 5 Active busPIRone (Buspar) 10 MG tablet Take 1 (one) tablet by mouth once daily Active esomeprazole (NEXIUM) 40 MG capsule Take 40 mg by mouth 2 times daily before meals. 03/06/20 Discontinu ed(List Clean-Up) FLUoxetine (PROZAC) 20 MG capsule Take 20 mg by mouth once daily. 03/06/20 Discontinu ed(List Clean-Up) estradiol (VIVELLE-DOT) 0.05 MG/24HR patch Apply 1 Patch to skin every 3 days. 03/06/20 Discontinu ed(List Clean-Up) Active Problems Problem Noted Date Diagnosed Date Anemia 02/23/2025 Bursitis of hip 02/23/2025 Dyspnea on exertion 02/23/2025 Weight gain 02/23/2025 Vitamin D deficiency 02/23/2025 Multiple gastric erosions 02/23/2025 Low back pain 02/23/2025 Iron deficiency anemia 02/23/2025 High blood pressure 02/23/2025 Pain of left hip joint 09/21/2024 Neuralgia of left sciatic nerve 09/21/2024 Lumbar radiculopathy 09/21/2024 Gastroesophageal reflux disease without esophagi tis 07/27/2024 Neuralgia of right sciatic nerve 07/27/2024 Blood glucose abnormal 07/23/2024 Encounter for general adult medical examination with abnormal findings 07/23/2024 Overweight 07/23/2024 Other assisted (current) drug therapy Hyperlipidemia 01/21/2024 Abnormal serum total protein level 07/24/2022 Pain in joint of right shoulder 05/02/2022 Benign essential hypertension 05/01/2022 Decreased hearing 05/01/2022 Mixed anxiety and depressive disorder 05/01/2022 Resolved Problems Problem Noted Date Diagnosed Date Resolved Date Cough 02/23/2025 03/23/2025 Encounters Date Type Department Care Team Description 03/06/2025 11:40 AM CDT - 03/06/2025 11:59 PM CDT Hospital Encounter [facility] [address] [place] [id number] Chan Sandoval IV, MD Discharge Disposition: Home or Self Care 03/06/2025 Results Follow-Up [facility] [address] [address] [place] [address] Willa Avila, PLAYER [employer] TECHNICIAN-HOLLEY 03/06/2025 Travel 02/23/2025 11:40 AM CDT Office Visit [facility] [address] [facility], [address] [place] [phone] Chan Sandoval IV, MD Pain of left hip (Primary Dx) 02/19/2025 Telephone [facility] [address] [facility], [address] [place] [phone] Karen Montana PA-C Results 02/16/2025 10:40 AM CDT - 02/16/2025 11:59 PM CDT Hospital Encounter [facility] [address] [facility] [address] [place] [address] Karen Montana PA-C Discharge Disposition: Home or Self Care 01/19/2025 2:15 PM WOOL BROKER Ancillary Procedure [facility] - Radiology [address] [place] [phone] Karen Montana PA-C Pain of left hip 01/19/2025 2:00 PM WOOL BROKER Office Visit [facility] [address] [facility], [facility] [address] [place] [phone] Karen Montana PA-C Primary osteoarthritis of left hip (Primary Dx); Pain of left hip; Post-menopausal from Last 3 Months Family History Medical History Relation Name Comments Heart Failure Father Arthritis - Rheumatoid Mother Hypertension Mother Hypercholesterolemia Sister Relation Name Status Comments Father Mother Sister Social History Tobacco Use Types Packs/Day Years Used Date Smoking Tobacco: Never Smokeless Tobacco: Never Alcohol Use Standard Drinks/Week Comments Yes 0.4 (1 standard drink = 0.6 oz p ure alcohol) occasionaly PHQ-2 Answer Date Recorded Patient Health Questionnaire-2 Score 0 02/19/2025 Comments Unknown Sex and Gender Information Value Date Recorded Sex Assigned at Not on file Legal Sex Female 2:01 PM WOOL BROKER Gender Identity Not on file Sexual Orientation Not on file Travel History Travel Start Travel End [facility] 02/25/2025 025 Last Filed Vital Signs Vital Sign Reading Time Taken Comments Blood Pressure 130/86 03/06/2025 12:33 PM CDT Pulse 68 03/06/2025 12:33 PM CDT Temperature 37.2 C (98.9 F) 03/06/2025 12:21 PM CDT Respiratory Rate - - Oxygen Saturation 97% 03/06/2025 12: 33 PM CDT Inhaled Oxygen Concentration - - Weight 70.7 kg (155 lb 12.8 oz) 025 12:21 PM CDT Height 154.9 cm (5' 1 ) 03/06/2025 12:2 1 PM CDT Body Mass Index 29.44 03/06/2025 12:21 PM CDT Plan of Treatment Upcoming Encounters Date Type Department Care Team (Latest Contact Info) Description 05/07/2025 9:10 AM CDT Hospital Encounter [facility] - Perioperative Surgery [address] [place] [phone] [place] [address] [address] [address] Surgery General 05/07/2025 9:10 AM CDT - 05/07/2025 11:54 AM CDT Surgery [facility] - Perioperative Surgery [address] [place] [address] [place] [address] [address] [phone] LEFT TOTAL ANTERIOR HIP ARTHROPLASTY 06/01/2025 2:40 PM CDT Office Visit [facility] [address] [place] [phone] [place] [address] [address] [address] 06/22/2025 11:30 AM CDT Office Visit [address] [phone] Karen Montana PAGinnyC [address] [address] [phone] 08/03/2025 11:10 AM CDT Office Visit [facility] [address] [facility], [address] [place] [address] [place] [address] [address] [place] [address] Scheduled Procedures Name Priority Associated Diagnoses Date/Ti me ARTHROPLASTY TOTAL HIP (ANTERIOR) 05/07/2025 9:10 AM C DT Health Maintenance Due Date Last Done Comments COLOGUARD (AGES 45-75) - COL ON CA SCREENING 1960 COLON MONITORING 1960 COLONOSCOPY - COLON CA SCREENING 1960 CT COLONOGRAPHY - COLON CA SCREENING 1960 Colorectal Cancer Screening 1960 FIT - COLON CA SCREENING 1960 FLEX SIG - COLON CA SCREENING 1960 MAMMOGRAM 1960 PAP SMEAR 1960 HIV SCREENING 1975 HEPATITIS C SCREENING 12/31/1977 DTAP/TDAP/TD VACCINES (1 - Tdap) 1979 PNEUMOCOCCAL VACCINE 50+ (1 of 1 - PCV) 2010 ZOSTER VACCINE (1 of 2) 2010 COVID-19 VACCINE ( - 2023-2 5 season) 2024 MEDICARE AWV CALENDAR YEAR 2024 INFLUENZA VACCINE (Season Ended) 2025 09/11/2019, 08/19/2016, 08/19/2015 Respiratory Syncytial Virus (RSV) Vaccine Pt: or over 60 yrs (1 - 1-dose 75+ series) 2035 DEPRESSION SCREENING Completed 01/19/2025, 05/05/2024 BONE DENSITY TESTING Completed 02/16/2025 HEPATITIS B VACCINE Aged Out No longe r eligible based on patient's age to complete this topic HIB VACCINE Aged Out No longer eligi ble based on patient's age to complete this topic HPV VACCINE Aged Out No longer eligi ble based on patient's age to complete this topic MENINGOCOCCAL (Group B) VACCINE SHARED DECISION-MAKING Aged Out No longer eligible based on patient's age to complete this topic MENINGOCOCCAL GROUPS A/C/Y/W VACCINE Aged Out No longer eligible b ased on patient's age to complete this topic Procedures Procedure Name Priority Date/Time Associated Diagnosis Comments EKG 12-LEAD Routine 03/06/2025 12:42 PM CDT Pre-op evaluation VITAMIN D 25-HYDROXY Routine 03/06/2025 12:20 PM CDT Vitamin D deficiency COMPREHENSIVE METABOLIC PANEL Routine 03/06/2025 12:20 PM CDT Pre-op evaluation CBC W AUTO DIFFERENTIAL Routine 03/06/2025 12:20 PM CDT Pre-op evaluation DEXA BONE DENSITY AXIAL SKELETON Routine 02/16/2025 11:20 AM CDT Post-menopausal XR HIP LEFT 2VW OR MORE Routine 01/19/2025 2:14 PM WOOL BROKER Pain of left hip from Last 3 Months Results * EKG 12-LEAD (03/06/2025 12:42 PM CDT) Ventricular Rate 64 BPM [facility] Atrial Rate 64 BPM [facility] P-R Interval 152 ms [facility] QRS Duration ms 76 ms [facility] Q-T Interval ms 430 ms [facility] QTC Calculation (Bezet) 443 ms [facility] Calculated P [place] 25 degrees [facility] Calculated R [place] 0 degrees [facility] Calculated T [place] 22 degrees [facility] Interpretation EKG Normal sinus rhythm Cannot rule out Inferior infarct , age undetermined Cannot rule out Anterior infarct , age undetermined No previous ECGs available Confirmed by ALBERTA GREGORY MD ([id number]) on 03/06/2025 5:10:31 PM [facility] 03/06/2025 12:4 2 PM CDT 03/06/2025 5:10 PM CDT us Leticia Holt DO ECG ORDERABLES Edited Result - Final [facility] * (ABNORMAL) VITAMIN D 25-HYDROXY (03/06/2025 12:20 PM CDT) Pathologist [facility] Vitamin D, 25 Hydroxy 20.7(L) 30 - 80 ng/mL 03/06/2025 1:03 PM CDT [facility] Blood BLOOD SPECIMEN / Unknown Venipuncture / Unknown 03/06/2025 12:20 PM CDT 03/06/2025 12:25 PM CDT Narrative [facility] - 03/06/2025 1:03 PM CDT Vitamin D Status: Deficiency <20 ng/mL Insufficiency 20-30 ng/mL Sufficiency 30-100 ng/mL Toxicity >100 ng/mL Karen Montana PA-C LAB - CHEMISTRY ORDERABLES Final Result [facility] [address] [place] [address] * (ABNORMAL) CBC W AUTO DIFFERENTIAL (03/06/2025 12:20 PM CDT) Pathologist [facility] WBC 7.1 4.0 - 10.7 x10E9/L 03/06/2025 12:28 PM CDT [facility] RBC Count 4.50 3.90 - 5.20 x10E12/L 03/06/2025 12:28 PM CDT [facility] Hemoglobin 12.9 11.9 - 15.8 g/dL 03/06/2025 12:28 PM CDT [facility] Hematocrit 40.4 34.8 - 46.1 % 03/06/2025 12:28 PM CDT [facility] MCV 89.8 80.0 - 98.0 fL 03/06/2025 12:28 PM CDT [facility] MCH 28.7 26.7 - 33.6 pg 03/06/2025 12:28 PM CDT [facility] MCHC 31.9 31.7 - 36.3 g/dL 03/06/2025 12:28 PM CDT [facility] RDW-CV 13.6 11.3 - 14.8 % 03/06/2025 12:28 PM CDT [facility] Platelet Count 271 150 - 420 x10E9/L 03/06/2025 12:28 PM CDT [facility] MPV 9.3 7.8 - 11.4 fL 03/06/2025 12:28 PM CDT [facility] Neutrophil % 76.4(H) 41.0 - 74.0 % 03/06/2025 12:28 PM CDT [facility] Lymphocyte % 10.3(L) 17.0 - 47.0 % 03/06/2025 12:28 PM CDT [facility] Monocyte % 10.3 3.0 - 11.0 % 03/06/2025 12:28 PM CDT [facility] Eosinophil % 2.0 0.0 - 7.0 % 03/06/2025 12:28 PM CDT [facility] Basophil % 0.6 0.0 - 1.6 % 03/06/2025 12:28 PM CDT [facility] Immature Granulocytes % 0.4 0.0 - 1.0 % 03/06/2025 12:28 PM CDT [facility] Neutrophil Absolute 5.45 1.60 - 7.50 x10E9/L 03/06/2025 12:28 PM CDT [facility] Lymphocyte Absolute 0.73(L) 1.00 - 4.40 x10E9/L 03/06/2025 12:28 PM CDT [facility] Monocyte Absolute 0.73 0.15 - 1.00 x10E9/L 03/06/2025 12:28 PM CDT [facility] Eosinophil Absolute 0.14 0.00 - 0.60 x10E9/L 03/06/2025 12:28 PM CDT [facility] Basophil Absolute 0.04 0.00 - 0.13 x10E9/L 03/06/2025 12:28 PM CDT [facility] Blood BLOOD SPECIMEN / Unknown Venipuncture / Unknown 03/06/2025 12:20 PM CDT 03/06/2025 12:25 PM CDT Willa Avila PLAY[employer] TECHNICIAN-GIS DEVELOPER LAB - HEMATOLOGY ORDERABL ES Final Result [facility] [address] [place] [address] * (ABNORMAL) COMPREHENSIVE METABOLIC PANEL (03/06/2025 12:20 PM CDT) Glucose 124(H) 70 - 99 mg/dL 03/06/2025 12:46 PM CDT [facility] Sodium 141 136 - 145 mmol/L 03/06/2025 12:46 PM CDT [facility] Potassium 4.0 3.5 - 5.1 mmol/L 03/06/2025 12:46 PM CDT [facility] Chloride 108(H) 98 - 107 mmol/L 03/06/2025 12:46 PM CDT [facility] CO2 26 22 - 29 mmol/L 03/06/2025 12:46 PM CDT [facility] Calcium 8.9 8.4 - 10.4 mg/dL 03/06/2025 12:46 PM CDT [facility] Anion Gap 7 6 - 16 mmol/L 03/06/2025 12:46 PM CDT [facility] BUN 25 7 - 26 mg/dL 03/06/2025 12:46 PM CDT [facility] Creatinine 0.75 0.57 - 1.11 mg/dL 03/06/2025 12:46 PM CDT [facility] Alkaline Phosphatase 104 40 - 150 U/L 03/06/2025 12:46 PM CDT [facility] ALT 25 6 - 57 U/L 03/06/2025 12:46 PM CDT [facility] AST 26 10 - 48 U/L 03/06/2025 12:46 PM CDT [facility] Protein Total 6.6 6.4 - 8.3 gm/dL 03/06/2025 12:46 PM CDT [facility] Albumin 3.6 3.4 - 5.0 gm/dL 03/06/2025 12:46 PM CDT [facility] Bilirubin Total 0.4 0.2 - 1.2 mg/dL 03/06/2025 12:46 PM CDT [facility] eGFR by CKD-EPI 88(L) >=90 mL/min/1.7 3 m2 03/06/2025 12:46 PM CDT [facility] Blood BLOOD SPECIMEN / Unknown Venipuncture / Unknown 03/06/2025 12:20 PM CDT 03/06/2025 12:25 PM CDT Willa Avila PLAY[employer] TECHNICIAN-GIS DEVELOPER LAB - CHEMISTRY ORDERABLE S Final Result [facility] [address] [place] [address] * Dexa Bone Density Axial Skeleton (02/16/2025 11:20 AM CDT) Anatomical Region Laterality Modality Mammography 02/16/2025 1:48 PM CDT Narrative 02/16/2025 1:49 PM CDT BONE MINERAL DENSITY STUDY INDICATION: Postmenopausal FINDINGS: The average bone mineral density from L1 to L4 is 1.139 g/cm2. T-score is -0.5 which is the standard deviations (SD) of the mean for the young adult. The Z-score is 1.0 which is the standard deviations for the mean for age matched control. The average bone mineral density of the right femoral neck is 0.814 g/cm2. T-score is -1.6. Z-score is -0.2. ASSESSMENT: Osteopenic bone mineral density FRAX FRACTURE RISK ASSESSMENT: Risk factors: None. 10 Year Probability Of Fracture -Major Osteoporotic: 9.1% -Hip: 1.0% -Comparison population: [place], A major osteoporotic fracture is defined as a fracture of the spine, forearm, hip or shoulder. WORLD HEALTH ORGANIZATION DEFINITIONS OSTEOPENIA = -1 TO -2.5 SD BELOW T-SCORE OSTEOPOROSIS = LESS THAN -2.5 SD BELOW T-SCORE 1. No significant- < 1 SD below T score 2. Mild - 1 -2.0 SD below T-score 3. Moderate - 2 -2.5 SD below T-score 4. Significant - > 2.5 SD below T-score > Interpreting Provider: Jolly Kerns MD on 02/16/2025 1:49 PM Procedure Note Jolly Kerns MD - 02/16/2025 BONE MINERAL DENSITY STUDY INDICATION: Postmenopausal FINDINGS: The average bone mineral density from L1 to L4 is 1.139 g/cm2. T-scoreis -0.5 which is the standard deviations (SD) of the mean for the youngadult. The Z-score is 1.0 which is the standard deviations for the mean forage matched control. The average bone mineral density of the right femoral neck is 0.814 g/cm2. T-score is -1.6. Z-score is -0.2. ASSESSMENT: Osteopenic bone mineral density FRAX FRACTURE RISK ASSESSMENT: Risk factors: None. 10 Year Probability Of Fracture -Major Osteoporotic: 9.1% -Hip: 1.0% -Comparison population: [place], A major osteoporotic fracture is defined as a fracture of the spine, forearm, hip or shoulder. WORLD HEALTH ORGANIZATION DEFINITIONS OSTEOPENIA = -1 TO -2.5 SD BELOW T-SCORE OSTEOPOROSIS = LESS THAN -2.5 SD BELOW T-SCORE 1. No significant- < 1 SD below T score 2. Mild - 1 -2.0 SD below T-score 3. Moderate - 2 -2.5 SD below T-score 4. Significant - > 2.5 SD below T-score > Interpreting Provider: Jolly Kerns MD on 02/16/2025 1:49 PM Karen Montana PA-C DEXA ORDERABLES Final Resu lt * XR Hip Left 2Vw or More (01/19/2025 2:14 PM WOOL BROKER) Narrative [facility] [address] - 01/19/2025 2:14 PM WOOL BROKER Please see progress note in Epic for results. Karen Montana PA-C DIAGNOSTIC IMAGING ORDERAB LES Final Result Performing Organization Address City/State/[facility] Co de Phone Number [facility] [address] from Last 3 Months Insurance [employer] MEDICARE ADV Care Teams Math Tutor Relationship Specialty Start Date End Date Dilcia Garcia PA [address] [place] [address] PCP - General Physician Enrolled Nurse 05/05/24
[2025-03-25 12:35] LABS: Basophils Percent Auto 0.3 % (0.2-1.2); Eosinophils Absolute Auto 0.1 K/mm3 (0-0.3); Eosinophils Percent Auto 1.5 % (0-4.4); Hematocrit 40.5 % (37.0-47.0); Hemoglobin 12.7 g/dL (12.0-15.0); Immature Granulocyte Absolute 0.03 K/mm3 (0.00-0.031); Immature Granulocyte Percent A 0.4 % (0-0.5); Lymphocytes Absolute Auto 0.97 K/mm3 (0.9-3.2); Lymphocytes Percent Auto 12.8 % (18.3-44.2); Mean Corpuscular HGB Conc 31.4 g/dl (32-36); Mean Corpuscular Hemoglobin 28.9 pg (26-34); Mean Corpuscular Volume 92.3 fl (80-100); Mean Platelet Volume 9.5 fl (7.4-10.4); Monocytes Absolute Auto 0.7 K/mm3 (0.1-0.6); Monocytes Percent Auto 9.5 % (2.6-8.5); Neutrophils Absolute Auto 5.7 K/mm3 (1.3-6.7); Neutrophils Percent Auto 75.5 % (45.5-73.1); Platelet Count Result 255 k/mm3 (150-375); Red Blood Count 4.39 M/mm3 (4.2-5.4); Red Cell Distribution Width 13.7 % (11.5-14.5); White Blood Count 7.6 K/mm3 (4.5-10.0)
[2025-03-25 12:42] LABS: Cholesterol 197 mg/dL (0-200); HDL Direct 89 mg/dL; Triglycerides 108 mg/dL (<150)
[2025-03-25 12:51] LABS: Hemoglobin A1C 5.6 % (<5.7)
[2025-03-25 12:53] LABS: LDL Cholesterol Direct 73 mg/dL
[2025-03-25 13:12] LABS: Thyroid Stimulating Hormone 0.751 uIU/mL (0.465-4.680)
[2025-03-25 13:16] LABS: Free T4 Free Thyroxine 1.71 ng/dL (0.78-2.19)
[2025-03-25 13:47] LABS: Folic Acid 5.3 ng/mL (2.76->20)
== END 2025-03-25 09:37 | disposition home or self-care (01) ==
PROVIDERS: PCP Physician Assistant; Visit Provider Physician Assistant
DX: R94.39 Abnormal result of other cardiovascular function study (principal); R94.31 Abnormal electrocardiogram [ECG] [EKG]; E78.5 Hyperlipidemia, unspecified; R73.09 Other abnormal glucose; Z79.899 Other long term (current) drug therapy
CPT/HCPCS: 36415; 78452; 80061; 82607; 82746; 83036; 84439; 84443; 85025; 93017; A9502; J2785

== ENCOUNTER 2025-06-03 15:53 | Outpatient (CLI) | payer MEDICARE, SELFPAY ==
--- OUTSIDE RECORDS SUMMARY | 2025-06-03 15:57 | XMS_ITS | Data Portability ---
Author Organization NANCY Gross SIFlorencio Bell Address [address] [place] [address] Assessment No assessment recorded. Plan of Treatment Reminders Order Date Submit Date Provider Last Modified By Organization Details Last Modified Time Details Appointments ANY 15 2024 11:00A M GUNNAR Lorenzo Not available Not available Not available Lab CBC w/ auto diff [address] [facility], [address] [place] [address], [id number], 03/11/2025 11:23:24 CMP, serum or plasma [address] [facility], [address] [place] [address], [id number], 03/11/2025 11:23:31 TSH + free T4, serum [address] [facility], [address] [place] [address], [id number], 03/11/2025 11:24:05 vitamin B12 + folate, serum or blood 2023 025 [facility], [address] [place] [address], [id number], 03/26/2025 13:18:42 HbA1c (hemoglob in A1c), blood 2023 025 [facility], [address] [place] [address], [id number], 03/26/2025 13:18:24 lipid panel, serum [email or web address] [facility], [facility] [address] [place] [address], [id number], 03/11/2025 11:23:16 CBC w/ auto diff 2023 024 [facility], [address] [place] [address] [place] [address], [id number], 02/13/2024 16:04:46 CMP, serum or plasma 2023 024 [facility], [address] [place] [address] [place] [address], [id number], 02/12/2024 12:41:49 vitamin B12 + folate, serum or blood 2023 024 [facility], [address] [place] [address] [place] [address], [id number], 02/13/2024 16:04:47 TSH + free T4, serum 2023 024 [facility], [address] [place] [address] [place] [address], [id number], 02/12/2024 13:03:05 HbA1c (hemoglob in A1c), blood 2023 024 [facility], [address] [place] [address] [place] [address], [id number], 02/13/2024 16:04:47 lipid panel, serum 2023 024 [facility], [address] [place] [address], [id number], 02/12/2024 12:48:34 Referral None recorded. Procedures lexiscan cardiolit e stress test (PROC) - this is preop requireme nt for abnormal EKG. upcoming April JENNA. [address] (Cardiology & Emg), [address] [place] [address] [address] [place] [address], [phone], 05/30/2025 05:15:57 Surgeries None recorded. Imaging MRI, lumbar spine, w/o contrast 2023 024 [facility] (Imaging), [address] [place] [address], [id number], 10/09/2024 16:40:30 XR, lumbosacr al spine 2023 024 [facility] (Imaging), [address] [place] [address], [id number], 09/04/2024 10:32:34 XR, hip, unilatera l, 2 or 3 view 2023 024 [facility] (Imaging), [address] [place] [address], [phone], 03/10/2025 12:29:16 MAMMO, screening , digital, bilateral 2023 024 [facility] (Imaging), [address] [place] [address], [phone], 03/20/2025 11:59:45 XR, chest, 2 view 2023 024 [facility] (Imaging), [address] [place] [address], [id number], 07/23/2024 15:09:33 XR, shoulder, 2 or more view 2023 024 [facility] (Imaging), [address] [place] [address], [id number], 03/12/2024 12:45:27 XR, knee, 3 view 2023 024 [facility] (Imaging), [address] [place] [address], [id number], 03/12/2024 12:44:02 Medication Orders Medrol (Rolando) 4 mg tablets in a dose pack 2023 025 [facility][id number], [address] [facility], [place], [place], [id number], 11/26/2024 18:09:10 cyclobenz aprine 10 mg tablet 2023 025 [facility] #[id number], [address], [place], [place], [id number], 03/10/2025 12:18:58 buspirone 5 mg tablet 2023 [facility] #[id number], [address], [place], [place], [id number], 11/10/2024 18:16:49 prednison e 20 mg tablet 2023 [facility] #[id number], [address], [place], [place], [id number], 09/03/2024 16:00:54 Patient TargetsNo targets recorded. Patient Instructions Encounter Date Encounter Id Patient Instructions Last Modified By Organization Details Last Modified Time 07/23/2024 [id number] A healthy lifestyle: care instructions Not available 07/23/2024 10:39:53 09/03/2024 [id number] low back pain: exercises Not available 09/03/2024 16:20:38 03/10/2025 [id number] A healthy lifestyle: care instructions Not available [...] 80NG/m L low Vitam in D, 25 [place] xy 20.7 (L) 30 - 80 ng/mL 03/06 1:03 PM CDT [facility] Not Available [...] 107 mmol/ L 03/06 12:46 PM CDT [facility] Not Available Not Available 03/09/2025 12:12:58 03/06/20 25 03/06/2025 Compr ehens tenisha metab olic 1999 panel - Serum or Plasm a carbon dioxide, total [moles/volum e] in serum or plasma 26 mmol/ L low: 22mmol /Lhigh : 29mmol /L CO2 26 22 - 29 mmol/ L 03/06 12:46 PM CDT [facility] Not Available Not Available 03/09/2025 12:12:58 03/06/2003/06/2025 Compr ehens tenisha metab olic 1999 panel - Serum or Plasm a calcium [mass/volume ] in serum or plasma 8.9 mg/dL low: 8.4mg/ dLhigh : 10.4mg /dL Calci um 8.9 8.4 - 10.4 mg/dL 03/06 12:46 PM CDT [facility] Not Available Not Available 03/09/2025 12:12:58 03/06/2003/06/2025 Compr ehens tenisha metab olic 1999 panel - Serum or Plasm a anion gap in blood by calculation 7 mmol/ L low: 6mmol/ Lhigh: 16mmol /L Anion Gap 7 6 - 16 mmol/ L 03/06 12:46 PM CDT [facility] Not Available Not Available 03/09/2025 12:12:58 03/06/20 25 03/06/2025 Compr ehens tenisha metab olic 1999 panel - Serum or Plasm a urea nitrogen [mass/volume ] in serum or plasma 25 mg/dL low: 7mg/dL high: 26mg/d L BUN 25 7 - 26 mg/dL 03/06 12:46 PM CDT [facility] Not Available Not Available 03/09/2025 12:12:58 03/06/20 25 03/06/2025 Compr [employer] tenisha metab olic 1999 panel - Serum or Plasm a creatinine [mass/volume ] in serum or plasma 0.75 mg/dL low: 0.57mg /dLhig h: 1.11mg /dL Creat inine 0.75 0.57 - 1.11 mg/dL 03/06 12:46 PM CDT [facility] Not Available Not Available 03/09/2025 12:12:58 03/06/20 25 03/06/2025 Compr [employer] tenisha metab olic 1999 panel - Serum or Plasm a alkaline phosphatase [enzymatic activity/vol ume] in serum or plasma 104 U/L low: 40U/Lh igh: 150U/L Alkal ine Phosp hatas e 104 40 - 150 U/L 03/06 12:46 PM CDT [facility] Not Available Not Available 03/09/2025 12:12:58 03/06/20 25 03/06/2025 Compr [employer] [place] tenisha metab olic 1999 panel - Serum or Plasm a alanine aminotransfe rase [enzymatic activity/vol ume] in serum or plasma 25 U/L low: 6U/Lhi gh: 57U/L ALT 25 6 - 57 U/L 03/06 12:46 PM CDT [facility] Not Available Not Available 03/09/2025 12:12:58 03/06/20 25 03/06/2025 Compr [employer] [place] [facility] [employer] olic 1999 panel - Serum or Plasm a aspartate aminotransfe rase [enzymatic activity/vol ume] in serum or plasma 26 U/L low: 10U/Lh igh: 48U/L AST 26 10 - 48 U/L 03/06 12:46 PM CDT [facility] Not Available Not Available 03/09/2025 12:12:58 03/06/20 25 03/06/2025 Compr [employer] [place] tenisha metab olic 1999 panel - Serum or Plasm a protein [mass/volume ] in serum or plasma 6.6 text: 6.4 - 8.3 gm/dL Prote in Total 6.6 6.4 - 8.3 gm/dL 03/06 12:46 PM CDT [facility] Not Available Not Available 03/09/2025 12:12:58 03/06/20 25 03/06/2025 Compr Chrys[employer] tenishaMeiyou olic 1999 panel - Serum or Plasm a albumin [mass/volume ] in serum or plasma 3.6 text: 3.4 - 5.0 gm/dL Album in 3.6 3.4 - 5.0 gm/dL 03/06 12:46 PM CDT [facility] Not Available Not Available 03/09/2025 12:12:58 03/06/2003/06/2025 Compr [employer] 1999 panel - Serum or Plasm a bilirubin.to galileo [mass/volume ] in serum or plasma 0.4 mg/dL low: 0.2mg/ dLhigh : 1.2mg/ dL Bilir ubin Total 0.4 0.2 - 1.2 mg/dL 03/06 12:46 PM CDT [facility] Not Available Not Available 03/09/2025 12:12:58 03/06/2003/06/2025 Compr Chrysallis tenisha [employer] 1999 panel - Serum or Plasm a glomerular filtration rate [volume rate/area] in serum, plasma or blood by creatinine-b ased formula (CKD-epi 2020)/1.73 sq M 88 text: >=90 mL/min /1.73 m2 low eGFR by CKD-E PI 88 (L) >=90 mL/mi n/1.7 3 m2 03/06 12:46 PM CDT [facility] Not Available Not Available 03/09/2025 12:12:58 03/06/2003/06/2025 Compr Chrysallis tenisha [employer] 2000 panel - Serum or Plasm a interpretati [...] Auto Diffe henrique ahumada panel - Blood erythrocytes [#/volume] in blood by automated count 4.5 text: 3.90 - 5.20 x10e12 /L RBC Count 4.50 3.90 - 5.20 x10E1 2/L 03/06 12:28 PM CDT [facility] Not Available Not Available 03/09/2025 12:12:58 03/06/2003/06/2025 CBC W Auto Diffe henrique ahumada panel - Blood hemoglobin [mass/volume ] in blood 12.9 g/dL low: 11.9g/ dLhigh : 15.8g/ dL Hemog lobin 12.9 11.9 - 15.8 g/dL 03/06 12:28 PM CDT [facility] Not Available Not Available 03/09/2025 12:12:58 03/06/20 25 03/06/2025 CBC W Auto Diffe henrique ahumada panel - Blood hematocrit [volume fraction] of blood by automated count 40.4 % low: 34.8%h igh: 46.1% Hemat ocrit 40.4 34.8 - 46.1 % 03/06 12:28 PM CDT [facility] Not Available Not Available 03/09/2025 12:12:58 03/06/2003/06/2025 CBC W Auto Diffe henrique ahumada panel - Blood MCV [entitic mean volume] in red blood cells by automated count 89.8 fL low: 80fLhi gh: 98fL MCV 89.8 80.0 - 98.0 fL 03/06 12:28 PM CDT [facility] Not Available Not Available 03/09/2025 12:12:58 03/06/20 25 03/06/2025 CBC W Auto Diffe henrique al panel - Blood MCH [entitic mass] by automated count 28.7 pg low: 26.7pg high: 33.6pg MCH 28.7 26.7 - 33.6 pg 03/06 12:28 PM CDT [facility] Not Available Not Available 03/09/2025 12:12:58 03/06/20 25 03/06/2025 CBC W Auto Diffe henrique al panel - Blood MCHC [entitic mass/volume] in red blood cells by automated count 31.9 g/dL low: 31.7g/ dLhigh : 36.3g/ dL MCHC 31.9 31.7 - 36.3 g/dL 03/06 12:28 PM CDT [facility] Not Available Not Available 03/09/2025 12:12:58 03/06/20 25 03/06/2025 CBC W Auto Diffe henrique ahumada panel - Blood erythrocyte [distwidth] in red blood cells by automated count 13.6 % low: 11.3%h igh: 14.8% RDW-C V 13.6 11.3 - 14.8 % 03/06 12:28 PM CDT [facility] Not Available Not Available 03/09/2025 12:12:58 03/06/20 25 03/06/2025 CBC W Auto Diffleroy ahumada panel - Blood platelets [#/volume] in blood by automated count 271 text: 150 - 420 x10e9/ L Plate let Count 271 150 - 420 x10E9 /L 03/06 12:28 PM CDT [facility] Not Available Not Available 03/09/2025 12:12:58 03/06/20 25 03/06/2025 CBC W Auto Diffe henrique ahumada panel - Blood platelet [entitic mean volume] in blood by automated count 9.3 fL low: 7.8fLh igh: 11.4fL MPV 9.3 7.8 - 11.4 fL 03/06 12:28 PM CDT [facility] Not Available Not Available 03/09/2025 12:12:58 03/06/20 25 03/06/2025 CBC W Auto Diffe henrique al panel - Blood neutrophils/ leukocytes in [...] - 7.50 x10e9/ L Neutr ophil Absol ewiiaapaayp 5.45 1.60 - 7.50 x10E9 /L 03/06 12:28 PM CDT [facility] Not Available Not Available 03/09/2025 12:12:58 03/06/20 25 03/06/2025 CBC W Auto Diffe renti al panel - Blood lymphocytes [#/volume] in blood by automated count 0.73 text: 1.00 - 4.40 x10e9/ L low Lymph ocyte Absol ewiiaapaayp 0.73 (L) 1.00 - 4.40 x10E9 /L 03/06 12:28 PM CDT [facility] Not Available Not Available 03/09/2025 12:12:58 03/06/20 25 03/06/2025 CBC W Auto Diffe renti al panel - Blood monocytes [#/volume] in blood by automated count 0.73 text: 0.15 - 1.00 x10e9/ L Monoc yte Absol ewiiaapaayp 0.73 0.15 - 1.00 x10E9 /L 03/06 12:28 PM CDT [facility] Not Available Not Available 03/09/2025 12:12:58 03/06/20 25 03/06/2025 CBC W Auto Diffe renti al panel - Blood eosinophils [#/volume] in blood 0.14 text: 0.00 - 0.60 x10e9/ L Eosin ophil Absol ewiiaapaayp 0.14 0.00 - 0.60 x10E9 /L 03/06 12:28 PM CDT [facility] Not Available Not Available 03/09/2025 12:12:58 03/06/20 25 03/06/2025 CBC W Auto Diffe renti al panel - Blood basophils [#/volume] in blood by automated count 0.04 text: 0.00 - 0.13 x10e9/ L Basop hil Absol ewiiaapaayp 0.04 0.00 - 0.13 x10E9 /L 04/18 /2025 12:28 PM CDT [facility] Not Available Not Available 03/09/2025 12:12:58 03/06/2003/06/2025 CBC W Auto Diffe renti al panel - Blood interpretati on and review of laboratory results ABNORM AL Not Available Not Available 12:12:58 03/12/20 24 01/28/2024 XR, knee, 3 view No observ ation record ed. [address] [address], [place], [address], 03/12/2024 13:49:31 03/12/20 24 01/28/2024 XR, shoul edy, 2 or more view No observ ation record ed. [address] [address], [place], [address], 03/12/2024 13:48:59 07/23/20 24 07/23/2024 XR, chest , 2 view No observ ation record ed. [address] [address], [place], [address], 08/08/2024 16:02:35 09/04/20 24 09/03/2024 XR, lumbo sacra l spine No observ ation record ed. [address] [address], [place], [address], 09/04/2024 17:19:32 10/09/20 24 10/09/2024 MRI, lumba r spine , w/o contr ast No observ ation record ed. [address] [address], [place], [address], 10/12/2024 12:54:00 03/10/2009/03/2024 XR, lumbo sacra l spine No observ ation record ed. [address] [address], [place], [address], 03/19/2025 14:12:32 03/10/20 25 09/03/2024 XR, hip, unila teral , 2 or 3 view No observ ation record ed. [facility] [address], [place], [address], 03/19/2025 14:12:33 03/25/2003/25/2025 ambreen can cardi olite stres s test (PROC ) No observ ation record ed. [facility] ([facility]iology & [facility]) [address] [facility] [address], [place], [address], 04/26/2025 21:33:12 04/17/2003/25/2025 ambreen can cardi olite stres s test (PROC ) No observ ation record ed. [facility] ([facility]iology [facility]) [address] [facility] [address], [place], [address], 04/17/2025 14:22:54 Result Notes None recorded. Problems Name Problem SNOMED Code Status Onset Date Resolution Date Notes Provider Name and Address Organization Details Recorded Time Benign essential hypertensio n 7461278 Active 2023 Gail Con[place] null, [place] - [facility] 4 16:03:28 Mixed anxiety and depressive disorder 591958708 Active 2023 Gail [place] [facility] 4 16:03:38 Hyperlipide jameson 62941502 Active 2023 Gail [place] [facility] 4 16:03:49 Blood glucose outside reference range 362155562 Active 2023 GUNNAR Lorenzo Attn: Emma torres,[address] [facility], [place], [address], [place] - [facility] 4 10:30:28 Body mass index 25-29 - overweight 381873957 Active 2023 GUNNAR Lorenzo Attn: Emma torres,[address] [facility], [place], [address], [place] [facility] 4 10:30:29 Overweight 386764776 Active 2023 GUNNAR Lorenzo Attn: Accountin g,[address] [facility], [place], [address], [place] [facility] 4 10:30:30 Long-term drug therapy Active 2023 GUNNAR Lorenzo Attn: Accountin g,[address] [facility], [place], [address], [place] [facility] 4 10:30:31 Adult health examination Active 2023 GUNNAR Lorenzo Attn: Accountin g,[address] [facility], [place], [address], [place] [facility] 4 10:30:36 Right side sciatica 7226244153826 01 Active 2023 GUNNAR Lorenzo Attn: Accountin g,[address] [facility], [place], [address], [place] [facility] 4 23:09:51 Gastroesoph ageal reflux disease without esophagitis 319493843 Active 2023 GUNNAR Lorenzo Attn: Accountin g,[address] [facility], [place], [address], [place] [facility] 4 23:11:01 Pain of left hip joint 4430250183239 00 Active 2023 GUNNAR Lorenzo Attn: Accountin g,[address] [facility], [place], [address], [place] [facility] 4 11:46:29 Left side sciatica 4130016628076 04 Active 2023 GUNNAR Lorenzo Attn: Accountin g,[address] [facility], [place], [address], [place] [facility] 4 11:46:30 Lumbar radiculopat hy 393401244 Active 2023 GUNNAR Lorenzo Attn: Accountin g,[address] [facility], [place], [address], [place] [facility] 4 11:46:44 Prediabetes 129044446 Active 2024 GUNNAR Lorenzo Attn: Emma torres,[address] [facility], [place], [address], [facility] 5 12:33:00 Electrocard iogram abnormal 959795254 Active 2024 GUNNAR Lorenzo Attn: Emma torres,[address] [facility], [place], [address], [facility] 5 01:01:04 Problem Notes None recorded. Procedures Surgical History Date Name Laterality Status Provider Name and Address Organization Details Recorded Time Hernia Repair completed Patricia Crawford MA [facility] 01/22/2024 15:15:02 Total hysterectomy completed Patricia Crawford MA [facility] 01/22/2024 15:15:09 Imaging Results None recorded. Procedure Notes None recorded. Medical Equipment None [...] TAKE 1 TABLET BY MOUTH EVERY DAY 2024 active Not Available Not Available Not Avai lable fluoxetine 60 mg tablet TAKE 1 TABLET BY MOUTH EVERY DAY active Not Available Not Available No t Available Paxlovid 300 mg (150 mg x 2)-100 mg tablets in a dose pack TK 2 NIRMATREL VIR TS AND 1 RITONAVIR T TOGETHER PO TWICE DAILY FOR 5 DAYS 09/03 completed Not Available Not Available Not Available Vitals Date Recorded Systolic And Diastolic Provider Name and Address Organization Details Last Updated DateTime 01/22/2024 110/80 mm[Hg] GUNNAR Lorenzo Attn: Accounting,[address] [place], [address], [facility] 01/22/2024 15:49:38 Date Recorded Body weight Heart rate Respiratory rate Oxygen saturation Oxygen saturation in Arterial blood by Pulse oximetry Body mass index (BMI) Body height Systolic And Diastolic Provider Name and Address Organization Details Last Updated DateTime 4 44634.4 5 g 70 /min 18 /min 97 % 97 % 28.5 kg/m2 154.94 cm 108/73 mm[Hg] Patricia Crawford MA [facility] 14:55:05 Date Recorded Respiratory rate Systolic And Diastolic Provider Name and Address Organization Details Last Updated DateTime 03/10/2025 16 /min 130/84 mm[Hg] GUNNAR Lorenzo Attn: Accounting, [place], [address], [facility] 03/10/2025 12:50:15 Date Recorded Body height Body mass index (BMI) Body weight Oxygen saturation Oxygen saturation in Arterial blood by Pulse oximetry Heart rate Systolic And Diastolic Provider Name and Address Organization Details Last Updated DateTime 5 154.94 cm 28.3 kg/m2 32915.8 6 g 98 % 98 % 69 /min 116/82 mm[Hg] Patricia Crawford MA [facility] 12:20:50 Date Recorded Respiratory rate Systolic And Diastolic Provider Name and Address Organization Details Last Updated DateTime 07/23/2024 18 /min 130/80 mm[Hg] GUNNAR Lorenzo Attn: Accounting,[address] [facility], [place], [address], [facility] 07/23/2024 10:38:58 Date Recorded Body height Body mass index (BMI) Body weight Oxygen saturation Oxygen saturation in Arterial blood by Pulse oximetry Heart rate Systolic And Diastolic Provider Name and Address Organization Details Last Updated DateTime 154.94 cm 28.5 kg/m2 84871.7 4 g 98 % 98 % 60 /min 140/88 mm[Hg] Patricia Crawford MA [facility] 10:10:30 Date Recorded Body height Body mass index (BMI) Body weight Respiratory rate Oxygen saturation Oxygen saturation in Arterial blood by Pulse oximetry Heart rate Systolic And Diastolic Provider Name and Address Organization Details Last Updated DateTime 154.94 cm 29.1 kg/m2 66837.2 2 g 18 /min 97 % 97 % 60 /min 126/82 mm[Hg] Patricia Crawford MA [facility] 16:03:01 Social History Question Answer Notes LastModified by Organizat ion Details LastModified Time Tobacco Smoking Status Former Smoker Patricia Crawford MA null, [facility] 01/22/2024 14:54:02 Do You Have An Advance Directive? No Information not available 07/23/2024 Are You Blind Or Do You Have [...] Smoked Tobacco? 30 Information not available 01/22/2024 Sex: Female Functional Status Question Answer Note LastModified by Organizat ion Details LastModified Time Do you use any illicit or recreational drugs? No Information not available 01/22/2024 Do you or have you ever used any other forms of tobacco or nicotine? No Information not available 01/22/2024 What is your level of alcohol consumption? Occasional Information not available 01/22/2024 Are you able to care for yourself? Yes Information n ot available 01/22/2024 What is your exercise level? None Information not available 01/22/2024 Mental Status Question Answer Note LastModified by Organization D etails LastModified Time Do you feel stressed (tense, restless, nervous, or anxious, or unable to sleep at night)? [id number] Information not available 01/22/2024 Family History Relationship Description Onset Age of [...] Response Coronary Artery Disease N Other N High Blood Pressure Y Atrial Fibrillation N Kidney or Bladder Problems N Thyroid Problems N GI Problems N Depression N COPD N Blood Clots N Skin Problems N Anemia N Heart Attack ([place]) N Anxiety Disorder Y Diabetes N Muscle, Joint, or Bone Problems Y Seizures/Epilepsy N Acid Reflux (GERD) N Cancer N Stroke N Asthma N Allergies N High Cholesterol N Hepatitis N Liver Disease N Headaches N Heart Failure N Osteoporosis N Gynecological History Statement/Question Response Menses Monthly N Current Control Method Hysterectom y Obstetrics History GPAL:G 2 P 2 0 0 2 Type Value Multiple Births 0 Full Term 2 Induced 0 Spontaneous 0 Premature 0 Living 2 Ectopics 0 Total 2 Immunizations Vaccine Type Date Status Note Provider Nam e and Address Organization Details Recorded Time COVID-19, [...] LNP-S, PF, 50 mcg/0.5 mL 09/01/2023 completed Patricia [place], [place] [facility] 03/10/2025 12:18:00 Influenza, split virus, quadrivalent, PF 09/13/2023 completed Patricia [place] [facility] 03/10/2025 12:18:00 Past Encounters Encounter ID Performer Location Encounter Start Date Encounter Closed Date Diagnosis/Indication Diagnosis SNOMED-CT Code Diagnosis ICD10 Code Diagnosis Note [id number] Teofilo Jeter MD [facility] [address] [place] [address] 01/22/2024 14:39:52 01/22/2024 16:03:05 Benign essential hypertension 5734791 I10 stable on losartan 100mg daily. and HCTZ 12.5mg daily. Hyperlipidemia 72623741 E78.5 on statin therapy , crestor 20mg, and due for lipid panel Mixed anxi ety and depressive disorder 571696331 F41.8 stable on fluoxetine 60mg daily. Long-term drug therapy 332645465 Z79.899 routine cbc, cmp, b12, folate and TFTs ordered Diabetes m ellitus screening 085758945 Z13.1 annual a1c screening due Pain of le ft shoulder joint 2857862658 2873907 M25.512 check xray left shoulder joint Pain of ri ght knee joint 4955932488 00772 M25.561 check xray right knee [id number] Teofilo Jeter MD [facility] [address] [place] [address] 07/23/2024 09:55:49 07/23/2024 11:04:04 Body mass index 25-29 - overweight 402150723 Z68.28 BMI is 28.5 Overweight 055590374 E66 .3 Benign ess ential hypertension 9011759 I10 stable on losartan 100mg daily. and HCTZ 12.5mg daily. Mixed anxi ety and depressive disorder 072022467 F41.8 some anxiety spike currently; on fluoxetine 60mg daily. Add BuSpar 5 mg twice daily for tighter anxiety control Hyperlipidemia 98158089 E78.5 on statin therapy , crestor 20mg, and due for lipid panel Long-term drug therapy 834773413 Z79.899 routine cbc, cmp, b12, folate and TFTs ordered for February 05, 2025 Adult heal th examination 435184917 Z00.01 well exam completed Blood gluc ose outside reference range [id number] R73.09 Following A1c which is 5.8% currently on exam. Repeat in January Screening mammography 24 299104 Z12.31 Annual mammogram is ordered Wheezing [id number] R06.2 Wheezing appreciate d on exam today with some acute respirator y symptoms that presented in the last 2 days. She was originally negative on COVID test and has been encouraged to repeat again tomorrow. Check a chest x-ray today Gastroesop hageal reflux disease without esophagitis [id number] K21.9 Stable on PPI therapy continue without changes Right side sciatica 3202 076970 91703 M54.31 Start prednisone 40 mg daily x5 days to calm down sciatic nerve inflammati on [id number] Teofilo Jeter MD [facility] [employer] [address] [employer] [id number] 09/03/2024 15:45:40 09/03/2024 16:22:23 Lumbar radiculopathy 229434656 M54.16 Check baseline x-ray of the lumbosacra l spine and then proceed with MRI of the lumbar spine to evaluate disc spacing and nerve impingemen t Left side sciatica 72824 32850 33172 M54.32 Start Medrol Dosepak, Flexeril 10 mg 3 times a day as needed and home low back exercises Pain of le ft hip joint [id number] 90413 M25.552 Check baseline x-ray of the left hip [id number] Teofilo Jeter MD [facility] [employer] [address] [employer] [id number] 1 03/10/2025 12:07:55 03/10/2025 14:00:35 Body mass index 25-29 - overweight 485266538 Z68.28 BMI is 28.3 Overweight 229189998 E66 .3 Benign ess ential hypertension 9209246 I10 stable on losartan 100mg daily. and HCTZ 12.5mg daily. Blood pressure is 130/84 Hyperlipidemia 63867228 E78.5 on statin therapy , crestor 20mg Mixed anxi ety and depressive disorder 683868302 F41.8 Stable on BuSpar 10 mg twice daily and fluoxetine 60 mg daily Long-term drug therapy 982604797 Z79.899 Prediabetes 575214153 R7 3.03 5.8% A1c January of 2024 Gastroesop hageal reflux disease 293325574 K21.9 Stable on pantoprazo le 40 mg daily continue without changes Vitamin D deficiency 347 19899 E55.9 On high-dose vitamin-D supplement now Electrocar diogram abnormal 519711048 R94.31 EKG is abnormal that was ordered by the surgeon preoperati navin, we will send for Lexiscan Cardiolite stress testing for preop clearance needs. Possible ischemia patterns possible old infarct pattern on EKG Health Concerns Section Related Observation LastModified by Organization Detai ls LastModified Time None Recorded Concern Status LastModified by Organization Details LastModified Time None Recorded Advance Directives Directive N: Payers Insurance Date Sequence Insurance Name Policy Number Policy Kaufman Covered Member ID Kaufman Member ID Guarantor Name 01/22/2024 1 *SELF PAY* Jeannette Raman 03/25/2025 1 [employer] (MEDICARE REPLACEMENT/ ADVANTAGE - PPO) [id number] Rachel Raman [id number] Rachel Raman 03/10/2025 1 UMR [id number] Rachel Raman [id number] Rachel Raman Notes Date Note Type Note [...] throat pain GUNNAR Lorenzo Attn: Accounting ,[address] [place], [address] , [place] - [facility] 01/22/2024 23:22:50 024 [...] throat pain GUNNAR Lorenzo Attn: Accounting ,[address] [place], [address] , [facility] 07/27/2024 23:11:41 024 text/ht ml Musculoskeletal PainReported [...] hip joint. GUNNAR Lorenzo Attn: Accounting ,[address] [place], [address] , [facility] 09/21/2024 11:46:58 025 text/ht ml Anxiety/DepressionReported bypatient.Quality:symptoms [...] throat pain GUNNAR Lorenzo Attn: Accounting ,[address] [place], [address] , [facility] 03/23/2025 01:01:28 OBGyn Episode No OBEpisode recorded.
--- OUTSIDE RECORDS SUMMARY | 2025-06-03 15:57 | XMS_ITS | Clinical Summary ---
Author Organization [facility] Address [address] [place] [address] Care Team Providers Care Teller Supervisor Name Role Phone Dilcia Garcia Primary Care Pr ovider Source Comments [facility],non-owned Affiliates and Associated Physician Practices is amultiple site organization consisting of ambulatory clinics and hospital sitesin [place], [place], [place] and [place]. This disclosure is being madepursuant to the Care Everywhere program and may not contain all information available regarding this patient. Last updated 18.[facility] Allergies No known active allergies Medications * Be aware that medications may not be up to date on this document. Alwaysverify current medications with the patient. hydroCHLOROthi azide 12.5 MG Take 1 (one) tablet by mouth once daily 5 Active losartan (Cozaar) 100 MG tablet Take 1 (one) tablet by mouth once daily 5 Active rosuvastatin (Crestor) 20 MG tablet Take 1 (one) tablet by mouth once daily 5 Active pantoprazole EC (Protonix) 40 MG tablet Take 1 (one) tablet by mouth once daily 5 Active acetaminophen (Tylenol) 500 MG capsule Take 2 (two) capsules by mouth 3 times daily Take 3x/day for 10 days, then as needed for pain 5 Active aspirin EC (Ecotrin) 81 MG tablet Take 1 (one) tablet by mouth 2 times daily for 42 days Take for blood clot prevention for 6 weeks 84 tablet 05/08/2025 1:45 PM CDT 5 06/19/20 25 Active celecoxib (CeleBREX) 200 MG capsule Take 1 (one) capsule by mouth 2 times daily for 42 days 84 capsule 05/08/2025 1:45 PM CDT 5 06/19/20 25 Active oxyCODONE, immediate release, (Roxicodone) 10 MG tabletIndicati ons:Postoperat tenisha pain Take 0.5 (one-half) tablet to 1 (one) tablet by mouth every 4 hours as needed for Pain 42 tablet 05/08/2025 1:45 PM CDT 5 Active diclofenac sodium EC (Voltaren) 75 MG tablet Take 1 (one) tablet by mouth once daily 5 05/08/20 25 Discontinu ed(Clinica l Decision) FLUoxetine (PROzac) 60 MG tablet Take 1 (one) tablet by mouth once daily 5 05/07/20 25 Discontinu ed(List Clean-Up) busPIRone (Buspar) 10 MG tablet Take 1 (one) tablet by mouth once daily 05/08/20 25 Discontinu ed(Tx Complete) busPIRone (Buspar) 15 MG tablet 05/08/20 25 Discontinu ed(List Clean-Up) Active Problems Problem Noted Date Diagnosed Date Arthritis of left hip 05/07/2025 Anemia 02/23/2025 Bursitis of hip 02/23/2025 Dyspnea [...] with abnormal findings 07/23/2024 Overweight 07/23/2024 Other half-way (current) drug therapy Hyperlipidemia 01/21/2024 Abnormal serum total protein level 07/24/2022 Pain in joint of right shoulder 05/02/2022 Benign essential hypertension 05/01/2022 Decreased hearing 05/01/2022 Mixed anxiety and depressive disorder 05/01/2022 Resolved Problems Problem Noted Date Diagnosed Date Resolved Date Cough 02/23/2025 03/23/2025 Encounters Date Type Department Care Team Description 06/01/2025 2:45 PM CDT Ancillary Procedure [facility] - Radiology [address] [place] [id number] Chan Sandoval IV, MD S/P total left hip arthroplasty, DOS 05/07/25; S/P total left hip arthroplasty 06/01/2025 2:40 PM CDT Office Visit [facility] [address] [place] [address], [address] [place] [phone] Chan Sandoval IV, MD S/P total left hip arthroplasty, DOS 05/07/25 (Primary Dx) 05/07/2025 7:29 AM CDT Anesthesia Event [facility] - Perioperative Surgery [address] [place] [address] Chuckie Cramer MD 05/07/2025 7:15 AM CDT - 05/07/2025 9:59 AM CDT Surgery [facility] - Perioperative Surgery [address] [place] [address] Chan Sandoval IV, MD LEFT TOTAL ANTERIOR HIP ARTHROPLASTY 05/07/2025 6:50 AM CDT - 05/08/2025 3:30 PM CDT [facility] [address] [place] [address] Chan Sandoval IV, MD Surgery General Discharge Disposition: Home Health Care [facility] 05/07/2025 Refill [facility] [address] [place] [address] Chan Sandoval IV, MD MEDICATION REFILL 05/07/2025 Travel 03/06/2025 11:40 AM CDT - 03/06/2025 11:59 PM CDT Hospital Encounter [facility] [address] [facility] [address] [place] [address] Chan Sandoval IV, MD Discharge Disposition: Home or Self Care 03/06/2025 [facility] [address] [place] [address] Willa Avila APRN-CNP 03/06/2025 Travel from Last 3 Months Family History Medical History Relation Name Comments Heart Failure Father Arthritis - Rheumatoid Mother Hypertension Mother Hypercholesterolemia Sister Relation Name Status Comments Father Mother Sister Social History Tobacco Use Types Packs/Day Years Used Date Smoking Tobacco: Never Smokeless Tobacco: Never Alcohol Use Standard Drinks/Week Comments Yes 0.4 (1 standard drink = 0.6 oz p ure alcohol) occasionaly AUDIT-C Answer Date Recorded Q1: How often do you have a drink containing alcohol? Monthly or less 05/07/2025 Q2: How many drinks containi ng alcohol do you have on a typical day when you are drinking? Patient does not drink Q3: How often do you have si x or more drinks on one occasion? Never 05/07/2025 PHQ-2 Answer Date Recorded Patient Health Questionnaire-2 Score 0 02/19/2025 Hunger Vital Sign Answer Date Recorded Within the past 12 months, y ou worried that your food would run out before you got the money to buy more. Never true 05/08/20 25 Within the past 12 months, t he food you bought just didn't last and you didn't have money to get more. Never true 05/08/2025 Comments No Sex and Gender Information Value Date Recorded Sex Assigned at Not on file Legal Sex Female 2:01 PM BARREL [employer] Gender Identity Not on file Sexual Orientation Not on file Last Filed Vital Signs Vital Sign Reading Time Taken Comments Blood Pressure 104/53 05/08/2025 9:47 AM CDT Pulse 76 05/08/2025 9:47 AM CDT Temperature 36.6 C (97.8 F) 05/08/2025 3:43 AM CDT Respiratory Rate 17 05/08/2025 3:43 AM CDT Oxygen Saturation 96% 05/08/2025 9:47 AM CDT Inhaled Oxygen Concentration - - Weight 70.4 kg (155 lb 3.2 oz) 05/07/2025 7:02 A M CDT Height 154.9 cm (5' 1) 05/07/2025 7:02 AM CDT Body Mass Index 29.32 05/07/2025 7:02 AM CDT Plan of Treatment Upcoming Encounters Date Type Department Care Team (Late st Contact Info) Description 06/22/2025 11:30 AM CDT Office Visit [facility] [address] [facility], [address] [phone] Karen Montana PA-C [address] [place] [address] [place] [phone] 08/03/2025 3:00 PM CDT Office Visit [facility] [address] [facility], [facility] [address] [place] [address] Karen Montana PA-C [address] [place] [address] [place] [phone] Health Maintenance Due Date Last Done Comments COLOGUARD (AGES 45-75) - COLON CA SCREENING 1960 COLON MONITORING 1960 COLONOSCOPY - COLON CA SCREENING 1960 CT COLONOGRAPHY - COLON CA SCREENING 1960 Colorectal Cancer Screening 1960 FIT - COLON CA SCREENING 1960 FLEX SIG - COLON CA SCREENING 1960 MAMMOGRAM 1960 HIV SCREENING 1975 HEPATITIS C SCREENING 12/31/1977 DTAP/TDAP/TD VACCINES (1 - Tdap) 1979 PAP SMEAR 1981 PNEUMOCOCCAL VACCINE 50+ (1 of 1 - PCV) 2010 ZOSTER VACCINE (1 of 2) 2010 COVID-19 VACCINE (5 - season) 2024 08/04/2022, 09/23/2021, 11/29/2020, Additional history exists MEDICARE AWV CALENDAR YEAR 2024 INFLUENZA VACCINE (#1) 2025 , 09/11/2019, 08/19/2016, Additional history exists SCREENING FOR DIABETES 03/06/2028 03/06/2025 Respiratory Syncytial Virus (RSV) Vaccine Pt: or over 60 yrs (1 - 1-dose 75+ series) 2035 DEPRESSION SCREENING Completed 01/19/2025, 05/05/20 BONE DENSITY TESTING Completed 02/16/2025 HEPATITIS B [...] A/C/Y/W VACCINE Aged Out No longer eligible based on patient's age to complete this topic Medical Devices Implanted Type Area Clerical Aide Device Identifier Shelf Expiration Date Model / Serial / Lot Shell Actb 48mm Hip 3 Hl Clr Cd Osseoti Implanted:Qty : 1 on 05/07/2025 by Chan Sandoval IV, MD at [facility] Left: Hip [employer] 01/26/2035 [id number] / / [id number] Screw 6.5mm 40mm Actb Dagoberto Slf-Tap Trlg Implanted:Qty : 1 on 05/07/2025 by Chan Sandoval IV, MD at [facility] Left: Hip [employer] 04/07/2034 [id number] / / [id number] Lit Liner Actb G7 +5mm C Ofst 32mm Lngvt Implanted:Qty : 1 on 05/07/2025 by Chan Sandoval IV, MD at [facility] Left: Hip [employer] 08/23/2025 [id number] BILL ONLY / / [id number] Stem Fem 136mm Hip 1 Lat Ofst Intgr-+ Implanted:Qty : 1 on 05/07/2025 by Chan Sandoval IV, MD at [facility] Left: Hip [employer] 10/12/2028 [id number] / / [id number] Head Fem +4 11/01 Tpr 32mm Hip Oxnm Sng Implanted:Qty : 1 on 05/07/2025 by Chan Sandoval IV, MD at [facility] Left: Hip [employer] 04/08/2034 [id number] / / [id number] Explanted Type Area Clerical Aide Device Identifier Shelf Expiration Date Model / Serial / Lot Pin Hlf 255mm 5mm Jtx Lng Orth Ss 45mm Explanted:Qty: 1 on 05/07/2025 by Chan Sandoval IV, MD at [facility] Left: Hip [employer] [id number] / / Procedures Procedure Name Priority Date/Time Associated Diagnosis Comments XR HIP LEFT 2VW OR MORE Routine 06/01/2025 2:41 PM CDT S/P total left hip arthroplasty CARDIAC EKG ORDER 05/11/2025 6:1 6 PM CDT CARDIAC STRESS TEST ORDER 05/11/2025 6:16 PM CDT FL DONNA SURGERY Routine 05/07/2025 9:15 AM CDT Arthritis of left hip NEURAXIAL BLOCK Routine 05/07/2025 8:05 AM CDT CO TOTAL HIP REPLACEMENT 05/07/2025 7:15 AM CDT Special Needs S&N ([place]) NOTIFIED-KS EKG 12-LEAD Routine 03/06/2025 12:42 PM CDT Pre-op evaluation VITAMIN D 25-HYDROXY Routine 03/06/2025 12:20 PM CDT Vitamin D deficiency COMPREHENSIVE METABOLIC PANEL Routine 03/06/2025 12:20 PM CDT Pre-op evaluation CBC W AUTO DIFFERENTIAL Routine 03/06/2025 12:20 PM CDT Pre-op evaluation DEXA BONE DENSITY AXIAL SKELETON Routine 02/16/2025 11:20 AM CDT Post-menopausal from Last 3 Months or Most Recently Relevant to Health Maintenance Results * XR Hip Left 2Vw or More (06/01/2025 2:41 PM CDT) Narrative [facility] [address] - 06/01/2025 2:41 PM CDT Please see progress note in Epic for results. us Chan Sandoval IV, MD DIAGNOSTIC IMAGING ORDERABLES Final Result Performing Organization Address [facility] de Phone Number [facility] [place] [address] * CARDIAC STRESS TEST ORDER (05/11/2025 6:16 PM CDT) Narrative 05/11/2025 6:16 PM CDT Ordered by an unspecified provider. us Scanned Document CARDIAC SERVICES ORDERABLES Fin al Result * CARDIAC EKG ORDER (05/11/2025 6:16 PM CDT) Narrative 05/11/2025 6:16 PM CDT Ordered by an unspecified provider. us Scanned Document CARDIAC SERVICES ORDERABLES Fin al Result * FL Donna Surgery (05/07/2025 9:15 AM CDT) Narrative [facility] - 05/07/2025 9:29 AM CDT For details of this study, please see the providers note. us Chan Sandoval IV, MD FLUOROSCOPY ORDERABLES Final R esult Performing Organization Address [facility] de Phone Number [facility] [address] [place] [address] * Neuraxial Block (05/07/2025 8:05 AM CDT) Narrative Shirlene Tamayo APRN-CRNA - 05/07/2025 8:05 AM CDT Shirlene Tamayo APRN-CRNA 05/07/2025 9:56 AM Neuraxial Block Note Pre-Procedure: Procedure Name: Neuraxial Block Patient Location: OR Indications: surgical anesthesia Pre-Anesthetic Checklist: Patient identified, IV Checked, Risks and benefits discussed, Surgical consent verified, Monitors and equipment, Site examined, Pre-op evaluation done, Time-out performed, Informed consent obtained, Questions answered/anesthesia questions answered and Allergies reviewed Anticoagulation/ Anti-thrombosis status confirmed? Yes Supplemental O2: room air Monitors: BP and continuous pluse ox Procedure: Block Type: Spinal Prep: Betadine Sterile Field: mask, cap/hat, sterile established and sterile gloves Approach: midline Spinal Block: Needle Type: spinal needle Needle Gauge: 22 Needle Length: 90 mm Placement Site: L3-4 Number of Attempts: 1 CSF: free flow, aspiration before injection Degree of difficulty: none Procedure Tolerance: tolerated well Sensory Level: T4 Motor Blockade: Yes Position post procedure: supine Vital Signs: Vital signs monitored and stable throughout. See anesthesia record for details. Start Time: 05/07/2025 7:35 AM End Time: 05/07/2025 7:37 AM Total Time: 2 Staff: Anesthesia Provider: Shirlene Tamayo APRN-PULLING UNIT FLOORHAND - performed the procedure Chuckie Cramer MD GENERAL ANESTHESIA ORDERABLE S Edited Result - Final * EKG 12-LEAD (03/06/2025 12:42 PM CDT) Ventricular Rate 64 BPM [facility] Atrial Rate 64 BPM [facility] P-R Interval 152 ms [facility] QRS Duration ms 76 ms [facility] Q-T Interval ms 430 ms [facility] QTC Calculation (Bezet) 443 ms [facility] Calculated P Novi 25 degrees [facility] Calculated R Novi 0 degrees [facility] Calculated T Novi 22 degrees [facility] Interpretation EKG Normal sinus rhythm Cannot rule out Inferior infarct , age undetermined Cannot rule out Anterior infarct , age undetermined No previous ECGs available Confirmed by ALBERTA GREGORY MD ([id number]) on 03/06/2025 5:10:31 PM [facility] 03/06/2025 12:4 2 PM CDT 03/06/2025 5:10 PM CDT Leticia Holt DO ECG ORDERABLES Edited Result - Final [facility] * (ABNORMAL) VITAMIN D 25-HYDROXY (03/06/2025 12:20 PM CDT) Vitamin D, 25 Hydroxy 20.7(L) 30 - 80 ng/mL 03/06/2025 1:03 PM CDT [facility] Blood BLOOD SPECIMEN / Unknown Venipuncture / Unknown 03/06/2025 12:20 PM CDT 03/06/2025 12:25 PM CDT Narrative [facility] - 03/06/2025 1:03 PM CDT Vitamin D Status: Deficiency <20 ng/mL Insufficiency 20-30 ng/mL Sufficiency 30-100 ng/mL Toxicity >100 ng/mL Karen Montana PA-C LAB - CHEMISTRY ORDERABLES Final Result [facility] [address] [place] [address] * (ABNORMAL) CBC W AUTO DIFFERENTIAL (03/06/2025 12:20 PM CDT) WBC 7.1 4.0 - 10.7 x10E9/L 03/06/2025 12:28 PM CDT [facility] RBC Count 4.50 3.90 - 5.20 x10E12/L 03/06/2025 12:28 PM CDT [facility] Hemoglobin 12.9 11.9 - 15.8 g/dL 03/06/2025 12:28 PM CDT [facility] Hematocrit 40.4 34.8 - 46.1 % 03/06/2025 12:28 PM CDT [facility] MCV 89.8 80.0 - 98.0 fL 03/06/2025 12:28 PM CDT [facility] MCH 28.7 26.7 - 33.6 pg 03/06/2025 12:28 PM CDT [facility] MCHC 31.9 31.7 - 36.3 g/dL 03/06/2025 12:28 PM CDT [facility] RDW-CV 13.6 11.3 - 14.8 % 03/06/2025 12:28 PM CDT [facility] Platelet Count 271 150 - 420 x10E9/L 03/06/2025 12:28 PM CDT [facility] MPV 9.3 7.8 - 11.4 fL 03/06/2025 12:28 PM CDT [facility] Neutrophil % 76.4(H) 41.0 - 74.0 % 03/06/2025 12:28 PM CDT [facility] Lymphocyte % 10.3(L) 17.0 - 47.0 % 03/06/2025 12:28 PM CDT [facility] Monocyte % 10.3 3.0 - 11.0 % 03/06/2025 12:28 PM CDT [facility] Eosinophil % 2.0 0.0 - 7.0 % 03/06/2025 12:28 PM CDT [facility] Basophil % 0.6 0.0 - 1.6 % 03/06/2025 12:28 PM CDT [facility] Immature Granulocytes % 0.4 0.0 - 1.0 % 03/06/2025 12:28 PM CDT [facility] Neutrophil Absolute 5.45 1.60 - 7.50 x10E9/L 03/06/2025 12:28 PM CDT [facility] Lymphocyte Absolute 0.73(L) 1.00 - 4.40 x10E9/L 03/06/2025 12:28 PM CDT [facility] Monocyte Absolute 0.73 0.15 - 1.00 x10E9/L 03/06/2025 12:28 PM CDT [facility] Eosinophil Absolute 0.14 0.00 - 0.60 x10E9/L 03/06/2025 12:28 PM CDT [facility] Basophil Absolute 0.04 0.00 - 0.13 x10E9/L 03/06/2025 12:28 PM CDT [facility] Blood BLOOD SPECIMEN / Unknown Venipuncture / Unknown 03/06/2025 12:20 PM CDT 03/06/2025 12:25 PM CDT Willa Avila HYSTER MACHINE OPERATOR-ROTARY FILTER OPERATOR LAB - HEMATOLOGY ORDERABL ES Final Result [facility] [address] [place] [address] * (ABNORMAL) COMPREHENSIVE METABOLIC PANEL (03/06/2025 12:20 PM CDT) [facility] Glucose 124(H) 70 - 99 mg/dL 03/06/2025 12:46 PM CDT [facility] Sodium 141 136 - 145 mmol/L 03/06/2025 12:46 PM CDT [facility] Potassium 4.0 3.5 - 5.1 mmol/L 03/06/2025 12:46 PM CDT [facility] Chloride 108(H) 98 - 107 mmol/L 03/06/2025 12:46 PM CDT [facility] CO2 26 22 - 29 mmol/L 03/06/2025 12:46 PM CDT [facility] Calcium 8.9 8.4 - 10.4 mg/dL 03/06/2025 12:46 PM CDT [facility] Anion Gap 7 6 - 16 mmol/L 03/06/2025 12:46 PM CDT [facility] BUN 25 7 - 26 mg/dL 03/06/2025 12:46 PM CDT [facility] Creatinine 0.75 0.57 - 1.11 mg/dL 03/06/2025 12:46 PM CDT [facility] Alkaline Phosphatase 104 40 - 150 U/L 03/06/2025 12:46 PM CDT [facility] ALT 25 6 - 57 U/L 03/06/2025 12:46 PM CDT [facility] AST 26 10 - 48 U/L 03/06/2025 12:46 PM CDT [facility] Protein Total 6.6 6.4 - 8.3 gm/dL 03/06/2025 12:46 PM CDT [facility] Albumin 3.6 3.4 - 5.0 gm/dL 03/06/2025 12:46 PM CDT [facility] Bilirubin Total 0.4 0.2 - 1.2 mg/dL 03/06/2025 12:46 PM CDT [facility] eGFR by CKD-EPI 88(L) >=90 mL/min/1.7 3 m2 03/06/2025 12:46 PM CDT [facility] Blood BLOOD SPECIMEN / Unknown Venipuncture / Unknown 03/06/2025 12:20 PM CDT 03/06/2025 12:25 PM CDT Willa Avila HYSTER MACHINE OPERATOR-ROTARY FILTER OPERATOR LAB - CHEMISTRY ORDERABLE S Final Result [facility] [address] [place] [address] * Dexa Bone Density Axial Skeleton (02/16/2025 [...] Montana PA-C DEXA ORDERABLES Final Resu lt from Last 3 Months or Most Recently Relevant to Health Maintenance Insurance [employer] MEDICARE ADV Advance Directives * Full Code (Latest Code Status on File) Date Activated Date Inactivated Comments 05/07/2025 9:52 AM 05/08/2025 5:07 PM Care Teams Teller Supervisor Relationship Specialty Start Date End Date Dilcia Garcia PA [address] [place] [address] PCP - General Physician Private Duty Aide 05/05/24
--- OUTSIDE RECORDS SUMMARY | 2025-06-03 15:57 | XMS_ITS | Data Portability ---
Author Organization [place] [facility], Main Office Address [address] [place] [address] Assessment Encounter Date Assessment Date Assessment LastModified [...] (PROC ) No observ ation record ed. [id number] Not Available 01/17/2023 18:01:30 05/11/20 21 04/11/2021 imagi ng/di agnos tic resul t No observ ation record ed. [id number] [place] [address], [address], 01/17/2023 18:01:30 07/06/20 21 06/04/2021 XR, da mejía No observ ation record ed. [id number] [facility] (Imaging) [address] [place] [address], [id number], 01/17/2023 18:01:30 08/16/20 21 08/15/2021 CT, abdom en, w/o contr ast No observ ation record ed. [id number] [facility] (Imaging) [address], [place], [address], 01/17/2023 18:01:30 02/14/20 23 11/17/2022 MAMMO , scree lachelle, digit al, bilat eral No observ ation record ed. [email or web address] [facility] [address], [place], [address], 05/18/2023 15:56:44 Result Notes None recorded. Problems Name Problem SNOMED Code Status Onset Date Resolution Date Notes Provider Name and Address Organization Details Recorded Time Decreased hearing 261676252 Active 2021 Not Available [facility] 3 18:00:40 Benign hypertensi on 89640557 Active Not Available [facility] 3 18:00:40 Benign essential hypertensi on 7583138 Active 2021 Not Available [facility] 3 18:00:40 Pain of right shoulder joint 2269727248822 9100 Active 2021 Not Available [facility] 3 18:00:40 Serum total protein outside reference range 284008232 Active 2021 Not Available [facility] 3 18:00:40 Mixed anxiety and depressive disorder 363245428 Active 2021 Not Available [facility] 3 18:00:40 Gastroesop hageal reflux disease 134067571 Active 2021 Not Available [facility] 3 18:00:40 Multiple gastric erosions 989495538 Active Not Available [facility] 3 18:00:40 Anemia 465493527 Active Not Available [facility] 3 18:00:40 Low back pain 632494245 Active Not Available [facility] 3 18:00:40 Vitamin D deficiency 80477150 Active Not Available [facility] 3 18:00:40 Hiatal hernia with gastroesop hageal reflux 176807250 Active 2020 Not Available [facility] 3 18:00:41 Pain of hip region 51179999 Active Not Available [facility] 3 18:00:41 Cough 40352403 Active Not Available [facility] 3 18:00:41 Hyperlipid emia 86977456 Active Not Available [facility] 3 18:00:41 Dyspnea on exertion 25946159 Active Not Available [facility] 3 18:00:41 Bursitis of hip 46981745 Active Not Available [facility] 3 18:00:41 Iron deficiency anemia 41808466 Active Not Available [facility] 3 18:00:41 Weight gain 7576411 Active Not Available [facility] 3 18:00:41 Problem Notes None recorded. Procedures Surgical History Date Name Laterality Status Provider Name and Address Organization Details Recorded Time 08/25/20 22 perineorrhaphy completed Not Available [facility] 01/17/2023 18:00:24 08/19/20 22 repair of urinary bladder completed Not Available [facility] 01/17/2023 18:00:24 06/01/20 21 hernia repair completed Not Available [facility] 01/17/2023 18:00:24 07/31/20 16 Date of Last Colonoscopy completed Not Available [facility] 01/17/2023 18:00:24 07/31/20 16 Colonoscopy completed Not Available [facility] 01/17/2023 18:00:24 11/19/19 12 hysterectomy completed Not Available [facility] 01/17/2023 18:00:24 06/03/20 08 release of trigger thumb completed Not Available [facility] 01/17/2023 18:00:24 03/07/20 07 Carpal tunnel surgery completed Not Available [facility] 01/17/2023 18:00:24 11/19/18 88 Ligation of hemorrhoid(s) completed Not Available [facility] 01/17/2023 18:00:24 Imaging Results None recorded. Procedure Notes None recorded. Medical Equipment None Reported. Allergies Allergen ID Allergen Name Allergen Category Reaction Reaction Severity Criticality Documentation Date Start Date Code Code System Note Provider Name and Address Organization Details Recorded Time 32337 Macrobid medicatio n Not available Not available Not available 01/17/2023 80015 1 RxNorm Not Available [facility] 3 18:01:29 58014 Bactrim medicatio n Not available Not available Not available 01/17/2023 11439 9 RxNorm Not Available [facility] 3 18:01:29 Medications Name Sig Start Date [...] Heart rate Body temperature Body weight Systolic And Diastolic Provider Name and Address Organization Details Last Updated DateTime 1 31 kg/m2 154.94 cm 96 % 96 % 76 /min 97.4 [degF] 00683.1 5 g 130/80 mm[Hg] Not Available [facility] 3 18:00:34 Date Recorded Body mass index (BMI) Body height Oxygen saturation Oxygen saturation in Arterial blood by Pulse oximetry Heart rate Body temperature Body weight Systolic And Diastolic Provider Name and Address Organization Details Last Updated DateTime 2 27.6 kg/m2 154.94 cm 97 % 97 % 83 /min 97.3 [degF] 38728.4 9 g 120/74 mm[Hg] Not Available [facility] 3 18:00:34 Date Recorded Systolic And Diastolic Provider Name and Address Organization Details Last Updated DateTime 05/18/2023 110/70 mm[Hg] GUNNAR Lorenzo [address] [facility], [facility] [address], [place], [address], [facility] 05/18/2023 15:48:05 Date Recorded Body height Body mass index (BMI) Body weight Body temperature Heart rate Oxygen saturation Oxygen saturation in Arterial blood by Pulse oximetry Systolic And Diastolic Provider Name and Address Organization Details Last Updated DateTime 3 154.94 cm 28.7 kg/m2 18504.0 4 g 97.8 [degF] 67 /min 98 % 98 % 110/78 mm[Hg] Bekah Jasso RN [facility] 3 15:31:00 Date Recorded Body mass index (BMI) Body height Oxygen saturation Oxygen saturation in Arterial blood by Pulse oximetry Heart rate Respiratory rate Body temperature Body weight Systolic And Diastolic Provider Name and Address Organization Details Last Updated DateTime 2 27.8 kg/m2 154.94 cm 99 % 99 % 77 /min 16 /min 97.8 [degF] 23608.0 8 g 120/80 mm[Hg] Not Available [facility] 3 18:00:34 Date Recorded Body mass index (BMI) Body height Oxygen saturation Oxygen saturation in Arterial blood by Pulse oximetry Heart rate Body temperature Body weight Systolic And Diastolic Provider Name and Address Organization Details Last Updated DateTime 1 28.9 kg/m2 154.94 cm 98 % 98 % 87 /min 97 [degF] 29842.6 3 g 110/80 mm[Hg] Not Available [facility] 3 18:00:34 Social History Question Answer Notes LastModified by Organizat ion Details LastModified Time Tobacco Smoking Status Former Smoker Bekah aJsso RN [facility], [facility] 05/18/2023 15:26:16 What Is Your Level Of Caffeine Consumption? Occasional [id number] Information not available 01/17/2023 How Much Tobacco Do You Chew? None [id number] Information not available 01/17/2023 In The 14 Days Before Symptom Onset, Have You Had Close Contact With A Laboratory-confir med COVID-19 While That Case Was Ill? No [email or web address] Information not available 05/18/2023 In The 14 Days Before Symptom Onset, Have You Had Close Contact With A Person Who Is Under Investigation For COVID-19 While That Person Was Ill? No [email or web address] Information not available 05/18/2023 What Type Of Diet Are You Following? REGULAR [id number] Information not available 01/17/2023 Which Illicit Or Recreational Drugs Have You Used? None Information not available 05/18/2023 Have There Been Any Changes To Your Family Or Social Situation? No [email or web address] Information no t available 05/18/2023 Are There Any Guns Present In Your Home? No [email or web address] Information not available 05/18/2023 Do You Use Insect Repellent Routinely? No [email or web address] Information not available 05/18/2023 Do You Use Your Seat Belt Or Car Seat Routinely? Yes [email or web address] Information not available 05/18/2023 Do You Have Smoke And Carbon Monoxide Detectors In Your Home? Yes [email or web address] Information not available 05/18/2023 How Much Tobacco Do You Smoke? 1 PPW [id number] Information not available 01/17/2023 Do You Use Sunscreen Routinely? Yes [email or web address] Information not available 05/18/2023 Have You Recently Traveled Abroad? No [email or web address] Information not available 05/18/2023 Do You Have Any Dietary Restrictions? No [email or web address] Information not available 05/18/2023 Sex: Female Functional Status Question Answer Note LastModified by Organizat ion Details LastModified Time Do you use any illicit or recreational drugs? No [email or web address] Information not available 05/18/2023 What is your level of alcohol consumption? Occasional [id number] Information not available 01/17/2023 Are you currently employed? 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 None [id number] Information not available 01/17/2023 Mental Status None recorded. Family History Relationship Description Onset Age of this Age Resolved Age Notes LastModified by Organization Details LastModified Time Mother Diverticulit is [email or web address] Not available 15:26:16 Mother Hypertensive disorder [id number] Not available 01/17/2023 18:00:25 Mother Anxiety disorder [id number] Not available 01/17/2023 18:00:25 Father Coronary arterioscler osis [email or web address] Not available 15:26:16 Medical History Condition Response INSOMNIA Y HEARTBURN / REFLUX Y HYPERTENSION Y Deficiency Y HIGH CHOLESTEROL / HYPERLIPIDEMIA Y CARDIAC ARRHYTHMIA Y EYE PROBLEMS N ANXIETY DISORDER Y OBESITY Y URINARY/BLADDER/KIDNEY PROBLEMS Y BACK / NECK PROBLEMS Y SLEEP DISORDER Y DEPRESSION (INCLUDING POST ) Y Gynecological History Statement/Question Response How many [...] (COVID-19) vaccine, UNSPECIFIED 1 completed Not Available [facility] 01/17/2023 18:01:29 SARS-COV-2 (COVID-19) vaccine, UNSPECIFIED 0 completed Not Available [facility] 01/17/2023 18:01:29 Influenza, split virus, quadrivalent, preservative 9 completed Not Available [facility] 01/17/2023 18:01:29 influenza, unspecified formulation 6 completed Not Available [facility] 01/17/2023 18:01:29 influenza, unspecified formulation 5 completed Not Available [facility] 01/17/2023 18:01:29 Past Encounters Encounter ID Performer Location Encounter Start Date Encounter Closed Date Diagnosis/Indication Diagnosis SNOMED-CT Code Diagnosis ICD10 Code Diagnosis Note [id number] GUNNAR Lorenzo [facility] [address] [place] [address] 02/25/2021 00:00:00 03/18/2021 08:43:57 [id number] GUNNAR Lorenzo [facility] [place] [address] [place] [address] 11/04/2021 00:00:00 11/17/2021 20:11:02 [id number] Teofilo Jeter MD [facility] [place] [address] [place] [address] 05/01/2022 00:00:00 05/18/2022 16:29:28 [id number] GUNNAR Lorenzo [facility] [place] [address] [place] [address] 10/31/2022 00:00:00 11/16/2022 16:39:24 [id number] GUNNAR Lorenzo [facility] [place] [address] [place] [address] 05/18/2023 15:25:17 05/18/2023 15:56:17 Adult health examination 477205966 Z00.01 well exam completed. labs were completed in february but not faxed to us. we have called to get them. Benign ess ential hypertension 2614210 I10 great control on medication . Hiatal her juanito with gastroesophageal reflux 507137199 K21.9 stable on PPI therapy Hyperlipidemia 88470851 E78.5 stable on statin therapy. Mixed anxi ety and depressive disorder 650096696 F41.8 stable. no c/o on fluoxetine . Long-term drug therapy 629902495 Z79.899 f/u 6 months. Health Concerns Section Related Observation LastModified by Organization Detai ls LastModified Time None Recorded Concern Status LastModified by Organization Details LastModified Time None Recorded Advance Directives Directive None Recorded Payers Insurance Date Sequence Insurance Name Policy Number Policy Kaufman Covered Member ID Kaufman Member ID Guarantor Name 05/15/[address] [facility] [id number] Rachel Raman [id number] Rachel Raman Notes Date Note Type Note [...] appetite good; energy good; no apathy; maintaining functionality HyperlipidemiaReported bypatient.Control:usually well controlled; improving; at goal Compliance:compliant; [...] Esomperazole anymore, needs something else. Not Available [facility] 03/18/2021 08:43:57 021 text/h tml Anxiety/DepressionReported bypatient.Severity:denies [...] no early satiety; no halitosis Not Available [facility] 11/17/2021 20:11:02 022 text/h tml Anxiety/DepressionReported bypatient.Severity:denies [...] no early satiety; no halitosis Not Available [facility] 05/18/2022 16:29:28 022 text/h tml Anxiety/DepressionReported bypatient.Quality:doesnt [...] in exercise capacity; no snoring Not Available [facility] 11/16/2022 16:39:24 023 text/h tml Anxiety/DepressionReported bypatient.Severity:denies [...] no throat pain wellness GUNNAR Lorenzo [address] [facility] [address], [place], [address], [place] [facility] 05/18/2023 15:59:30 OBGyn Episode No OBEpisode recorded.
--- OUTSIDE RECORDS SUMMARY | 2025-06-03 15:57 | XMS_ITS ---
Author Name Auto Generated, Auto Generated Organization [employer] [facility] Address [address] [place] [address] Phone [phone] Care Team Providers Care Sternman Name Role Phone Chan Sandoval [phone] Functional Status No Results Mental Status No Results Allergies and Intolerances Name Onset Date Reaction Severity No Known Allergies (Allergy) SunMay 04 12:25:00 EDT 2024 Encounters Program Name Primary Diagnosis Admission Date/Time Dis charge Date/Time Home Care SunMay 08 20:00 :00 EDT 2024May 21 19:59:59 EDT 2024 Medications Medication Directions Start Date End Date sertraline 100 mg tablet 1 tablet TABLET Oral Every Morning SunMay 14 01:00:00 EDT 2024May 21 01:00:00 EDT 2024 acetaminophen 500 mg tablet 2 TABLET Ora l 3 Times Daily for 10 Days Indication: pain take for 10 days, then PRN Sat May 09 01:00:00 EDT 2024May 19 00:59:00 EDT 2024 CeleBREX 200 mg capsule 1 CAPSULE Oral 2 Times Daily for 42 Days SunMay 09 01:00:00 EDT 2024May 21 01:00:00 EDT 2024 aspirin 81 mg tablet,delayed release 1 TABLET, DELAYED RELEASE (ENTERIC COATED) Oral 2 Times Daily for 42 Days take for blood clot prevention for 6 weeks SunMay 09 01:00:00 EDT 2024May 21 01:00:00 EDT 2024 oxyCODONE 10 mg tablet 0.5-1 TABLET Oral PRN Every 4 Hours Indication: pain states is not taking. States will not take if taking buspirone. 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 Sat May 09 01:00:00 EDT 2024May 21 01:00:00 EDT 2024 hydroCHLOROthiazide 12.5 mg tablet 1 TABLET Oral 1 Time Daily SunMay 09:00:00 EDT 2024May 21 01:00:00 EDT 2024 senna 8.6 mg tablet 2 TABLET Oral 2 Time s Daily Indication: constipation take while taking opioids/oxycodone SunMay 09 01:00:00 EDT 2024May 21 01:00:00 EDT 2024 magnesium hydroxide 400 mg/5 mL oral suspension 30 mL SUSPENSION, ORAL (FINAL DOSE FORM) Oral PRN 1 Time Daily Indication: constipation take if no BM for 3 days SunMay 09 01:00:00 EDT 2024May 21 01:00:00 EDT 2024 losartan 100 mg tablet 1 TABLET Oral 1 Time Siena y SunMay 09:00:00 EDT 2024May 21 01:00:00 EDT 2024 pantoprazole 40 mg tablet,delayed release 1 TABLET, DELAYED RELEASE (ENTERIC COATED) Oral 1 Time Daily SunMay 09 01:00:00 EDT 2024May 21 01:00:00 EDT 2024 rosuvastatin 20 mg tablet 1 TABLET Oral 1 Time D aily SunMay 09 01:00:00 EDT 2024May 21 01:00:00 EDT 2024 sertraline 50 mg tablet 1 TABLET Oral 1 Time Daily take with one 25 mg sertraline tab for total of 75 mg SunMay 09 01:00:00 EDT 2024May 14 11:44:00 EDT 2024 sertraline 25 mg tablet 1 TABLET Oral 1 Time Daily take with one 50 mg sertraline for a total of 75 mg sertraline SunMay 09 01:00:00 EDT 2024May 14 11:44:00 EDT 2024 Problems Active Concerns * Aftercare following joint replacement surgery* Code: * Start Date: SunMay 08 00:00:00 ED2024 * End Date: * Text: * 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* Code: * Start Date: SunMay 09 00:00:00 ED2024 * End Date: * Text: * Other superintendent terminal (current) drug therapy* Code: * Start Date: SunMay 09 00:00:00 ED2024 * End Date: * Text: * Unspecified urinary incontinence* Code: * Start Date: SunMay 09 00:00:00 EDT 2024 * End Date: * Text: * Gastro-esophageal reflux disease without esophagitis* Code: * Start Date: SunMay 09 00:00:00 EDT 2024 * End Date: * Text: * Carpal tunnel syndrome, unspecified upper limb* Code: * Start Date: SunMay 09 00:00:00 EDT 2024 * End Date: * Text: * Iron deficiency anemia, unspecified* Code: * Start Date: SunMay 09 00:00:00 EDT 2024 * End Date: * Text: * Hyperlipidemia, unspecified* Code: * Start Date: SunMay 09 00:00:00 EDT 2024 * End Date: * Text: * Essential (primary) hypertension* Code: * Start Date: SunMay 09 00:00:00 EDT 2024 * End Date: * Text: * Presence of left artificial hip joint* Code: * Start Date: SunMay 09 00:00:00 EDT 2024 * End Date: * Text: Reason for Referral
[2025-06-03 16:34] LABS: Alanine Aminotransferase 23 U/L (6-35); Aspartate Amino Transferase 37 U/L (14-36)
== END 2025-06-03 15:54 | disposition home or self-care (01) ==
LOC: ANHLAB 15:55
PROVIDERS: PCP Physician Assistant; Visit Provider Podiatrist Foot & Ankle Surgery
DX: B35.1 Tinea unguium (principal)
CPT/HCPCS: 36415; 84450; 84460

== ENCOUNTER 2025-07-30 11:23 | Outpatient (RCR) | payer SELFPAY | END 2025-07-30 23:59 | disposition home or self-care (01) | LOC: ANHAUDIO 11:23 | PROVIDERS: PCP Physician Assistant; Visit Provider Physician Assistant | DX: Z46.1 Encounter for fitting and adjustment of hearing aid (principal) | CPT/HCPCS: 92593 ==

== ENCOUNTER 2025-09-03 14:45 | Outpatient (CLI) | payer MEDICARE, SELFPAY ==
--- OUTSIDE RECORDS SUMMARY | 2025-07-03 08:30 | XMS_ITS ---
Author Organization [facility] [employer] [facility] Address [address] [facility] [address] [place] [address] Care Team Providers Care Excelsior Picker Name Role Phone Dilcia Dhillon Primary Care Provider Aziza Yanez Unavailable [phone] Callum Hernandes Unavailable [phone] REASON FOR VISIT 1 month f/u Social History Sex Assigned At : Social History Observation Description Sex Assigned At Female Encounters Encounter Location Date Provider Diagnosis [facility] [address] [facility] [address] [place] [address] 07/03/2025 Callum Hernandes Plan Of Treatment Next Appt Details Provider Name:Mindy Kaminski lucila, 11/04/2025 01:00:00 PM, [address], [facility] [address], [place], [address], Progress Notes * EVER MORGANOB:1960 ( 65 yo F)Acc No.[id number]:07/03/2025 Patient: LILY CHERY Provider: FERNANDO Guzman :1960 A ge:65 Y S ex:Female Date:07/03/2025 Phone: Address:[address] [facility], [place] Pcp:Dilcia MAHER Subjective: * Chief Complaints: * 1 month f/u * HPI: T ransition of Care: 03/27/25 started therapy with aziza 04/09/25 cross titration from prozac to sertraline r/t high anxiety. - increase buspar to 15 mg BID 04/16/25 - continue cross titration - initiate lithium 150 mg daily - continue buspar 6/5/25 - continue cross titration from prozac to sertraline - continue buspar - d/c lithium 150 mg daily - prozac 40 daily - sertraline 75 daily 05/06/25 - d/c fluoxetine - continue buspar 15 BID - continue sertraline 100 mg 06/03/2025 - increase buspar to 15 mg in the morning 30 mg in the evening - increase sertraline to 150 - continue calm aid at night - continue therapy. * Electronic signature of FERNANDO Dobbins on 09/03/2025 at 04:51 PM CDT Sign off status: Pending * Provider: FERNANDO Guzman Date: 0 07/03/2025 Generated for Juanita vargas/Mariia/Neena on: 1 04:51 PM CDT
[2025-09-03 15:41] LABS: Alanine Aminotransferase 22 U/L (6-35); Aspartate Amino Transferase 36 U/L (14-36)
--- OUTSIDE RECORDS SUMMARY | 2025-09-03 16:52 | XMS_ITS | Data Portability ---
Author Organization NANCY Gross SIFlorencio Bell Address [address] [facility] [place] [address] Assessment No assessment recorded. Plan of Treatment Reminders Order Date Submit Date Provider Last Modified By Organization Details Last Modified Time Details Appointments ANY 15 2024 11:00A M GUNNAR Lorenzo Not available Not available Not available Lab CBC w/ auto diff 2023 025 [facility], [address] [place] [address], [id number], 06/22/2025 14:20:08 CMP, serum or plasma 2023 025 [facility], [address] [place] [address], [id number], 06/23/2025 15:37:43 TSH + free T4, serum 2023 025 [facility], [address] [place] [address], [address], 06/22/2025 14:18:55 vitamin B12 + folate, serum or blood 2023 025 [facility], [address] [place] [address], [address], 03/26/2025 13:18:42 HbA1c (hemoglob in A1c), blood 2023 025 [facility], [address] [place] [address], [id number], 03/26/2025 13:18:24 lipid panel, serum 2023 025 [facility] [address] [place] [address] [place] [address], [id number], 06/22/2025 14:18:55 CBC w/ auto diff 2023 024 [facility], [facility] [address] [place] [address], [address], 02/13/2024 16:04:46 CMP, serum or plasma 2023 024 [facility], [address] [place] [address] [place] [address], [address], 02/12/2024 12:41:49 vitamin B12 + folate, serum or blood 2023 024 [facility], [address] [place] [address] [place] [address], [id number], 02/13/2024 16:04:47 TSH + free T4, serum 2023 024 [facility], [address] [place] [address] [place] [address], [address], 02/12/2024 13:03:05 HbA1c (hemoglob in A1c), blood 2023 024 [facility], [address] [place] [address] [place] [address], [address], 02/13/2024 16:04:47 lipid panel, serum 2023 024 [facility], [address] [place] [address] [place] [address], [id number], 02/12/2024 12:48:34 Referral None recorded. Procedures lexiscan cardiolit e stress test (PROC) - this is preop requireme nt for abnormal EKG. upcoming April JENNA. [address] (Cardiology & Emg), [address] [place] [address] [place] [address], [phone], 05/30/2025 05:15:57 Surgeries None recorded. Imaging MRI, lumbar spine, w/o contrast 2023 024 [facility] (Imaging), [address] [place] [address], [phone], 10/09/2024 16:40:30 XR, lumbosacr al spine 2023 024 [facility] (Imaging), [address] [place] [address], [phone], 09/04/2024 10:32:34 XR, hip, unilatera l, 2 or 3 view 2023 024 [facility] (Imaging), [address] [place] [address], [phone], 03/10/2025 12:29:16 MAMMO, screening , digital, bilateral 2023 024 [facility] (Imaging), [address] [place] [address], [phone], 06/23/2025 15:37:55 XR, chest, 2 view 2023 024 [facility] (Imaging), [address] [place] [address], [phone], 07/23/2024 15:09:33 XR, shoulder, 2 or more view 2023 024 [facility] (Imaging), [address] [place] [address], [phone], 03/12/2024 12:45:27 XR, knee, 3 view 2023 024 [facility] (Imaging), [address] [place] [address], [phone], 03/12/2024 12:44:02 Medication Orders Medrol (Rolando) 4 mg tablets in a dose pack 2023 025 [facility][id number], [address] [facility], [place], [place], [id number], 11/26/2024 18:09:10 cyclobenz aprine 10 mg tablet 2023 025 [facility] #[id number], [address] [facility], [place], [place], [id number], 03/10/2025 12:18:58 buspirone 5 mg tablet 2023 [facility] #[id number], [address] [facility], [place], [place], [id number], 11/10/2024 18:16:49 prednison e 20 mg tablet 2023 [facility] #[id number], [address] [facility], [place], [place], [id number], 09/03/2024 16:00:54 Patient TargetsNo targets recorded. Patient Instructions Encounter Date Encounter Id Patient Instructions Last Modified By Organization Details Last Modified Time 07/23/2024 [id number] A healthy lifestyle: care instructions Not available 07/23/2024 10:39:53 09/03/2024 [id number] low back pain: exercises Not available 09/03/2024 16:20:38 03/10/2025 [id number] A healthy lifestyle: care instructions Not available [...] 80NG/m L low Vitam in D, 25 [facility] xy 20.7 (L) 30 - 80 ng/mL [...] 107 mmol/ L 03/06 12:46 PM CDT [facility] Not Available Not Available 03/09/2025 12:12:58 03/06/20 25 03/06/2025 Compr ehens tenisha metab olic 1999 panel - Serum or Plasm a carbon dioxide, total [moles/volum e] in serum or plasma 26 mmol/ L low: 22mmol /Lhigh : 29mmol /L CO2 26 22 - 29 mmol/ L 03/06 12:46 PM CDT [facility] Not Available Not Available 03/09/2025 12:12:58 03/06/2003/06/2025 Compr ehens tenisha metab olic 1999 panel - Serum or Plasm a calcium [mass/volume ] in serum or plasma 8.9 mg/dL low: 8.4mg/ dLhigh : 10.4mg /dL Calci um 8.9 8.4 - 10.4 mg/dL 03/06 12:46 PM CDT [facility] Not Available Not Available 03/09/2025 [...] Available 03/09/2025 12:12:58 03/06/20 25 03/06/2025 Compr [place] tenisha metab olic 1999 panel - Serum or Plasm a creatinine [mass/volume ] in serum or plasma 0.75 mg/dL low: 0.57mg /dLhig h: 1.11mg /dL Creat inine 0.75 0.57 - 1.11 mg/dL 03/06 12:46 PM CDT [facility] Not Available Not Available 03/09/2025 12:12:58 03/06/20 25 03/06/2025 Compr [place] tenisha metab olic 1999 panel - Serum or Plasm a alkaline phosphatase [enzymatic activity/vol ume] in serum or plasma 104 U/L low: 40U/Lh igh: 150U/L Alkal ine Phosp hatas e 104 40 - 150 U/L 03/06 12:46 PM CDT [facility] Not Available Not Available 03/09/2025 12:12:58 03/06/20 25 03/06/2025 Compr [place] tenisha metab olic 1999 panel - Serum or Plasm a alanine aminotransfe rase [enzymatic activity/vol ume] in serum or plasma 25 U/L low: 6U/Lhi gh: 57U/L ALT 25 6 - 57 U/L 03/06 12:46 PM CDT [facility] Not Available Not Available 03/09/2025 12:12:58 03/06/20 25 03/06/2025 Compr [place] teinsha [employer] olic 1999 panel - Serum or Plasm a aspartate aminotransfe rase [enzymatic activity/vol ume] in serum or plasma 26 U/L low: 10U/Lh igh: 48U/L AST 26 10 - 48 U/L 03/06 12:46 PM CDT [facility] Not Available Not Available 03/09/2025 12:12:58 03/06/20 25 03/06/2025 Compr [place] tenisha metab olic 1999 panel - Serum or Plasm a protein [mass/volume ] in serum or plasma 6.6 text: 6.4 - 8.3 gm/dL Prote in Total 6.6 6.4 - 8.3 gm/dL 03/06 12:46 PM CDT [facility] Not Available Not Available 03/09/2025 12:12:58 03/06/20 25 03/06/2025 Compr Octopart tenishaXercise4less olic 1999 panel - Serum or Plasm a albumin [mass/volume ] in serum or plasma 3.6 text: 3.4 - 5.0 gm/dL Album in 3.6 3.4 - 5.0 gm/dL 03/06 12:46 PM CDT [facility] Not Available Not Available 03/09/2025 12:12:58 03/06/2003/06/2025 Compr [place] 1999 panel - Serum or Plasm a bilirubin.to galileo [mass/volume ] in serum or plasma 0.4 mg/dL low: 0.2mg/ dLhigh : 1.2mg/ dL Bilir ubin Total 0.4 0.2 - 1.2 mg/dL 03/06 12:46 PM CDT [email or web address] Not Available Not Available 03/09/2025 12:12:58 03/06/2003/06/2025 Compr Octopart tenisha [employer] 1999 panel - Serum or Plasm a glomerular filtration rate [volume rate/area] in serum, plasma or blood by creatinine-b ased formula (CKD-epi 2020)/1.73 sq M 88 text: >=90 mL/min /1.73 m2 low eGFR by CKD-E PI 88 (L) >=90 mL/mi n/1.7 3 m2 03/06 12:46 PM CDT [email or web address] Not Available Not Available 03/09/2025 12:12:58 03/06/2003/06/2025 Compr Octopart tenisha [employer] 2000 panel - Serum or Plasm a [...] 03/06/20 25 03/06/2025 CBC W Auto Diffe henrqiue ahumada panel - Blood erythrocytes [#/volume] in [...] - 15.8 g/dL 03/06 12:28 PM CDT [facility] Not Available Not Available 03/09/2025 12:12:58 03/06/20 25 03/06/2025 CBC W Auto Diffe henrique ahumada panel - Blood hematocrit [volume fraction] of blood by automated count 40.4 % low: 34.8%h igh: 46.1% Hemat ocrit 40.4 34.8 - 46.1 % 03/06 12:28 PM CDT [facility] Not Available Not Available 03/09/2025 [...] - 36.3 g/dL 03/06 12:28 PM CDT [facility] Not Available Not Available 03/09/2025 12:12:58 03/06/20 25 03/06/2025 CBC W Auto Diffe henrique ahumada panel - Blood erythrocyte [distwidth] in red blood cells by automated count 13.6 % low: 11.3%h igh: 14.8% RDW-C V 13.6 11.3 - 14.8 % 03/06 12:28 PM CDT [facility] Not Available Not Available 03/09/2025 12:12:58 03/06/20 25 03/06/2025 CBC W Auto Diffleroy ahumada panel - Blood platelets [#/volume] in blood by automated count 271 text: 150 - 420 x10e9/ L Plate let Count 271 150 - 420 x10E9 /L 03/06 12:28 PM CDT [facility] Not Available Not Available 03/09/2025 12:12:58 03/06/20 25 03/06/2025 CBC W Auto Diffe henrique ahumada panel - Blood platelet [entitic mean volume] in blood by automated count 9.3 fL low: 7.8fLh igh: 11.4fL MPV 9.3 7.8 - 11.4 fL 03/06 12:28 PM CDT [facility] Not Available Not Available 03/09/2025 [...] - 7.50 x10e9/ L Neutr ophil Absol ruby 5.45 1.60 - 7.50 x10E9 /L 03/06 12:28 PM CDT [facility] Not Available Not Available 03/09/2025 12:12:58 03/06/20 25 03/06/2025 CBC W Auto Diffe renti al panel - Blood lymphocytes [#/volume] in blood by automated count 0.73 text: 1.00 - 4.40 x10e9/ L low Lymph ocyte Absol ruby 0.73 (L) 1.00 - 4.40 x10E9 /L 03/06 12:28 PM CDT [facility] Not Available Not Available 03/09/2025 12:12:58 03/06/20 25 03/06/2025 CBC W Auto Diffe renti al panel - Blood monocytes [#/volume] in blood by automated count 0.73 text: 0.15 - 1.00 x10e9/ L Monoc yte Absol ruby 0.73 0.15 - 1.00 x10E9 /L 03/06 12:28 PM CDT [facility] Not Available Not Available 03/09/2025 12:12:58 03/06/20 25 03/06/2025 CBC W Auto Diffe renti al panel - Blood eosinophils [#/volume] in blood 0.14 text: 0.00 - 0.60 x10e9/ L Eosin ophil Absol ruby 0.14 0.00 - 0.60 x10E9 /L 03/06 12:28 PM CDT [facility] Not Available Not Available 03/09/2025 12:12:58 03/06/20 25 03/06/2025 CBC W Auto Diffe renti al panel - Blood basophils [#/volume] in blood by automated count 0.04 text: 0.00 - 0.13 x10e9/ L Basop hil Absol ruby 0.04 0.00 - 0.13 x10E9 /L 04/18 /2025 12:28 PM CDT [facility] Not Available Not Available 03/09/2025 12:12:58 03/06/2003/06/2025 CBC W Auto Diffe renti al panel - Blood interpretati on and review of laboratory results ABNORM AL Not Available Not Available 12:12:58 03/12/20 24 01/28/2024 XR, knee, 3 view No observ ation record ed. [address] [address], [place], [address], 03/12/2024 13:49:31 03/12/20 24 01/28/2024 XR, shoul edy, 2 or more view No observ ation record ed. [address] [address], [place], [address], 03/12/2024 13:48:59 07/23/20 24 07/23/2024 XR, chest , 2 view No observ ation record ed. [address] [address], [place], [address], 08/08/2024 16:02:35 09/04/20 24 09/03/2024 XR, lumbo sacra l spine No observ ation record ed. [address] [address], [place], [address], 09/04/2024 17:19:32 10/09/20 24 10/09/2024 MRI, lumba r spine , w/o contr ast No observ ation record ed. [address] [address], [place], [address], 10/12/2024 12:54:00 03/10/2009/03/2024 XR, lumbo sacra l spine No observ ation record ed. [address] [address], [place], [address], 03/19/2025 14:12:32 03/10/20 25 09/03/2024 XR, hip, unila teral , 2 or 3 view No observ ation record ed. [facility] [address], [place], [address], 03/19/2025 14:12:33 03/25/2003/25/2025 ambreen can cardi olite stres s test (PROC ) No observ ation record ed. [facility] ([facility]) [address] [facility] [address], [place], [address], 04/26/2025 21:33:12 04/17/2003/25/2025 ambreen can cardi olite stres s test (PROC ) No observ ation record ed. [facility] ([facility]iology [facility]) [address] [facility] [address] [facility] [address], [place], [address], 04/17/2025 14:22:54 Result Notes None recorded. Problems Name Problem SNOMED Code Status Onset Date Resolution Date Notes Provider Name and Address Organization Details Recorded Time Benign essential hypertensio n 0031384 Active 2023 Gail Conley null, [place] - [facility] 4 16:03:28 Mixed anxiety and depressive disorder 198683968 Active 2023 Gail [place] [facility] 4 16:03:38 Hyperlipide jameson 18639355 Active 2023 Gail [place] - [facility] 4 16:03:49 Blood glucose outside reference range 092290888 Active 2023 GUNNAR Lorenzo Attn: Emma torres,[address] [facility], [place], [address], [place] - [facility] 4 10:30:28 Body mass index 25-29 - overweight 025583766 Active 2023 GUNNAR Lorenzo Attn: Emma torres,[address] [facility], [place], [address], [place] - [facility] 4 10:30:29 Overweight 487846210 Active 2023 GUNNAR Lorenzo Attn: Accountin g,[address] [facility], [place], [address], [place] - [facility] 4 10:30:30 Long-term drug therapy Active 2023 GUNNAR Lorenzo Attn: Accountin g,[address] [facility], [place], [address], [place] - [facility] 4 10:30:31 Adult health examination Active 2023 GUNNAR Lorenzo Attn: Accountin g,[address] [facility], [place], [address], [place] [facility] 4 10:30:36 Right side sciatica 7319517046373 01 Active 2023 GUNNAR Lorenzo Attn: Accountin g,[address] [facility], [place], [address], [place] [facility] 4 23:09:51 Gastroesoph ageal reflux disease without esophagitis 596167677 Active 2023 GUNNAR Lorenzo Attn: Accountin g,[address] [facility], [place], [address], [place] [facility] 4 23:11:01 Pain of left hip joint 9692155003594 00 Active 2023 GUNNAR Lorenzo Attn: Accountin g,[address] [facility], [place], [address], [place] [facility] 4 11:46:29 Left side sciatica 1722457857127 04 Active 2023 GUNNAR Lorenzo Attn: Accountin g,[address] [facility], [place], [address], [place] [facility] 4 11:46:30 Lumbar radiculopat hy 545261247 Active 2023 GUNNAR Lorenzo Attn: Accountin g,[address] [facility], [place], [address], [place] [facility] 4 11:46:44 Prediabetes 510397503 Active 2024 GUNNAR Lorenzo Attn: Emma torres,[address] [facility], [place], [address], [facility] 5 12:33:00 Electrocard iogram abnormal 418802650 Active 2024 GUNNAR Lorenzo Attn: Emma torres,[address] [facility], [place], [address], [facility] 5 01:01:04 Problem Notes None recorded. Procedures Surgical History Date Name Laterality Status Provider Name and Address Organization Details Recorded Time Hernia Repair completed Patricia Crawford MA [facility] 01/22/2024 15:15:02 Total hysterectomy completed Patricia Crawford MA [facility] 01/22/2024 15:15:09 Imaging Results None recorded. Procedure Notes None recorded. Medical Equipment None Reported. Allergies No known drug allergies Medications Name Sig Start Date Stop Date Status Note LastModified by Organization Details LastModified Time losartan 50 mg tablet TAKE 1 TABLET BY MOUTH EVERY DAY active Not Available Not Available No t Available fluoxetine 40 mg capsule TAKE 1 CAPSULE BY MOUTH DAILY FOR 7 DAYS active Not Available Not Available No t Available cyclobenzap rine 10 mg tablet TAKE 1 [...] completed Not Available Not Available Not Available sertraline 100 mg tablet TAKE 1 AND 1/2 TABLETS BY MOUTH DAILY active Not Available Not Available No t Available clobetasol 0.05 % topical cream APPLY EXTERNALL Y TO THE AFFECTED AREA TWICE DAILY FOR 3 WEEKS active Not Available Not Available No t Available lithium carbonate 150 mg capsule TAKE 1 CAPSULE BY MOUTH DAILY active Not Available Not Available No t Available terbinafine HCl 250 mg tablet TAKE 1 TABLET BY MOUTH EVERY DAY active Not Available Not Available No t Available pantoprazol e 40 mg tablet,shandra yed release TAKE 1 TABLET BY MOUTH EVERY DAY active Not Available Not Available No t Available fluoxetine 20 mg tablet TAKE 3 TABLETS BY MOUTH EVERY DAY 03/10 completed Not Available Not Available Not Available buspirone 10 mg tablet TAKE 1 TABLET BY MOUTH TWICE DAILY active Not Available Not Available No t Available clotrimazol e-betametha sone 1 %-0.05 % topical cream APPLY TO FEET TWICE DAILY FOR 3 WEEKS active Not Available Not Available No t Available gabapentin 300 mg capsule TAKE 1 CAPSULE BY MOUTH EVERY DAY AT BEDTIME active Not Available Not Available No t Available sertraline 25 mg tablet TAKE 1 TABLET BY MOUTH DAILY IN ADDITION TO 50 MG DOSE FOR A TOTAL DOSE OF 75 MG DAILY 30 DAYS active Not Available Not Available No t Available diclofenac sodium 75 mg tablet,shandra yed release TAKE 1 TABLET BY MOUTH TWICE DAILY WITH FOOD NEEDED active Not Available Not Available No t Available scopolamine 1 mg over 3 days transdermal patch APPLY 1 PATCH TOPICALLY TO THE SKIN EVERY 72 HOURS NEEDED active Not Available Not Available No t Available methylpredn isolone 4 mg tablets in a dose pack FOLLOW PACKAGE DIRECTION S 11/26 completed Not Available Not Available Not Available losartan 100 mg tablet TAKE 1 TABLET BY MOUTH EVERY DAY 07/29 completed Not Available Not Available Not Available fluoxetine 20 mg capsule TAKE 1 CAPSULE BY MOUTH DAILY FOR 7 DAYS active Not Available Not Available No t Available buspirone 15 mg tablet TAKE 1 TABLET BY MOUTH THREE TIMES DAILY active Not Available Not Available No t Available rosuvastati n 20 mg tablet TAKE 1 TABLET BY MOUTH EVERY DAY active Not Available Not Available No t Available hydrochloro thiazide 12.5 mg tablet TAKE 1 TABLET BY MOUTH EVERY DAY active Not Available Not Available No t Available fluoxetine 60 mg tablet Take 1 tablet every day by oral route. 2023 active Not Available Not Available Not Avai lable sertraline 150 mg capsule Take 1 capsule every day by oral route. 2024 active Not Available Not Available Not Avai lable Paxlovid 300 mg (150 mg x 2)-100 mg tablets in a dose pack TK 2 NIRMATREL VIR TS AND 1 RITONAVIR T TOGETHER PO TWICE DAILY FOR 5 DAYS 09/03 completed Not Available Not Available Not Available Vitals Date Recorded Systolic And Diastolic Provider Name and Address Organization Details Last Updated DateTime 01/22/2024 110/80 mm[Hg] GUNNAR Lorenzo Attn: Accounting,[address] [place], [address], [facility] 01/22/2024 15:49:38 Date Recorded Body weight Heart rate Respiratory rate Oxygen saturation Oxygen saturation in Arterial blood by Pulse oximetry Body mass index (BMI) Body height Systolic And Diastolic Provider Name and Address Organization Details Last Updated DateTime 4 32947.4 5 g 70 /min 18 /min 97 % 97 % 28.5 kg/m2 154.94 cm 108/73 mm[Hg] Patricia Crawford MA [facility] 4 14:55:05 Date Recorded Respiratory rate Systolic And Diastolic Provider Name and Address Organization Details Last Updated DateTime 03/10/2025 16 /min 130/84 mm[Hg] GUNNAR Lorenzo Attn: Accounting,[address] [place], [address], [facility] 03/10/2025 12:50:15 Date Recorded Body height Body mass index (BMI) Body weight Oxygen saturation Oxygen saturation in Arterial blood by Pulse oximetry Heart rate Systolic And Diastolic Provider Name and Address Organization Details Last Updated DateTime 5 154.94 cm 28.3 kg/m2 26305.8 6 g 98 % 98 % 69 /min 116/82 mm[Hg] Patricia Crawford MA [place] - [facility] 5 12:20:50 Date Recorded Respiratory rate Systolic And Diastolic Provider Name and Address Organization Details Last Updated DateTime 07/23/2024 18 /min 130/80 mm[Hg] GUNNAR Lorenzo Attn: Accounting,[address] [place], [address], [facility] 07/23/2024 10:38:58 Date Recorded Body height Body mass index (BMI) Body weight Oxygen saturation Oxygen saturation in Arterial blood by Pulse oximetry Heart rate Systolic And Diastolic Provider Name and Address Organization Details Last Updated DateTime 4 154.94 cm 28.5 kg/m2 80780.7 4 g 98 % 98 % 60 /min 140/88 mm[Hg] Patricia Crawford MA [facility] 4 10:10:30 Date Recorded Body height Body mass index (BMI) Body weight Respiratory rate Oxygen saturation Oxygen saturation in Arterial blood by Pulse oximetry Heart rate Systolic And Diastolic Provider Name and Address Organization Details Last Updated DateTime 154.94 cm 29.1 kg/m2 19236.2 2 g 18 /min 97 % 97 % 60 /min 126/82 mm[Hg] Patricia Crawford [place] - [facility] 16:03:01 Social History Question Answer Notes LastModified by Organizat ion Details LastModified Time Tobacco Smoking Status Former Smoker Patricia Crawford MA null, [place] - [facility] 01/22/2024 14:54:02 Do You Have An Advance [...] 01/22/2024 Are you able to care for yourself independently? Yes Information not available 01/22/2024 What is your exercise level? None Information not available 01/22/2024 Mental Status Question Answer Note LastModified by Organization D etails LastModified Time Do you feel stressed (tense, restless, nervous, or anxious, or unable to sleep at night)? [id number] Information not available 01/22/2024 Family History Relationship [...] Skin Problems N Anemia N Heart Attack (OR) N Anxiety Disorder Y Diabetes N Muscle, [...] [place], [place] [facility] 03/10/2025 12:18:00 Influenza, split virus, quadrivalent, PF 09/13/2023 completed Patricia Crawford [place], [place] [facility] 03/10/2025 12:18:00 Past Encounters Encounter ID Performer Location Encounter Start Date Encounter Closed Date Diagnosis/Indication Diagnosis SNOMED-CT Code Diagnosis ICD10 Code Diagnosis IMO Codes Diagnosis Note [id number] Teofilo Jeter MD [facility] [address] [place] [address] 01/22/2024 14:39:52 01/22/2024 16:03:05 Benign essential hypertension 2238836 I10 stable on losartan 100mg daily. and HCTZ 12.5mg daily. Hyperlipidemia 02980933 E78.5 on statin therapy , crestor 20mg, and due for lipid panel Mixed anxi ety and depressive disorder 217857484 F41.8 stable on fluoxetine 60mg daily. Long-term drug therapy 851399815 Z79.899 routine cbc, cmp, b12, folate and TFTs ordered Diabetes m ellitus screening 432786868 Z13.1 annual a1c screening due Pain of le ft shoulder joint 7007255327 3190858 M25.512 check xray left shoulder joint Pain of ri ght knee joint 7719565007 39989 M25.561 check xray right knee [id number] Teofilo Jeter MD [facility] [address] [place] [address] 07/23/2024 09:55:49 07/23/2024 11:04:04 Body mass index 25-29 - overweight 792567320 Z68.28 BMI is 28.5 Overweight 674841388 E66 .3 Benign ess ential hypertension 1316924 I10 stable on losartan 100mg daily. and HCTZ 12.5mg daily. Mixed anxi ety and depressive disorder 227738013 F41.8 some anxiety spike currently; on fluoxetine 60mg daily. Add BuSpar 5 mg twice daily for tighter anxiety control Hyperlipidemia 01936386 E78.5 on statin therapy , crestor 20mg, and due for lipid panel Long-term drug therapy 004051658 Z79.899 routine cbc, cmp, b12, folate and TFTs ordered for February 05, 2025 Adult heal th examination 143214906 Z00.01 well exam completed Blood gluc ose outside reference range 542815399 R73.09 Following A1c which is 5.8% currently on exam. Repeat in January Screening mammography 24 218354 Z12.31 Annual mammogram is ordered Wheezing 44822441 R06.2 Wheezing appreciate d on exam today with some acute respirator y symptoms that presented in the last 2 days. She was originally negative on COVID test and has been encouraged to repeat again tomorrow. Check a chest x-ray today Gastroesop hageal reflux disease without esophagitis [id number] K21.9 Stable on PPI therapy continue without changes Right side sciatica [id number] [id number] 83987 M54.31 Start prednisone 40 mg daily x5 days to calm down sciatic nerve inflammati on [id number] Teofilo Jeter MD [facility] 2-Observe [address] [place]ure[place] [id number] 09/03/2024 15:45:40 09/03/2024 16:22:23 Lumbar radiculopathy [id number] M54.16 Check baseline x-ray of the lumbosacra l spine and then proceed with MRI of the lumbar spine to evaluate disc spacing and nerve impingemen t Left side sciatica 40367 26598 93670 M54.32 Start Medrol Dosepak, Flexeril 10 mg 3 times a day as needed and home low back exercises Pain of le ft hip joint [id number] 78418 M25.552 Check baseline x-ray of the left hip [id number] Teofilo Jeter MD [facility] [address] Assurely [id number] 03/10/2025 12:07:55 03/10/2025 14:00:35 Body mass index 25-29 - overweight [id number] Z68.28 BMI is 28.3 Overweight 387221631 E66 .3 Benign ess ential hypertension 3667602 I10 stable on losartan 100mg daily. and HCTZ 12.5mg daily. Blood pressure is 130/84 Hyperlipidemia 79376536 E78.5 on statin therapy , crestor 20mg Mixed anxi ety and depressive disorder 786297786 F41.8 Stable on BuSpar 10 mg twice daily and fluoxetine 60 mg daily Long-term drug therapy 241012246 Z79.899 Prediabetes 645902721 R7 3.03 654686 5.8% A1c January of 2024 Gastroesop hageal reflux disease [id number] K21.9 [id number] Stable on pantoprazo le 40 mg daily continue without changes Vitamin D deficiency 347 73390 E55.9 35918 On high-dose vitamin-D supplement now Electrocar diogram abnormal 305208388 R94.31 368057 EKG is abnormal that was ordered by the surgeon preoperjohnna holden, we will send for Lexiscan Cardiolite stress [...] 1 [employer] (MEDICARE REPLACEMENT/ ADVANTAGE - PPO) [id number] Rachel Raman [id number] Rachel Raman 03/10/2025 1 UMR [id number] Rachel Raman [id number] Rachel Raman Notes Date Note Type Note Provider Name and Address Organization Details Recorded Time 01/22/20 24 text/htm l HyperlipidemiaReported by PatientHPIFor type of hyperlipidemia, patient reportshypercholesterolemia. For duration, patient reportschronic. For risk factors, patient reportshypertension. For control, patient reportsusually well controlled,improving, andat goal. For current therapy, patient reportscurrently taking:. For compliance, patient reportscompliantandcompliant with diet. For complications, patient reportsno coronary artery disease,no peripheral artery disease, andno cardiovascular disease. HypertensionReported by PatientHPIFor severity, patient reportsmild. For duration, patient reportshas noted for years. For onset/timing, patient reportsbetter. For alleviating factors, patient reportsmedication. For associated symptoms, patient reportsno shortness of breath,no fatigue,no palpitations,no decline in exercise capacity, andno snoring. Anxiety/DepressionReported by PatientHPIFor quality, patient reportssymptoms improved. For severity, patient reportsdenies suicidal ideations,able to maintain relationships, anddoes not interfere with activities of daily living. For context, patient reportsno major life stressors. For modifying factors, patient reportssocial supportandmedications as directed. For associated symptoms, patient reportsdenies homicidal ideations,mood good,appetite good,energy good, andmaintaining functionality. Reflux/GERDReported by PatientHPIFor aggravating factors, patient reportsworsened by food. For symptoms, patient reportsasymptomatic. For severity, patient reportsimproving. For duration, patient reportspresent 5 or more years. For context, patient reportsnon-smoker,no drug/alcohol abuse, andno drug alcohol withdrawal. For alleviating factors, patient reportsmedicationandprotein pump inhibitors. For associated symptoms, patient reportsno frequent coughing,no feeling of fullness/mass in throat,no hoarseness,no food getting stuck,no belching/burping,no nausea,no vomiting,not vomiting blood,no regurgitation,no shortness of breath,no chest pain,no heartburn,no difficulty swallowing,no pain when swallowing,no bad taste,no decreased appetite,no weight loss,no black/tarry stools,no fatigue, andno throat pain. Musculoskeletal PainReported by PatientHPIFor quality, patient reportsdull. For severity, patient reportsworsening. For location, patient reportsleft shoulderandright knee. For duration, patient reportspresent for 6-12 months. For timing, patient reportsconstant. For context, patient reportsoveruse. For aggravating factors, patient reportsmovement/positioning. For associated symptoms, patient reportsno fever,no weak limbs, andno tingling. GUNNAR Lorenzo Attn: Accounting, [address] [place], [address], [place] - [facility] 01/22/2024 23:22:50 07/23/20 24 text/htm l HyperlipidemiaReported by PatientHPIFor type of hyperlipidemia, patient reportshypercholesterolemia. For duration, patient reportschronic. For risk factors, patient reportshypertension. For control, patient reportsusually well controlled,improving, andat goal. For current therapy, patient reportscurrently taking:. For compliance, patient reportscompliantandcompliant with diet. For complications, patient reportsno coronary artery disease,no peripheral artery disease, andno cardiovascular disease. HypertensionReported by PatientHPIFor severity, patient reportsmild. For duration, patient reportshas noted for years. For onset/timing, patient reportsbetter. For alleviating factors, patient reportsmedication. For associated symptoms, patient reportsno shortness of breath,no fatigue,no palpitations,no decline in exercise capacity, andno snoring. Anxiety/DepressionReported by PatientHPIFor quality, patient reportssymptoms improved. For severity, patient reportsdenies suicidal ideations,able to maintain relationships, anddoes not interfere with activities of daily living. For context, patient reportsno major life stressors. For modifying factors, patient reportssocial supportandmedications as directed. For associated symptoms, patient reportsdenies homicidal ideations,mood good,appetite good,energy good, andmaintaining functionality. Reflux/GERDReported by PatientHPIFor aggravating factors, patient reportsworsened by food. For symptoms, patient reportsasymptomatic. For severity, patient reportsimproving. For duration, patient reportspresent 5 or more years. For context, patient reportsnon-smoker,no drug/alcohol abuse, andno drug alcohol withdrawal. For alleviating factors, patient reportsmedicationandprotein pump inhibitors. For associated symptoms, patient reportsno frequent coughing,no feeling of fullness/mass in throat,no hoarseness,no food getting stuck,no belching/burping,no nausea,no vomiting,not vomiting blood,no regurgitation,no shortness of breath,no chest pain,no heartburn,no difficulty swallowing,no pain when swallowing,no bad taste,no decreased appetite,no weight loss,no black/tarry stools,no fatigue, andno throat pain. Musculoskeletal PainReported by PatientHPIFor location, patient reportspain radiating to the buttocksandpain radiating to the legs rightbut reportsright knee(right gluteal to upper right thigh.). For quality, patient reportsdull. For severity, patient reportssame. For duration, patient reportspresent <1 month. For timing, patient reportsconstant. For context, patient reportsoveruse. For aggravating factors, patient reportsmovement/positioning. For associated symptoms, patient reportsno fever,no weak limbs, andno tingling. GUNNAR Lorenzo Attn: Accounting, [address] [place], [address], [facility] - [facility] 07/27/2024 23:11:41 09/03/20 24 text/htm l Musculoskeletal PainReported by Patientleft leg pain, states that it radiates from her buttock into her groin and down into her left knee, States that it has been persistent these last couple of day, no popping/cracking noises. She did have the sciatica in the past but it has flared back up again. There was even pain that is in her left hip joint. GUNNAR Lorenzo Attn: Accounting, [address] [place], [address], [facility] - [facility] 09/21/2024 11:46:58 03/10/20 25 text/htm l HyperlipidemiaReported by PatientHPIFor type of hyperlipidemia, patient reportshypercholesterolemia. For duration, patient reportschronic. For risk factors, patient reportshypertension. For control, patient reportsusually well controlled,improving, andat goal. For current therapy, patient reportscurrently taking:. For compliance, patient reportscompliantandcompliant with diet. For complications, patient reportsno coronary artery disease,no peripheral artery disease, andno cardiovascular disease. HypertensionReported by PatientHPIFor severity, patient reportsmild. For duration, patient reportshas noted for years. For onset/timing, patient reportsbetter. For alleviating factors, patient reportsmedication. For associated symptoms, patient reportsno shortness of breath,no fatigue,no palpitations,no decline in exercise capacity, andno snoring. Anxiety/DepressionReported by PatientHPIFor quality, patient reportssymptoms improved. For severity, patient reportsdenies suicidal ideations,able to maintain relationships, anddoes not interfere with activities of daily living. For context, patient reportsno major life stressors. For modifying factors, patient reportssocial supportandmedications as directed. For associated symptoms, patient reportsdenies homicidal ideations,mood good,appetite good,energy good, andmaintaining functionality. Reflux/GERDReported by PatientHPIFor aggravating factors, patient reportsworsened by food. For symptoms, patient reportsasymptomatic. For severity, patient reportsimproving. For duration, patient reportspresent 5 or more years. For context, patient reportsnon-smoker,no drug/alcohol abuse, andno drug alcohol withdrawal. For alleviating factors, patient reportsmedicationandprotein pump inhibitors. For associated symptoms, patient reportsno frequent coughing,no feeling of fullness/mass in throat,no hoarseness,no food getting stuck,no belching/burping,no nausea,no vomiting,not vomiting blood,no regurgitation,no shortness of breath,no chest pain,no heartburn,no difficulty swallowing,no pain when swallowing,no bad taste,no decreased appetite,no weight loss,no black/tarry stools,no fatigue, andno throat pain. Musculoskeletal PainReported by PatientHPIFor location, patient reportspain radiating to the buttocksandpain radiating to the legs rightbut reportsright knee(right gluteal to upper right thigh.). For quality, patient reportsdull. For severity, patient reportssame. For duration, patient reportspresent <1 month. For timing, patient reportsconstant. For context, patient reportsoveruse. For aggravating factors, patient reportsmovement/positioning. For associated symptoms, patient reportsno fever,no weak limbs, andno tingling. GUNNAR Lorenzo Attn: Accounting, [address] [place], [address], [facility] - [facility] 03/23/2025 01:01:28 OBGyn Episode No OBEpisode recorded.
--- OUTSIDE RECORDS SUMMARY | 2025-09-03 16:52 | XMS_ITS | Clinical Summary ---
Author Organization [facility] [employer] Address [address] [place] [address] Care Team Providers Care Washing Tub Operator Name Role Phone Dilcia Garcia Primary Care Pr ovider Source Comments [facility],non-owned Affiliates and Associated Physician Practices is amultiple site organization consisting of ambulatory clinics and hospital sitesin [place], [place], [place] and [place]. This disclosure is being madepursuant to the Care Everywhere program and may not contain all information available regarding this patient. Last updated 18.[facility] [employer] Allergies Active Allergy Reactions Criticality Noted Date Comments Morphine Nausea and/or Vomiting 07/04/2023 Nitrofurantoin Nausea and/or Vomiting 3 Sulfamethoxazole Nausea and/or Vomiting 023 Trimethoprim Nausea and/or Vomiting 07/04/2023 Medications * Be aware that medications may not be up to date on this document. Alwaysverify current medications with the patient. hydroCHLOROthiaz sarah 12.5 MG Take 1 (one) tablet by mouth once daily 03/05/20 25 Active losartan (Cozaar) 100 MG tablet Take 1 (one) tablet by mouth once daily 03/05/20 25 Active rosuvastatin (Crestor) 20 MG tablet Take 1 (one) tablet by mouth once daily 03/05/20 25 Active pantoprazole EC (Protonix) 40 MG tablet Take 1 (one) tablet by mouth once daily 03/04/20 25 Active busPIRone (Buspar) 15 MG tablet 1 tablet Oral 3 times a day; Duration: 90 days 07/07/20 25 025 Active clobetasol (Temovate) 0.05 % cream APPLY EXTERNALLY TO THE AFFECTED AREA TWICE DAILY FOR 3 WEEKS 07/22/20 Active gabapentin (Neurontin) 300 MG capsule TAKE 1 CAPSULE BY MOUTH EVERY DAY AT BEDTIME Active Lavender Oil (CalmAid) 80 MG CAPS as directed Active sertraline (Zoloft) 100 MG tablet 1.5 tablet Orally daily; Duration: 90 days 05/12/20 25 Active terbinafine (LamISIL) 250 MG tablet Oral; Duration: 90 Days Active scopolamine (Transderm-Scop) 1 MG patch APPLY 1 PATCH TOPICALLY TO THE SKIN EVERY 72 HOURS NEEDED 08/05/20 Active acetaminophen (Tylenol) 500 MG capsule Take 2 (two) capsules by mouth 3 times daily Take 3x/day for 10 days, then as needed for pain 05/07/20 25 025 Discontinu ed(Tx Complete) oxyCODONE, immediate release, (Roxicodone) 10 MG tabletIndication s:Postoperative pain Take 0.5 (one-half) tablet to 1 (one) tablet by mouth every 4 hours as needed for Pain 42 tablet 5 1:45 PM CDT 05/07/20 25 025 Discontinu ed(Tx Complete) amoxicillin (Amoxil) 500 MG capsuleIndicatio ns:S/P total left hip arthroplasty Take 4 (four) capsules by mouth pre-Procedure once for 1 dose one hour prior to dental appointment 4 capsule 08/07/20 25 025 Discontinu ed(Reorder ) amoxicillin (Amoxil) 500 MG capsuleIndicatio ns:S/P total left hip arthroplasty Take 4 (four) capsules by mouth pre-Procedure once for 1 dose one hour prior to dental appointment 4 capsule 08/19/20 25 025 Active Problems Problem Noted Date Diagnosed Date Encounter for surgical after care following surgery on the digestive system 08/06/2025 Esophageal laceration 08/06/2025 Feeling suicidal 08/06/2025 Hematoma 08/06/2025 Mild recurrent major depression 08/06/2025 Paraesophageal hiatal hernia 08/06/2025 Prolapse of vaginal vault after hysterectomy Severe major depression, sin gle episode, without psychotic features 08/06/2025 BHUMIKA (stress urinary incontinence, female) 2024 Contusion of hand 08/06/2025 Electrocardiogram abnormal 03/23/2025 Prediabetes 03/10/2025 Anemia 02/23/2025 Bursitis of hip 02/23/2025 Dyspnea on exertion 02/23/2025 Weight gain 02/23/2025 Vitamin D deficiency 02/23/2025 Multiple gastric erosions 02/23/2025 Low back pain 02/23/2025 Iron deficiency anemia 02/23/2025 High blood pressure 02/23/2025 Neuralgia of left sciatic nerve 09/21/2024 Lumbar radiculopathy 09/21/2024 Gastroesophageal reflux disease without esophagi tis 07/27/2024 Neuralgia of right sciatic nerve 07/27/2024 Encounter for general adult medical examination with abnormal findings 07/23/2024 Overweight 07/23/2024 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 Hyperlipidemia 01/21/2024 Abnormal serum total protein level 07/24/2022 Benign essential hypertension 05/01/2022 Decreased hearing 05/01/2022 Mixed anxiety and depressive disorder 05/01/2022 Resolved Problems Problem Noted Date Diagnosed Date Resolved Date Arthritis of left hip 05/07/20252024 Cough 02/23/2025 03/23/2025 Pain of left hip joint 09/21/202408/06 Blood glucose abnormal 07/23/202408/06 Pain in joint of right shoulder 05/02/2022 08/06/2025 Encounters Date Type Department Care Team Description 08/06/2025 12:30 PM CDT Office Visit [facility] [address] [place] [address], [address] [place] [phone] Karen Montana PA-C S/P total left hip arthroplasty, DOS 05/07/2025 (Primary Dx) 08/06/2025 11:55 AM CDT Ancillary Procedure [facility] - Radiology [address] [place] [phone] Karen Montana PA-C S/P total left hip arthroplasty 08/06/2025 Refill [facility] [address] [place] [address] [address] [place] [phone] Chan Sandoval IV, MD MEDICATION REFILL 06/22/2025 11:30 AM CDT Office Visit [facility] [address] [facility], [facility] [address] [place] [phone] Karen Montana PA-C S/P total left hip arthroplasty, DOS 05/07/25 (Primary Dx) 06/08/2025 Telephone [facility] [address] [facility], [facility] [address] [place] [phone] Karen Montana PA-C Question from Last 3 Months Family History Medical [...] on file Legal Sex Female 2:01 PM DOBBY [employer] 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 Gender Identity Not on file Sexual Orientation [...] 05/07/2025 7:02 AM CDT Plan of Treatment Health Maintenance Due Date Last Done Comments [...] 2010 ZOSTER VACCINE (1 of 2) 2010 MEDICARE AWV CALENDAR YEAR 2024 COVID-19 VACCINE ( - 2024- season) 2025 08/04/2022, 09/23/2021, 11/29/2020, Additional history exists INFLUENZA VACCINE (#1) 2025 , 09/11/2019, 08/19/2016, [...] this topic Medical Devices Implanted Type Area Treasury Director Device Identifier Shelf Expiration Date Model / Serial / Lot Shell Actb 48mm Hip 3 Hl Clr Cd [place] Implanted:Qty : 1 on 05/07/2025 by Chan Sandoval IV, MD at [facility] Left: Hip [employer] 01/26/2035 [id number] / / [id number] Screw 6.5mm 40mm Actb Dagoberto Slf-Tap Trlg Implanted:Qty : 1 on 05/07/2025 by Chan Sandoval IV, MD at [facility] Left: Hip [employer] 04/07/2034 [id number] / / [id number] Lit Liner Actb G7 +5mm C Ofst 32mm Lngvt Implanted:Qty : 1 on 05/07/2025 by Chan Sandoval IV, MD at [facility] Left: Hip [employer] 08/23/2025 [id number] BILL ONLY / / [id number] Stem Fem 136mm Hip 1 Lat Ofst Intgr-+ Implanted:Qty : 1 on 05/07/2025 by Chan Sandoval IV, MD at [facility] Left: Hip [employer] 10/12/2028 [id number] / / [id number] Head Fem +4 11/01 Tpr 32mm Hip Oxnm Sng Implanted:Qty : 1 on 05/07/2025 by Chan Sandoval IV, MD at [facility] Left: Hip [employer] 04/08/2034 [id number] / / [id number] Explanted Type Area Treasury Director Device Identifier Shelf Expiration Date Model / Serial / Lot Pin Hlf 255mm 5mm Jtx Lng Orth Ss 45mm Explanted:Qty: 1 on 05/07/2025 by Chan Sandoval IV, MD at [facility] Left: Hip [employer] [id number] / / Procedures Procedure Name Priority Date/Time Associated Diagnosis Comments XR HIP LEFT 2VW OR MORE Routine 08/06/2025 12:01 PM CDT S/P total left hip arthroplasty COMPREHENSIVE METABOLIC PANEL Routine 03/06/2025 12:20 PM CDT Pre-op evaluation DEXA BONE DENSITY AXIAL SKELETON Routine 02/16/2025 11:20 AM CDT Post-menopausal from Last 3 Months or Most Recently Relevant to Health Maintenance Results * XR Hip Left 2Vw or More (08/06/2025 12:01 PM CDT) Narrative [facility] [address] - 08/06/2025 12:01 PM CDT Please see progress note in Epic for results. us Karen Montana PA-C DIAGNOSTIC IMAGING ORDERAB LES Final Result [facility] [address] * (ABNORMAL) COMPREHENSIVE METABOLIC PANEL (03/06/2025 12:20 PM CDT) Glucose 124(H) 70 - 99 mg/dL 03/06/2025 12:46 PM CDT [facility] Sodium 141 136 - 145 mmol/L 03/06/2025 12:46 PM CDT [facility] Potassium 4.0 3.5 - 5.1 mmol/L 03/06/2025 12:46 PM CDT [facility] Chloride 108(H) 98 - 107 mmol/L 03/06/2025 12:46 PM CDT [facility] CO2 26 22 - 29 mmol/L 03/06/2025 12:46 PM CDT [facility] Calcium 8.9 8.4 - 10.4 mg/dL 03/06/2025 12:46 PM CDT [facility] Anion Gap 7 6 - 16 mmol/L 03/06/2025 12:46 PM CDT [facility] BUN 25 7 - 26 mg/dL 03/06/2025 12:46 PM CDT [facility] Creatinine 0.75 0.57 - 1.11 mg/dL 03/06/2025 12:46 PM CDT [facility] Alkaline Phosphatase 104 40 - 150 U/L 03/06/2025 12:46 PM CDT [facility] ALT 25 6 - 57 U/L 03/06/2025 12:46 PM CDT [facility] AST 26 10 - 48 U/L 03/06/2025 12:46 PM CDT [facility] Protein Total 6.6 6.4 - 8.3 gm/dL 03/06/2025 12:46 PM CDT [facility] Albumin 3.6 3.4 - 5.0 gm/dL 03/06/2025 12:46 PM CDT [facility] Bilirubin Total 0.4 0.2 - 1.2 mg/dL 03/06/2025 12:46 PM CDT [facility] eGFR by CKD-EPI 88(L) >=90 mL/min/1.7 3 m2 03/06/2025 12:46 PM CDT [facility] Blood BLOOD SPECIMEN / Unknown Venipuncture / Unknown 03/06/2025 12:20 PM CDT 03/06/2025 12:25 PM CDT [facility] HOLDER-ENGINE REPAIRER LAB - CHEMISTRY ORDERABLE S Final Result [facility] [address] [place] [address] * Dexa Bone Density Axial [...] 9:52 AM 05/08/2025 5:07 PM Care Teams Washing Tub Operator Relationship Specialty Start Date End Date Dilcia Garcia PA [address] [place] [address] [place] [id number] PCP - General Physician Can Marker 05/05/24
--- OUTSIDE RECORDS SUMMARY | 2025-09-03 16:52 | XMS_ITS | Patient Health Record ---
Author Organization [facility] Elias Borges Urzeda Address [address] [place] [address] Care Team Providers Care Messenger Copy Name Role Phone Dilcia Dhillon Primary Care Provider Aziza Yanez Unavailable [phone] Mindy Hernández Unavailable [phone] Callum Hernandes Unavailable [phone] Allergies No Known Allergies Results Component Value Reference Range Notes Benzodiazepines Reviewed date:04/19/2025 08:26:48 PM Interpretation: Performing Lab:[address] [place] [address], [address] [place] [address], Director - [id number] Notes/Report: An exception occurred while processing this report and so it has incomplete data. Please contact [employer] for assistance. Not Medicated Consistent Not Medicated Consistent Not Medicated Consistent Not Medicated Consistent Not Medicated Consistent Not Medicated Consistent Not Medicated Consistent Not Medicated Consistent Not Medicated Consistent Not Medicated Consistent 7-Aminoclonazepam NEGATIVE 20.0 ng/mL Temazepam NEGATIVE 40.0 ng/mL Oxazepam NEGATIVE 40.0 ng/mL Midazolam NEGATIVE 40.0 ng/mL Lorazepam NEGATIVE 40.0 ng/mL Nordiazepam NEGATIVE 40.0 ng/mL Diazepam NEGATIVE 40.0 ng/mL Clonazepam NEGATIVE 20.0 ng/mL Hydroxyalprazolam NEGATIVE 20.0 ng/mL Alprazolam NEGATIVE 20.0 ng/mL PDF Report [email or web address] C _ORU UDT Reviewed date:04/09/2025 12:39:42 PM Interpretation: Performing Lab: Notes/Report: THC N 0 - 50 ng/ml Cocaine N 0 - 300 ng/ml Amphetamine N 0 - 1000 ng/ml Buprenorphine (BUP) N 0 - 10 ng/ml Secobarbital (Bar) N 0 - 300 ng/ml Oxazepam (BZO) P 0 - 300 ng/ml [id number]-8, 3-diphenylpyrr olidine (EDDP) N 0 - 300 ng/ml Methamphetamine (MET) N 0 - 1000 ng/ml Methylenedioxymethamphetamine (MDMA) N 0 - 500 ng/ml Morphine (MOP 300/BOT6086) N 0 - 300 ng/ml Methadone (MTD) N 0 - 300 ng/ml Phencyclidine (PCP) N 0 - 25 ng/ml Nortriptyline (TCA) N 0 - 1000 ng/ml Oxycodone N 0 - 300 ng/ml Reason For Referral No Information Medications Medication SIG (Take, Route, Frequency, Duration) Notes Start Date End Date Status Pantoprazole Sodium 40 MG Tablet Delayed Release Oral; Duration: 30 Days Active Rosuvastatin Calcium 20 MG Tablet 1 tablet Oral daily; Duration: 30 days Active Sertraline HCl 100 MG Tablet 1.5 tablet Orally daily; Duration: 90 days 08/05/2025 Active Gabapentin 300 MG Capsule Oral; Duration : 30 Days Active busPIRone HCl 15 MG Tablet 1 tablet Oral 3 times a day; Duration: 90 days 08/05/2025 11/03/2025 Active Terbinafine HCl 250 MG Tablet Oral; Dura tion: 90 Days Active Vitamin D Active hydroCHLOROthiazide 12.5 MG Tablet Oral; Duration: 30 Days Active CalmAid 80 MG Capsule as directed Orally Active Losartan Potassium 50 MG Tablet 1 tablet Oral daily; Duration: 30 days Active Social History Tobacco Use: Social History Observation Description Date Details (start date - stop date) Never Smoker NA - NA Sex Assigned At : Social History Observation Description Sex Assigned At Female Social History Miscellaneous: Social Info Question Answer Notes Safety issues: Do you feel safe at home? Yes Are there any firearms in the house? No Social History Social Info Question Answer Notes Household: Marital Status: Number of Adults in household: 2 Number of Children in Household: 1 Level of Education: Finished College Drug/Alcohol: Social Info Question Answer Notes Drugs Have you used drugs other than those for medical reasons in the past 12 months? No AUDIT-C (Standard) Did you have a drink containing alcohol in the past year? Yes How often did you have a drink containing alcohol in the past year? Monthly or less (1 point) How many drinks did you have on a typical day when you were drinking in the past year? 1 or 2 drinks (0 point) How often did you have six or more drinks on one occasion in the past year? 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 Problems Problem Type SNOMED Code ICD Code Onset Dates Problem Status W/U Status Risk Notes Problem Mild recurrent major depression (55232223) Major depressive disorder, recurrent, mild (F33.0) Active confirmed improving Problem Generalized anxiety disorder (97274379) Generalized anxiety disorder (F41.1) Active confirmed improving Problem Feeling suicidal (022597235) Suicidal ideations (R45.851) Active confirmed Problem Screening for cardiovascular system disease (156949351) Encounter for screening for cardiovascular disorders (Z13.6) Active confirmed Problem Depression Screening (053160632) Encounter for screening for depression (Z13.31) Active confirmed Problem Severe major depression, single episode, without psychotic features (15888848) MDD (major depressive disorder), severe (F32.2) Active confirmed Vital Signs Heart Rate 60 /min 08/05/2025 Blood pressure diastolic 73 mm Hg 08/05/2025 Weight-kg 68.95 kg 08/05/2025 Blood pressure systolic 115 mm Hg 08/05/2025 Weight 152 lbs 08/05/2025 Encounters Encounter Location Date Provider Diagnosis [employer] [facility] [address] [address] 03/27/2025 Aziza Johnston Generalized anxiety disorder F41.1 ; Major depressive disorder, recurrent, mild F33.0 ; Suicidal ideations R45.851 ; Encounter for screening for depression Z13.31 and Encounter for screening for cardiovascular disorders Z13.6 [employer] [facility] [place] [address] 04/09/2025 Aziza Hinderliter Generalized anxiety disorder F41.1 ; Major depressive disorder, recurrent, mild F33.0 ; Suicidal ideations R45.851 and Encounter for screening for depression Z13.31 [employer] [employer] [facility] [place] [address] 04/09/2025 Callum Clubb Generalized anxiety disorder F41.1 ; Major depressive disorder, recurrent, mild F33.0 ; Encounter for screening for depression Z13.31 and Benign essential HTN I10 [facility] [employer] [facility], [employer] [address] [place] [address] 04/16/2025 Callum Clubb Suicidal ideations R45.851 ; MDD (major depressive disorder), severe F32.2 ; Encounter for screening for depression Z13.31 ; Encounter for screening for cardiovascular disorders Z13.6 and Generalized anxiety disorder F41.1 [facility] [employer] [facility], [employer] [address] [place] [address] 04/17/2025 Aziza Hinderliter Major depressive disorder, recurrent, mild F33.0 ; Suicidal ideations R45.851 ; Generalized anxiety disorder F41.1 and Encounter for screening for depression Z13.31 [facility] [employer] [facility], [employer] [address] [place] [address] 04/23/2025 Aziza Hinderliter Major depressive disorder, recurrent, mild F33.0 ; Generalized anxiety disorder F41.1 and Encounter for screening for depression Z13.31 [facility] [employer] [employer] [address] [place] [address] 04/23/2025 Callum Clubb Major depressive disorder, recurrent, mild F33.0 ; Generalized anxiety disorder F41.1 ; Encounter for screening for depression Z13.31 ; Encounter for screening for cardiovascular disorders Z13.6 and Benign essential HTN I10 [employer] [facility], [employer] [address] [place] [address] 05/06/2025 Callum Clubb Major depressive disorder, recurrent, mild F33.0 ; Generalized anxiety disorder F41.1 ; Benign essential HTN I10 and Negative depression screening Z13.31 [facility] [employer] [facility], [employer] [address] [place] [address] 05/06/2025 Aziza Hinderliter Generalized anxiety disorder F41.1 ; Major depressive disorder, recurrent, mild F33.0 and Encounter for screening for depression Z13.31 [employer] [address] [place] [address] 06/03/2025 Aziza Hinderliter Major depressive disorder, recurrent, mild F33.0 ; Generalized anxiety disorder F41.1 and Encounter for screening for depression Z13.31 [facility], [employer] [address] [place] [address] 06/03/2025 Callum Clubb Major depressive disorder, recurrent, mild F33.0 ; Generalized anxiety disorder F41.1 and Benign essential HTN I10 [facility], [employer] [address] [place] [address] 07/07/2025 Callum Clubb Major depressive disorder, recurrent, mild F33.0 ; Generalized anxiety disorder F41.1 and Benign essential HTN I10 [facility] [address] [place] [address] 08/05/2025 Mindyfay Bermanphuong Major depressive disorder, recurrent, mild F33.0 and Generalized anxiety disorder F41.1 [facility] [address] [place] [address] 04/15/2025 Aziza Johnston [facility], [facility] [address] [place] [address] 04/15/2025 Aziza Johnston [facility], [facility] [address] [place] [address] 05/06/2025 Callum Clubb [facility], [facility] [address] [place] [address] 05/12/2025 Callum Clubb Major depressive disorder, recurrent, mild F33.0 [facility] [address] [place] [address] 05/12/2025 Aziza Johnston [facility], [facility] [address] [place] [address] 05/19/2025 Aziza Johnston [facility], [facility] [address] [place] [address] 05/20/2025 Aziza Johnston [facility], [facility] [address] [place] [address] 05/20/2025 Aziza Johnston [facility], [facility] [address] [place] [address] 06/30/2025 Aziza Johnston Assessments Encounter Date Diagnosis (ICD Code) Assessment Notes Treatment Notes Treatment Clinical Notes Section Notes 03/27/2025 Major depressive disorder, recurrent, mild (ICD-10 - F33.0) 1. Major Depressive Disorder - Patient reports symptoms consistent with Major Depressive Disorder, including anhedonia, lack of motivation, passive suicidal ideation, and sleep disturbances. - Difficulty initiating and maintaining sleep, with only 3-4 hours of solid sleep per night. - Expresses frustration with ineffectiveness of current medication regimen. - Depression impacting quality of life and ability to engage in desired long term activities. Plan: - Schedule therapy sessions every two weeks as requested by patient. - Explore and address communication barriers between Rachel and her partner Hafsa regarding mental health concerns. - Meet with Callum after this appointment for medication management reevaluation. 2. Generalized Anxiety Disorder - Patient describes symptoms consistent with Generalized Anxiety Disorder, including feeling of impending doom without apparent triggers. - Reports physical manifestations: heavy weight in stomach, past experiences of chest pain. - Experiences racing thoughts, particularly when trying to sleep at night. - Anxiety interfering with ability to enjoy long term and complete household tasks. Plan: - Teach and practice TIP skills for managing anxiety: - Temperature (cold): Using ice or cold water for grounding. - Intense exercise: 20 minutes of physical activity to increase heart rate. - Paced breathing: Square breathing technique (4-4-4-4 count). - Paired muscle relaxation: Tensing and releasing muscles, avoiding jaw clenching. - Encourage practicing anxiety management techniques when not acutely anxious. Follow-up: - Continue with scheduled therapy sessions every two weeks. 03/27/2025 Generalized anxiety disorder (ICD-10 - F41.1) 1. Major Depressive Disorder - Patient reports symptoms consistent with Major Depressive Disorder, including anhedonia, lack of motivation, passive suicidal ideation, and sleep disturbances. - Difficulty initiating and maintaining sleep, with only 3-4 hours of solid sleep per night. - Expresses frustration with ineffectiveness of current medication regimen. - Depression impacting quality of life and ability to engage in desired long term activities. Plan: - Schedule therapy sessions every two weeks as requested by patient. - Explore and address communication barriers between Rachel and her partner Hafsa regarding mental health concerns. - Meet with Callum after this appointment for medication management reevaluation. 2. Generalized Anxiety Disorder - Patient describes symptoms consistent with Generalized Anxiety Disorder, including feeling of impending doom without apparent triggers. - Reports physical manifestations: heavy weight in stomach, past experiences of chest pain. - Experiences racing thoughts, particularly when trying to sleep at night. - Anxiety interfering with ability to enjoy long term and complete household tasks. Plan: - Teach and practice TIP skills for managing anxiety: - Temperature (cold): Using ice or cold water for grounding. - Intense exercise: 20 minutes of physical activity to increase heart rate. - Paced breathing: Square breathing technique (4-4-4-4 count). - Paired muscle relaxation: Tensing and releasing muscles, avoiding jaw clenching. - Encourage practicing anxiety management techniques when not acutely anxious. Follow-up: - Continue with scheduled therapy sessions every two weeks. 04/09/2025 Major depressive disorder, recurrent, mild (ICD-10 - F33.0) Generalized Anxiety Disorder Assessment: Rachel reports experiencing increased anxiety, particularly regarding her son's first solo train travel. She describes physical symptoms of anxiety, including stomach discomfort. Rachel acknowledges difficulty in managing her anxiety despite being on medication. She has been using deep breathing techniques but hasn't tried other coping strategies from TIP like ice or exercise. Rachel's anxiety appears to be exacerbated by situations where she feels a lack of control, such as her son's independent travel or potential accidents during trips. Evening times are reported as particularly challenging for her anxiety symptoms. The patient expresses a desire to learn how to manage her anxiety beyond medication. Plan: - Continue medication as prescribed, following up with Callum for medication management today - Implement visualization exercises such as Leaves on a Stream for anxiety management - Practice using the 5 senses for anxiety reduction and grounding - Utilize guided meditations on YouTube as a free resource, aiming for 2-5 minutes daily - Incorporate prayer as a form of meditation, focusing on intentional thoughts Mood Disturbance (Irritability and Anger) Assessment: Rachel reports recent episodes of unexplained anger and irritability, which is a new development for her. She describes a recent incident where she felt close to snapping and was easily irritated by her partner's actions. The following day, she experienced a low mood. Rachel notes that these anger episodes have been recent and without identifiable causes. She also mentions a change in her ability to cry, stating that she used to cry easily but now rarely cries, even when feeling the need to do so. These symptoms suggest a potential mood disturbance, which may be related to medication effects, hormonal changes, or increased stress. Plan: - Monitor mood changes, particularly episodes of anger and irritability - Explore potential triggers or stressors contributing to mood changes - Implement stress reduction techniques - Encourage patient to report any significant mood changes or persistent symptoms 04/09/2025 Generalized anxiety disorder (ICD-10 - F41.1) Generalized Anxiety Disorder Assessment: Rachel reports experiencing increased anxiety, particularly regarding her son's first solo train travel. She describes physical symptoms of anxiety, including stomach discomfort. Rachel acknowledges difficulty in managing her anxiety despite being on medication. She has been using deep breathing techniques but hasn't tried other coping strategies from TIP like ice or exercise. Rachel's anxiety appears to be exacerbated by situations where she feels a lack of control, such as her son's independent travel or potential accidents during trips. Evening times are reported as particularly challenging for her anxiety symptoms. The patient expresses a desire to learn how to manage her anxiety beyond medication. Plan: - Continue medication as prescribed, following up with Callum for medication management today - Implement visualization exercises such as Leaves on a Stream for anxiety management - Practice using the 5 senses for anxiety reduction and grounding - Utilize guided meditations on YouTube as a free resource, aiming for 2-5 minutes daily - Incorporate prayer as a form of meditation, focusing on intentional thoughts Mood Disturbance (Irritability and Anger) Assessment: Rachel reports recent episodes of unexplained anger and irritability, which is a new development for her. She describes a recent incident where she felt close to snapping and was easily irritated by her partner's actions. The following day, she experienced a low mood. Rachel notes that these anger episodes have been recent and without identifiable causes. She also mentions a change in her ability to cry, stating that she used to cry easily but now rarely cries, even when feeling the need to do so. These symptoms suggest a potential mood disturbance, which may be related to medication effects, hormonal changes, or increased stress. Plan: - Monitor mood changes, particularly episodes of anger and irritability - Explore potential triggers or stressors contributing to mood changes - Implement stress reduction techniques - Encourage patient to report any significant mood changes or persistent symptoms 04/09/2025 Major depressive disorder, recurrent, mild (ICD-10 - F33.0) 04/09/2025 Generalized anxiety disorder (ICD-10 - F41.1) Week 1 Prozac: Reduce to 40 mg daily Sertraline: Start 25 mg daily Week 2 Prozac: Reduce to 20 mg daily Sertraline: Increase to 50 mg daily Week 3 Prozac: Reduce to 10 mg daily or stop if well toleratedSertr meagan: Maintain 50 mg daily, consider increasing to 75 mg based on response Week 4 Stop Prozac Sertraline: Increase to 75-100 mg daily if needed 04/16/2025 Suicidal ideations (ICD-10 - R45.851) 04/16/2025 MDD (major depressive disorder), severe (ICD-10 - F32.2) continue taper schedule from prozac to sertraline prozac 60 mg daily sertraline 25 mg daily 04/17/2025 Major depressive disorder, recurrent, mild (ICD-10 - F33.0) 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 She describes experiencing severe depression on Sunday and Sunday of the past week, with some improvement noted today. The patient also reports waking up agitated and angry this morning without an identifiable trigger. These symptoms appear to be long-standing, as the patient states she has been struggling my entire life. Recent life stressors, including long term and the loss of her mother 5 years ago, may be contributing factors. The patient's chronic pain from needing a hip replacement may also be impacting her mood. Recent medication adjustments include switching from fluoxetine to sertraline last Sunday, then reverting to fluoxetine and adding lithium yesterday. These frequent medication changes may be contributing to the patient's emotional instability. Plan: - Continue medication as prescribed by Callum - Monitor mood fluctuations and response to medication changes - Encourage use of coping strategies such as watching familiar movies and crocheting - Introduce an alternative to visualization techniques for letting go of unwanted emotions, such as writing down thoughts and physically discarding them - Validate patient's feelings of agitation, especially in relation to chronic pain - Follow up in one week Chronic Pain and Pending Hip Replacement Surgery Assessment: Patient reports increased pain due to discontinuation of arthritis medication in preparation for potential hip replacement surgery. The surgery is currently scheduled for May 07 but may occur as early as next week if there is a cancellation. Chronic pain is likely contributing to mood disturbances and sleep issues. Patient expresses concern about the surgery's effectiveness in alleviating all her pain. 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 She expresses hurt over lack of contact from former colleagues and poor attendance at her long term dinner. Additionally, the patient is still processing the loss of her mother 5 years ago, with some unresolved guilt over her mother's end-of-life care. These factors may be contributing to her current mood symptoms and sense of identity loss. 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 She describes experiencing severe depression on Sunday and Sunday of the past week, with some improvement noted today. The patient also reports waking up agitated and angry this morning without an identifiable trigger. These symptoms appear to be long-standing, as the patient states she has been struggling my entire life. Recent life stressors, including long term and the loss of her mother 5 years ago, may be contributing factors. The patient's chronic pain from needing a hip replacement may also be impacting her mood. Recent medication adjustments include switching from fluoxetine to sertraline last Sunday, then reverting to fluoxetine and adding lithium yesterday. These frequent medication changes may be contributing to the patient's emotional instability. Plan: - Continue medication as prescribed by Callum - Monitor mood fluctuations and response to medication changes - Encourage use of coping strategies such as watching familiar movies and crocheting - Introduce an alternative to visualization techniques for letting go of unwanted emotions, such as writing down thoughts and physically discarding them - Validate patient's feelings of agitation, especially in relation to chronic pain - Follow up in one week Chronic Pain and Pending Hip Replacement Surgery Assessment: Patient reports increased pain due to discontinuation of arthritis medication in preparation for potential hip replacement surgery. The surgery is currently scheduled for May 07 but may occur as early as next week if there is a cancellation. Chronic pain is likely contributing to mood disturbances and sleep issues. Patient expresses concern about the surgery's effectiveness in alleviating all her pain. 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 She expresses hurt over lack of contact from former colleagues and poor attendance at her long term dinner. Additionally, the patient is still processing the loss of her mother 5 years ago, with some unresolved guilt over her mother's end-of-life care. These factors may be contributing to her current mood symptoms and sense of identity loss. Plan: - Explore patient's feelings about long term and strategies for finding new purpose - Discuss grief process and validate patient's emotions regarding her mother's - Encourage planned train trip to celebrate the lives of patient's and partner's mothers - Support patient in developing new social connections to replace work relationships - Continue to utilize partner's support and joint friendships as part of support system 04/23/2025 Major depressive disorder, recurrent, mild (ICD-10 - F33.0) Anxiety Assessment: Rachel reports experiencing anxiety, particularly related to her upcoming hip surgery scheduled for May 07, two weeks from the date of this session. She expresses concern about the surgery's effectiveness in alleviating her pain, which extends beyond her hip to her entire leg. The anxiety has been exacerbated by recent changes in her medication regimen, including discontinuation of certain medications in preparation for surgery. Despite these challenges, Rachel has been implementing coping strategies such as journaling, breathing exercises, and self-talk to manage her anxiety. She reports some success with these techniques, noting that while anxiety is still present, it is not as bad as it was. Plan: - Continue to encourage use of coping strategies: journaling, breathing exercises, and self-talk - Discuss and reinforce fact-checking techniques to address negative thoughts - Monitor anxiety levels, especially in relation to medication changes and upcoming surgery - Follow up in two weeks to assess anxiety management and provide support around the time of surgery Chronic Pain Management Assessment: Rachel is experiencing chronic pain in her leg and hip, which was initially investigated as back pain due to a bulging disc. Subsequent evaluations, including an x-ray and neurologist consultation, identified the hip as the primary source of pain. A steroid injection in the hip previously provided significant relief, confirming the diagnosis. Currently, Rachel is unable to receive further injections due to the upcoming surgery. She reports variable pain levels, which appear to be influenced by her medication regimen, which has been adjusted in preparation for surgery. Plan: - Continue to monitor pain levels, especially in relation to medication changes - Encourage ongoing communication about pain levels and their impact on daily activities Self-Care and Coping Strategies Assessment: Rachel has been making efforts to engage in self-care activities, showing improvement in her ability to focus on personal needs. She reports increased interest and engagement in crocheting, online tamara, and reading. Rachel acknowledges the challenge of prioritizing self-care due to her tendency to focus on caring for others. She has been utilizing a light therapy box as part of her treatment regimen. Plan: - Reinforce the importance of self-care, especially during the recovery period - Encourage continued use of enjoyable activities (crocheting, tamara, reading) as coping strategies - Continue use of light therapy box - Explore additional self-care activities that can be incorporated into daily routine - Discuss strategies for balancing self-care with caring for others 04/23/2025 Generalized anxiety disorder (ICD-10 - F41.1) Anxiety Assessment: Rachel reports experiencing anxiety, particularly related to her upcoming hip surgery scheduled for May 07, two weeks from the date of this session. She expresses concern about the surgery's effectiveness in alleviating her pain, which extends beyond her hip to her entire leg. The anxiety has been exacerbated by recent changes in her medication regimen, including discontinuation of certain medications in preparation for surgery. Despite these challenges, Rachel has been implementing coping strategies such as journaling, breathing exercises, and self-talk to manage her anxiety. She reports some success with these techniques, noting that while anxiety is still present, it is not as bad as it was. Plan: - Continue to encourage use of coping strategies: journaling, breathing exercises, and self-talk - Discuss and reinforce fact-checking techniques to address negative thoughts - Monitor anxiety levels, especially in relation to medication changes and upcoming surgery - Follow up in two weeks to assess anxiety management and provide support around the time of surgery Chronic Pain Management Assessment: Rachel is experiencing chronic pain in her leg and hip, which was initially investigated as back pain due to a bulging disc. Subsequent evaluations, including an x-ray and neurologist consultation, identified the hip as the primary source of pain. A steroid injection in the hip previously provided significant relief, confirming the diagnosis. Currently, Rachel is unable to receive further injections due to the upcoming surgery. She reports variable pain levels, which appear to be influenced by her medication regimen, which has been adjusted in preparation for surgery. Plan: - Continue to monitor pain levels, especially in relation to medication changes - Encourage ongoing communication about pain levels and their impact on daily activities Self-Care and Coping Strategies Assessment: Rachel has been making efforts to engage in self-care activities, showing improvement in her ability to focus on personal needs. She reports increased interest and engagement in crocheting, online tamara, and reading. Rachel acknowledges the challenge of prioritizing self-care due to her tendency to focus on caring for others. She has been utilizing a light therapy box as part of her treatment regimen. Plan: - Reinforce the importance of self-care, especially during the recovery period - Encourage continued use of enjoyable activities (crocheting, tamara, reading) as coping strategies - Continue use of light therapy box - Explore additional self-care activities that can be incorporated into daily routine - Discuss strategies for balancing self-care with caring for others 04/23/2025 Major depressive disorder, recurrent, mild (ICD-10 - F33.0) improving Patient had reduction in suicidal ideation and/or behavior upon follow-up assessment within 120 days of index assessment ([id number]) 04/23/2025 Generalized anxiety disorder (ICD-10 - F41.1) improving Patient had reduction in suicidal ideation and/or behavior upon follow-up assessment within 120 days of index assessment ([id number]) 05/06/2025 Major depressive disorder, recurrent, mild (ICD-10 - F33.0) 05/06/2025 Generalized anxiety disorder (ICD-10 - F41.1) 05/06/2025 Major depressive disorder, recurrent, mild (ICD-10 - F33.0) Anxiety Assessment: Patient reports feeling nervous about upcoming surgery scheduled for tomorrow. She has been utilizing breathing techniques to manage her anxiety. The patient's anxiety appears to be situational and related to the impending surgical procedure. Despite feeling anxious, she demonstrates a positive outlook and determination to get through the surgery, recognizing the potential benefits for her mobility and pain relief. Plan: - Continue practicing breathing exercises for anxiety management - Encourage use of positive self-talk and focusing on short-term nature of surgical anxiety - Follow up in one month, with option to return sooner if needed Depression with Suicidal Ideation Assessment: Patient reports a history of intermittent suicidal thoughts without plan or intent to act. These thoughts were described as intrusive and occurring on bad days. Since a recent medication change, the patient reports improvement in these symptoms. She has been open about communicating these thoughts when they occur and understands the importance of reporting any recurrence. Plan: - Continue current medication regimen as prescribed by Callum - Monitor for return of suicidal thoughts - Patient to contact both therapist and prescriber immediately if suicidal thoughts recur - Maintain open communication about mood changes and suicidal ideation Coping Strategies and Self-Care Assessment: Patient reports continued use of journaling to process difficult emotions, noting a decrease in the need for this coping strategy recently. She has been implementing breathing techniques effectively and is considering returning to cooking as a form of self-care and routine establishment. Plan: - Continue journaling as needed for emotional processing - Encourage gradual return to enjoyable activities like cooking, as tolerated post-surgery - Maintain use of breathing techniques for stress management 05/06/2025 Generalized anxiety disorder (ICD-10 - F41.1) Anxiety Assessment: Patient reports feeling nervous about upcoming surgery scheduled for tomorrow. She has been utilizing breathing techniques to manage her anxiety. The patient's anxiety appears to be situational and related to the impending surgical procedure. Despite feeling anxious, she demonstrates a positive outlook and determination to get through the surgery, recognizing the potential benefits for her mobility and pain relief. Plan: - Continue practicing breathing exercises for anxiety management - Encourage use of positive self-talk and focusing on short-term nature of surgical anxiety - Follow up in one month, with option to return sooner if needed Depression with Suicidal Ideation Assessment: Patient reports a history of intermittent suicidal thoughts without plan or intent to act. These thoughts were described as intrusive and occurring on bad days. Since a recent medication change, the patient reports improvement in these symptoms. She has been open about communicating these thoughts when they occur and understands the importance of reporting any recurrence. Plan: - Continue current medication regimen as prescribed by Callum - Monitor for return of suicidal thoughts - Patient to contact both therapist and prescriber immediately if suicidal thoughts recur - Maintain open communication about mood changes and suicidal ideation Coping Strategies and Self-Care Assessment: Patient reports continued use of journaling to process difficult emotions, noting a decrease in the need for this coping strategy recently. She has been implementing breathing techniques effectively and is considering returning to cooking as a form of self-care and routine establishment. Plan: - Continue journaling as needed for emotional processing - Encourage gradual return to enjoyable activities like cooking, as tolerated post-surgery - Maintain use of breathing techniques for stress management 05/12/2025 Major depressive disorder, recurrent, mild (ICD-10 - F33.0) 06/03/2025 Major depressive disorder, recurrent, mild (ICD-10 - F33.0) Major Depressive Disorder Assessment: Patient reports ongoing depressive symptoms despite recent antidepressant medication change. She describes feeling down, tired, and tearful, particularly in the evenings. While acknowledging some improvement from her previous state, Rachel expresses frustration with the inconsistency of her mood and the persistence of depressive symptoms. She attributes this to a potential need for further medication adjustment. No current suicidal ideation is reported, which is an improvement from previous months. Sleep has improved since the reduction in hip pain post-surgery. Plan: - Continue current antidepressant medication as prescribed by Callum - Monitor mood and effectiveness of current medication regimen - Encourage engagement in pleasurable activities (e.g., jesse project mentioned by patient) - Utilize positive self-talk and focus on recovery progress as a coping strategy Generalized Anxiety Disorder Assessment: Patient reports experiencing anxiety, particularly at night. The anxiety is described as an overall feeling rather than racing thoughts. Rachel expresses concern about falling due to her current physical condition, which contributes to her anxiety when moving around. Plan: - Continue practicing relaxation techniques and deep breathing exercises - Implement positive self-talk strategies, focusing on safety and well-being - Encourage use of assistive devices (e.g., cane) to reduce fall risk and associated anxiety 06/03/2025 Generalized anxiety disorder (ICD-10 - F41.1) Major Depressive Disorder Assessment: Patient reports ongoing depressive symptoms despite recent antidepressant medication change. She describes feeling down, tired, and tearful, particularly in the evenings. While acknowledging some improvement from her previous state, Rachel expresses frustration with the inconsistency of her mood and the persistence of depressive symptoms. She attributes this to a potential need for further medication adjustment. No current suicidal ideation is reported, which is an improvement from previous months. Sleep has improved since the reduction in hip pain post-surgery. Plan: - Continue current antidepressant medication as prescribed by Callum - Monitor mood and effectiveness of current medication regimen - Encourage engagement in pleasurable activities (e.g., [employer] project mentioned by patient) - Utilize positive self-talk and focus on recovery progress as a coping strategy Generalized Anxiety Disorder Assessment: Patient reports experiencing anxiety, particularly at night. The anxiety is described as an overall feeling rather than racing thoughts. Rachel expresses concern about falling due to her current physical condition, which contributes to her anxiety when moving around. Plan: - Continue practicing relaxation techniques and deep breathing exercises - Implement positive self-talk strategies, focusing on safety and well-being - Encourage use of assistive devices (e.g., cane) to reduce fall risk and associated anxiety 06/03/2025 Major depressive disorder, recurrent, mild (ICD-10 - F33.0) 06/03/2025 Generalized anxiety disorder (ICD-10 - F41.1) 07/07/2025 Major depressive disorder, recurrent, mild (ICD-10 - F33.0) 07/07/2025 Generalized anxiety disorder (ICD-10 - F41.1) 08/05/2025 Major depressive disorder, recurrent, mild (ICD-10 - F33.0) SSRI/SNRI side effects discussed including but not limited to, gastric upset, nausea, vomiting, diarrhea and/or constipation, weight changes, sexual side effects including loss of libido, increased suicidal thoughts/behavio rs in children and young adults, and serotonin syndrome. 08/05/2025 Generalized anxiety disorder (ICD-10 - F41.1) 04/16/2025 Encounter for screening for depression (ICD-10 - Z13.31) 07/07/2025 Benign essential HTN (ICD-10 - I10) 06/03/2025 Benign essential HTN (ICD-10 - I10) 06/03/2025 Encounter for screening for depression (ICD-10 - Z13.31) Major Depressive Disorder Assessment: Patient reports ongoing depressive symptoms despite recent antidepressant medication change. She describes feeling down, tired, and tearful, particularly in the evenings. While acknowledging some improvement from her previous state, Rachel expresses frustration with the inconsistency of her mood and the persistence of depressive symptoms. She attributes this to a potential need for further medication adjustment. No current suicidal ideation is reported, which is an improvement from previous months. Sleep has improved since the reduction in hip pain post-surgery. Plan: - Continue current antidepressant medication as prescribed by Callum - Monitor mood and effectiveness of current medication regimen - Encourage engagement in pleasurable activities (e.g., jesse project mentioned by patient) - Utilize positive self-talk and focus on recovery progress as a coping strategy Generalized Anxiety Disorder Assessment: Patient reports experiencing anxiety, particularly at night. The anxiety is described as an overall feeling rather than racing thoughts. Rachel expresses concern about falling due to her current physical condition, which contributes to her anxiety when moving around. Plan: - Continue practicing relaxation techniques and deep breathing exercises - Implement positive self-talk strategies, focusing on safety and well-being - Encourage use of assistive devices (e.g., cane) to reduce fall risk and associated anxiety 05/06/2025 Encounter for screening for depression (ICD-10 - Z13.31) Anxiety Assessment: Patient reports feeling nervous about upcoming surgery scheduled for tomorrow. She has been utilizing breathing techniques to manage her anxiety. The patient's anxiety appears to be situational and related to the impending surgical procedure. Despite feeling anxious, she demonstrates a positive outlook and determination to get through the surgery, recognizing the potential benefits for her mobility and pain relief. Plan: - Continue practicing breathing exercises for anxiety management - Encourage use of positive self-talk and focusing on short-term nature of surgical anxiety - Follow up in one month, with option to return sooner if needed Depression with Suicidal Ideation Assessment: Patient reports a history of intermittent suicidal thoughts without plan or intent to act. These thoughts were described as intrusive and occurring on bad days. Since a recent medication change, the patient reports improvement in these symptoms. She has been open about communicating these thoughts when they occur and understands the importance of reporting any recurrence. Plan: - Continue current medication regimen as prescribed by Callum - Monitor for return of suicidal thoughts - Patient to contact both therapist and prescriber immediately if suicidal thoughts recur - Maintain open communication about mood changes and suicidal ideation Coping Strategies and Self-Care Assessment: Patient reports continued use of journaling to process difficult emotions, noting a decrease in the need for this coping strategy recently. She has been implementing breathing techniques effectively and is considering returning to cooking as a form of self-care and routine establishment. 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 She describes experiencing severe depression on Sunday and Sunday of the past week, with some improvement noted today. The patient also reports waking up agitated and angry this morning without an identifiable trigger. These symptoms appear to be long-standing, as the patient states she has been struggling my entire life. Recent life stressors, including long term and the loss of her mother 5 years ago, may be contributing factors. The patient's chronic pain from needing a hip replacement may also be impacting her mood. Recent medication adjustments include switching from fluoxetine to sertraline last Sunday, then reverting to fluoxetine and adding lithium yesterday. These frequent medication changes may be contributing to the patient's emotional instability. Plan: - Continue medication as prescribed by Callum - Monitor mood fluctuations and response to medication changes - Encourage use of coping strategies such as watching familiar movies and crocheting - Introduce an alternative to visualization techniques for letting go of unwanted emotions, such as writing down thoughts and physically discarding them - Validate patient's feelings of agitation, especially in relation to chronic pain - Follow up in one week Chronic Pain and Pending Hip Replacement Surgery Assessment: Patient reports increased pain due to discontinuation of arthritis medication in preparation for potential hip replacement surgery. The surgery is currently scheduled for May 07 but may occur as early as next week if there is a cancellation. Chronic pain is likely contributing to mood disturbances and sleep issues. Patient expresses concern about the surgery's effectiveness in alleviating all her pain. 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 She expresses hurt over lack of contact from former colleagues and poor attendance at her long term dinner. Additionally, the patient is still processing the loss of her mother 5 years ago, with some unresolved guilt over her mother's end-of-life care. These factors may be contributing to her current mood symptoms and sense of identity loss. Plan: - Explore patient's feelings about long term and strategies for finding new purpose - Discuss grief process and validate patient's emotions regarding her mother's - Encourage planned train trip to celebrate the lives of patient's and partner's mothers - Support patient in developing new social connections to replace work relationships - Continue to utilize partner's support and joint friendships as part of support system 04/09/2025 Encounter for screening for depression (ICD-10 - Z13.31) 04/09/2025 Suicidal ideations (ICD-10 - R45.851) Generalized Anxiety Disorder Assessment: Rachel reports experiencing increased anxiety, particularly regarding her son's first solo train travel. She describes physical symptoms of anxiety, including stomach discomfort. Rachel acknowledges difficulty in managing her anxiety despite being on medication. She has been using deep breathing techniques but hasn't tried other coping strategies from [employer] like ice or exercise. Rachel's anxiety appears to be exacerbated by situations where she feels a lack of control, such as her son's independent travel or potential accidents during trips. Evening times are reported as particularly challenging for her anxiety symptoms. The patient expresses a desire to learn how to manage her anxiety beyond medication. Plan: - Continue medication as prescribed, following up with Callum for medication management today - Implement visualization exercises such as Leaves on a Stream for anxiety management - Practice using the 5 senses for anxiety reduction and grounding - Utilize guided meditations on YouTube as a free resource, aiming for 2-5 minutes daily - Incorporate prayer as a form of meditation, focusing on intentional thoughts Mood Disturbance (Irritability and Anger) Assessment: Rachel reports recent episodes of unexplained anger and irritability, which is a new development for her. She describes a recent incident where she felt close to snapping and was easily irritated by her partner's actions. The following day, she experienced a low mood. Rachel notes that these anger episodes have been recent and without identifiable causes. She also mentions a change in her ability to cry, stating that she used to cry easily but now rarely cries, even when feeling the need to do so. These symptoms suggest a potential mood disturbance, which may be related to medication effects, hormonal changes, or increased stress. Plan: - Monitor mood changes, particularly episodes of anger and irritability - Explore potential triggers or stressors contributing to mood changes - Implement stress reduction techniques - Encourage patient to report any significant mood changes or persistent symptoms 03/27/2025 Suicidal ideations (ICD-10 - R45.851) 1. Major Depressive Disorder - Patient reports symptoms consistent with Major Depressive Disorder, including anhedonia, lack of motivation, passive suicidal ideation, and sleep disturbances. - Difficulty initiating and maintaining sleep, with only 3-4 hours of solid sleep per night. - Expresses frustration with ineffectiveness of current medication regimen. - Depression impacting quality of life and ability to engage in desired long term activities. Plan: - Schedule therapy sessions every two weeks as requested by patient. - Explore and address communication barriers between Rachel and her partner Hafsa regarding mental health concerns. - Meet with Callum after this appointment for medication management reevaluation. 2. Generalized Anxiety Disorder - Patient describes symptoms consistent with Generalized Anxiety Disorder, including feeling of impending doom without apparent triggers. - Reports physical manifestations: heavy weight in stomach, past experiences of chest pain. - Experiences racing thoughts, particularly when trying to sleep at night. - Anxiety interfering with ability to enjoy long term and complete household tasks. Plan: - Teach and practice TIP skills for managing anxiety: - Temperature (cold): Using ice or cold water for grounding. - Intense exercise: 20 minutes of physical activity to increase heart rate. - Paced breathing: Square breathing technique (4-4-4-4 count). - Paired muscle relaxation: Tensing and releasing muscles, avoiding jaw clenching. - Encourage practicing anxiety management techniques when not acutely anxious. Follow-up: - Continue with scheduled therapy sessions every two weeks. 04/09/2025 Encounter for screening for depression (ICD-10 - Z13.31) Generalized Anxiety Disorder Assessment: Rachel reports experiencing increased anxiety, particularly regarding her son's first solo train travel. She describes physical symptoms of anxiety, including stomach discomfort. Rachel acknowledges difficulty in managing her anxiety despite being on medication. She has been using deep breathing techniques but hasn't tried other coping strategies from TIP like ice or exercise. Rachel's anxiety appears to be exacerbated by situations where she feels a lack of control, such as her son's independent travel or potential accidents during trips. Evening times are reported as particularly challenging for her anxiety symptoms. The patient expresses a desire to learn how to manage her anxiety beyond medication. Plan: - Continue medication as prescribed, following up with Callum for medication management today - Implement visualization exercises such as Leaves on a Stream for anxiety management - Practice using the 5 senses for anxiety reduction and grounding - Utilize guided meditations on YouTube as a free resource, aiming for 2-5 minutes daily - Incorporate prayer as a form of meditation, focusing on intentional thoughts Mood Disturbance (Irritability and Anger) Assessment: Rachel reports recent episodes of unexplained anger and irritability, which is a new development for her. She describes a recent incident where she felt close to snapping and was easily irritated by her partner's actions. The following day, she experienced a low mood. Rachel notes that these anger episodes have been recent and without identifiable causes. She also mentions a change in her ability to cry, stating that she used to cry easily but now rarely cries, even when feeling the need to do so. These symptoms suggest a potential mood disturbance, which may be related to medication effects, hormonal changes, or increased stress. Plan: - Monitor mood changes, particularly episodes of anger and irritability - Explore potential triggers or stressors contributing to mood changes - Implement stress reduction techniques - Encourage patient to report any significant mood changes or persistent symptoms 04/09/2025 Benign essential HTN (ICD-10 - I10) 03/27/2025 Encounter for screening for depression (ICD-10 - Z13.31) 1. Major Depressive Disorder - Patient reports symptoms consistent with Major Depressive Disorder, including anhedonia, lack of motivation, passive suicidal ideation, and sleep disturbances. - Difficulty initiating and maintaining sleep, with only 3-4 hours of solid sleep per night. - Expresses frustration with ineffectiveness of current medication regimen. - Depression impacting quality of life and ability to engage in desired long term activities. Plan: - Schedule therapy sessions every two weeks as requested by patient. - Explore and address communication barriers between Rachel and her partner Hafsa regarding mental health concerns. - Meet with Callum after this appointment for medication management reevaluation. 2. Generalized Anxiety Disorder - Patient describes symptoms consistent with Generalized Anxiety Disorder, including feeling of impending doom without apparent triggers. - Reports physical manifestations: heavy weight in stomach, past experiences of chest pain. - Experiences racing thoughts, particularly when trying to sleep at night. - Anxiety interfering with ability to enjoy long term and complete household tasks. Plan: - Teach and practice TIP skills for managing anxiety: - Temperature (cold): Using ice or cold water for grounding. - Intense exercise: 20 minutes of physical activity to increase heart rate. - Paced breathing: Square breathing technique (4-4-4-4 count). - Paired muscle relaxation: Tensing and releasing muscles, avoiding jaw clenching. - Encourage practicing anxiety management techniques when not acutely anxious. Follow-up: - Continue with scheduled therapy sessions every two weeks. 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 She describes experiencing severe depression on Sunday and Sunday of the past week, with some improvement noted today. The patient also reports waking up agitated and angry this morning without an identifiable trigger. These symptoms appear to be long-standing, as the patient states she has been struggling my entire life. Recent life stressors, including long term and the loss of her mother 5 years ago, may be contributing factors. The patient's chronic pain from needing a hip replacement may also be impacting her mood. Recent medication adjustments include switching from fluoxetine to sertraline last Sunday, then reverting to fluoxetine and adding lithium yesterday. These frequent medication changes may be contributing to the patient's emotional instability. Plan: - Continue medication as prescribed by Callum - Monitor mood fluctuations and response to medication changes - Encourage use of coping strategies such as watching familiar movies and crocheting - Introduce an alternative to visualization techniques for letting go of unwanted emotions, such as writing down thoughts and physically discarding them - Validate patient's feelings of agitation, especially in relation to chronic pain - Follow up in one week Chronic Pain and Pending Hip Replacement Surgery Assessment: Patient reports increased pain due to discontinuation of arthritis medication in preparation for potential hip replacement surgery. The surgery is currently scheduled for May 07 but may occur as early as next week if there is a cancellation. Chronic pain is likely contributing to mood disturbances and sleep issues. Patient expresses concern about the surgery's effectiveness in alleviating all her pain. 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 She expresses hurt over lack of contact from former colleagues and poor attendance at her long term dinner. Additionally, the patient is still processing the loss of her mother 5 years ago, with some unresolved guilt over her mother's end-of-life care. These factors may be contributing to her current mood symptoms and sense of identity loss. Plan: - Explore patient's feelings about long term and strategies for finding new purpose - Discuss grief process and validate patient's emotions regarding her mother's - Encourage planned train trip to celebrate the lives of patient's and partner's mothers - Support patient in developing new social connections to replace work relationships - Continue to utilize partner's support and joint friendships as part of support system 04/23/2025 Encounter for screening for cardiovascular disorders (ICD-10 - Z13.6) Patient had reduction in suicidal ideation and/or behavior upon follow-up assessment within 120 days of index assessment ([id number]) 04/23/2025 Encounter for screening for depression (ICD-10 - Z13.31) Anxiety Assessment: Rachel reports experiencing anxiety, particularly related to her upcoming hip surgery scheduled for May 07, two weeks from the date of this session. She expresses concern about the surgery's effectiveness in alleviating her pain, which extends beyond her hip to her entire leg. The anxiety has been exacerbated by recent changes in her medication regimen, including discontinuation of certain medications in preparation for surgery. Despite these challenges, Rachel has been implementing coping strategies such as journaling, breathing exercises, and self-talk to manage her anxiety. She reports some success with these techniques, noting that while anxiety is still present, it is not as bad as it was. Plan: - Continue to encourage use of coping strategies: journaling, breathing exercises, and self-talk - Discuss and reinforce fact-checking techniques to address negative thoughts - Monitor anxiety levels, especially in relation to medication changes and upcoming surgery - Follow up in two weeks to assess anxiety management and provide support around the time of surgery Chronic Pain Management Assessment: Rachel is experiencing chronic pain in her leg and hip, which was initially investigated as back pain due to a bulging disc. Subsequent evaluations, including an x-ray and neurologist consultation, identified the hip as the primary source of pain. A steroid injection in the hip previously provided significant relief, confirming the diagnosis. Currently, Rachel is unable to receive further injections due to the upcoming surgery. She reports variable pain levels, which appear to be influenced by her medication regimen, which has been adjusted in preparation for surgery. Plan: - Continue to monitor pain levels, especially in relation to medication changes - Encourage ongoing communication about pain levels and their impact on daily activities Self-Care and Coping Strategies Assessment: Rachel has been making efforts to engage in self-care activities, showing improvement in her ability to focus on personal needs. She reports increased interest and engagement in crocheting, online tamara, and reading. Rachel acknowledges the challenge of prioritizing self-care due to her tendency to focus on caring for others. She has been utilizing a light therapy box as part of her treatment regimen. Plan: - Reinforce the importance of self-care, especially during the recovery period - Encourage continued use of enjoyable activities (crocheting, tamara, reading) as coping strategies - Continue use of light therapy box - Explore additional self-care activities that can be incorporated into daily routine - Discuss strategies for balancing self-care with caring for others 05/06/2025 Negative depression screening (ICD-10 - Z13.31) 04/16/2025 Generalized anxiety disorder (ICD-10 - F41.1) continue lavendar oil supplament. (calm aide) 03/27/2025 Encounter for screening for cardiovascular disorders (ICD-10 - Z13.6) 1. Major Depressive Disorder - Patient reports symptoms consistent with Major Depressive Disorder, including anhedonia, lack of motivation, passive suicidal ideation, and sleep disturbances. - Difficulty initiating and maintaining sleep, with only 3-4 hours of solid sleep per night. - Expresses frustration with ineffectiveness of current medication regimen. - Depression impacting quality of life and ability to engage in desired long term activities. Plan: - Schedule therapy sessions every two weeks as requested by patient. - Explore and address communication barriers between Rachel and her partner Hafsa regarding mental health concerns. - Meet with Callum after this appointment for medication management reevaluation. 2. Generalized Anxiety Disorder - Patient describes symptoms consistent with Generalized Anxiety Disorder, including feeling of impending doom without apparent triggers. - Reports physical manifestations: heavy weight in stomach, past experiences of chest pain. - Experiences racing thoughts, particularly when trying to sleep at night. - Anxiety interfering with ability to enjoy long term and complete household tasks. Plan: - Teach and practice TIP skills for managing anxiety: - Temperature (cold): Using ice or cold water for grounding. - Intense exercise: 20 minutes of physical activity to increase heart rate. - Paced breathing: Square breathing technique (4-4-4-4 count). - Paired muscle relaxation: Tensing and releasing muscles, avoiding jaw clenching. - Encourage practicing anxiety management techniques when not acutely anxious. Follow-up: - Continue with scheduled therapy sessions every two weeks. 04/23/2025 Benign essential HTN (ICD-10 - I10) Patient had reduction in suicidal ideation and/or behavior upon follow-up assessment within 120 days of index assessment ([id number]) 04/09/2025 Other Learning About Depression Screening material was printed, Sertraline material was printed Rachel, a 65-year-old female with a history of anxiety and depression, presents with worsening anxiety, increased irritability, and persistent passive suicidal ideation despite current medication regimen. Generalized Anxiety Disorder Assessment: Patient reports worsening anxiety symptoms, particularly in the evenings, with a current self-rated anxiety level of 8/10. LISSETTE-7 score of 8 indicates moderate anxiety. Current medication regimen, including fluoxetine 60mg daily and buspirone 10 mg bid, appears to be inadequate for symptom management. Patient also reports increased irritability, which may be related to anxiety symptoms. Family history of anxiety in sister, son, and mother suggests possible genetic predisposition . Plan: - Increase buspirone to 15mg PO twice daily - Begin transition from fluoxetine to sertraline: - Taper fluoxetine: 40mg for 7 days, then 20mg for 7 days, then discontinue - Start sertraline: half tablet for 7 days, then full tablet - Recommend Calm-Aid (lavender oil) as holistic supplement - consider hydroxyzine as needed for acute anxiety or agitation- not recommended in geriatric - Follow up in 2 weeks Major Depressive Disorder Assessment: Patient reports current depression level of 2-3/10, indicating mild symptoms. PHQ-9 score of 4 and BDI score of 10 also suggest mild depression. Patient reports loss of interest in previously enjoyed activities and struggles with motivation. Recent passive suicidal thoughts couple weeks ago, but no active plan. Current fluoxetine regimen may be contributing to inadequate symptom control. Plan: - Transition from fluoxetine to sertraline (as detailed in anxiety management plan) - Continue therapy with Aziza every other week - Monitor for changes in mood and suicidal ideation during medication transition Insomnia Assessment: Patient reports sleeping only 4 hours per night, which may be contributing to or exacerbating anxiety and depression symptoms. Plan: - Monitor sleep patterns during medication transition - Reassess sleep at follow-up appointment Cognitive Function Assessment: Cognitive assessment performed with a score of 29/30, indicating no signs of dementia. However, proactive measures for cognitive maintenance are advisable given the patient's age and history. Plan: - Recommend engaging in puzzles for cognitive maintenance The note is transcribed using speech recognition software. It is a reflection of a visit with the patient. It might have some inaccuracy, including medication names and transcribing errors, though efforts have been made to correct them. 04/16/2025 Other [place]y materia l was printed, [place]-E[place]y material was printed Rachel presents with worsening depression, including occasional suicidal thoughts, and is currently transitioning from Prozac to sertraline. Major Depressive Disorder with Suicidal Ideation Assessment: Patient reports worsening depression, rating it 10/10 in severity. She is currently transitioning from Prozac 60mg to sertraline 25mg, with the transition beginning on Sunday. Patient experienced symptom exacerbation on Sunday, with some improvement on Sunday, followed by significant worsening on Sunday and morning. Occasional suicidal thoughts are present, but without active plan or intent. Anxiety is rated at 4/10, overshadowed by depressive symptoms. No hallucinations , delusions, or paranoia reported. Sleep and appetite remain unaffected. Plan: - Continue current medication regimen until Sunday: Prozac 60mg and sertraline 25mg - Start lithium 150mg daily for mood stabilization - Informed patient of potential side effects of lithium - Advised adequate hydration to mitigate side effects - Continue other current medications. - Attend scheduled therapy appointment tomorrow - Follow up with clinician in one week (next ) - Utilize crisis prevention hotline (576) if needed - Reassess medication regimen and lithium efficacy at next appointment The note is transcribed using speech recognition software. It is a reflection of a visit with the patient. It might have some inaccuracy, including medication names and transcribing errors, though efforts have been made to correct them. 04/23/2025 Other Depression Assessment: Patient reports current depression severity as 2/10, attributing it primarily to weather conditions. This indicates a mild level of depressive symptoms. The patient has recently completed a course of lithium and is in the process of tapering off Prozac while transitioning to sertraline. The tapering process is ongoing, with the patient currently at 60 mg of Prozac, moving to 40 mg, and maintaining 50 mg of sertraline. Plan: - Continue tapering Prozac: Decrease to 40 mg PO daily - Sertraline: - Continue at 50 mg PO daily - Increase to 75 mg PO daily (patient requested increase) - 50 mg + 25 mg - Discontinue lithium - Follow up after completion of medication taper - send refill of lithium 150 mg as a safety net for if a restart is needed Anxiety Assessment: Patient reports current anxiety level as 1-3/10, indicating mild anxiety symptoms. The patient is currently transitioning from Prozac to sertraline for management of anxiety symptoms. Plan: - Continue sertraline as outlined in depression management plan - Monitor anxiety symptoms during medication transition The note is transcribed using speech recognition software. It is a reflection of a visit with the patient. It might have some inaccuracy, including medication names and transcribing errors, though efforts have been made to correct them. Patient had reduction in suicidal ideation and/or behavior upon follow-up assessment within 120 days of index assessment (M1357) 05/06/2025 Rochelle Ramos is a patient undergoing medication transition from Prozac to sertraline for anxiety and depression management, with upcoming surgery scheduled for the following day. Anxiety and Depression Assessment: Patient reports feeling pretty good overall but is experiencing increased anxiety due to upcoming surgery. Current medication regimen includes sertraline 75 mg daily (50 mg + 25 mg tablets) and Buspar 15 mg twice daily. Patient recently completed cross-titratio n from Prozac to sertraline, with last dose of Prozac taken on the previous Sunday. [place]-E[place]y has been discontinued without reported issues. Patient rates anxiety as 5/10 and depression as 2/10 on the K8 scale. No suicidal ideation, homicidal ideation, hallucinations , delusions, or paranoia reported. Sleep and appetite appear stable. Plan: - Continue sertraline 75 mg daily (50 mg + 25 mg tablets) - Continue Buspar 15 mg twice daily - Advised patient about increased bleeding risk with SSRIs during upcoming surgery - Provided 90-day supply of current medications - Follow-up appointment to be scheduled after surgery The note is transcribed using speech recognition software. It is a reflection of a visit with the patient. It might have some inaccuracy, including medication names and transcribing errors, though efforts have been made to correct them. 06/03/2025 Other 1. Major Depressive Disorder - Patient rates depression at 5/10. - Experiences tearfulness and days of feeling off. - Sleep has improved to 6 hours with calm aide - No suicidal ideation, panic attacks, or nervous breakdowns reported. - Appetite remains normal. - Plan: a. Increase Sertraline to 150 mg PO daily (one and a half tablets of 100 mg). c. increase buspar to Morning - Continue 15 mg, Evening - Increase to 30 mg (2 tablets). d. Continue Calm Aid at bedtime. e. Follow-up appointment in one month. f. Plan to transition care to upstairs provider in two months. 2. Sleep - Sleep has improved to 6 hours with Calm Aid, up from 4 hours. - Plan: a. Continue Calm Aid at bedtime. b. Monitor sleep quality and duration at follow-up. Follow-up: - Schedule next appointment in one month. - Plan: a. Assess response to medication changes. b. Evaluate overall symptom management. c. Prepare for transition to upstairs provider in two months. 07/07/2025 Other 1. Generalized Anxiety Disorder - Patient rates anxiety at 3-4/10. - Experiencing anxiety primarily in evenings around 6-7 PM - Plan: a. Adjust BuSpar dosing to 15 mg three times daily. b. Morning dose with wake-up time (between 10-11:30 AM). c. Afternoon dose at 5 PM. d. Evening dose at 7 PM. 2. Major Depressive Disorder, in remission - Patient reports depression is well-controlled and considers it to be in remission. - Occasionally experiences brief periods of feeling a little off or kind of depressed but these do not persist. - Plan: a. Continue current antidepressant regimen. b. Monitor for any worsening of depressive symptoms. 08/05/2025 Other Stable, cont current medications. -refills sent in Patient educated on all medications including potential benefits, side effects, risks. Educated on proper dosing schedule and importance of compliance. Previous notes from walk in clinic reviewed for continuity of care -Assessment and treatment plan reviewed with patient. -Compliance with treatment plan importance discussed. -Discussed the risks/benefits of this medication -Discussed medication side effects. -Contact office if symptoms worsen. -Discussed that it can take up to 6-8 weeks to see full therapeutic effects of psychotropic medications. -Crisis prevention hotline 988. Plan Of Treatment Pending Test Test Name Order Date UDT 03/27/2025 Next Appt Details Provider Name:Mindy Wilson Cullenолег lucila, 11/04/2025 01:00:00 PM, [address], [facility] [address], [place], [address], Insurance Providers Payer Name Payer Address Payer Phone Subscriber Number Group Number Insured Name Patient Relationship to Insured Coverage Start Date Coverage End Date [employer] [id number] [place] [phone] [id number] RACHEL MORGAN Self - patient is the insured Medical (General) History Medical History History ICD Code Past Psychiatric History: Anxiety Disord er abdominal aortic aneurysm: No atrial fibrillation: No chronic fatigue syndrome: No essential tremor: No hyperlipidemia: yes hypertension: Yes Parkinson's disease: No restless leg syndrome: Yes stroke: No subdural hematoma: No type 1 diabetes mellitus: No vitamin B12 deficiency: No vitamin D deficiency: Yes type 2 diabetes mellitus: No undefined Decreased hearing Gastroesophageal reflux disease without esophagitis Lumbar radiculopathy Iron deficiency anemia Multiple gastric erosions Bursitis of hip Surgical History Surgery Date(Month/Year) hernia repair 06/01/2021 hysterectomy 11/19/2011 repair of urinary bladder 08/19/2022 release of trigger thumb 06/03/2008 Carpal tunnel surgery 03/07/2007 Ligation of hemorrhoid(s) 11/19/1987 hip surgery 04/2025 Hospitalization History Reason Date(Month/Year) surgeries
== END 2025-09-03 14:46 | disposition home or self-care (01) ==
PROVIDERS: PCP Physician Assistant; Visit Provider Podiatrist Foot & Ankle Surgery
DX: B35.1 Tinea unguium (principal)
CPT/HCPCS: 36415; 84450; 84460